=== PATIENT | female | born 1975 | race Caucasian/White ===

== ENCOUNTER 2023-11-23 09:06 | Outpatient (CLI) | payer OTHER, SELFPAY ==
[2023-11-23 11:18] LABS: Hemoglobin A1C 5.4 % (<5.7)
[2023-11-23 12:06] LABS: Free T4 Free Thyroxine 0.97 ng/mL (0.78-2.19); Vitamin D 25 Hydroxy 69.9 ng/mL
[2023-11-23 13:57] LABS: Alanine Aminotransferase 26 U/L (6-35); Albumin Level 4.5 g/dL (3.5-5.1); Alkaline Phosphatase 59 U/L (38-126); Amylase 112 U/L (30-110); Anion Gap 9 mmol/L (4-12); Aspartate Amino Transferase 33 U/L (14-36); Bilirubin,Total 0.4 mg/dL (0.2-1.3); Blood Urea Nitrogen 15 mg/dL (7-17); Calcium 9.1 mg/dL (8.4-10.2); Carbon Dioxide 25 mmol/L (22-30); Chloride 104 mmol/L (98-107); Cholesterol 210 mg/dL (0-200); Estimated Glomerular Filt Rate > 60; Glucose 93 mg/dL (65-110); HDL Direct 61 mg/dL; Lipase 203 U/L (23-300); Potassium 4.4 mmol/L (3.4-5.0); Sodium 138 mmol/L (137-145); Triglycerides 79 mg/dL (<150)
[2023-11-23 14:08] LABS: LDL Cholesterol Direct 124 mg/dL
[2023-11-23 15:06] LABS: Folic Acid > 20.0 ng/mL (2.76->20)
[2023-11-26 14:11] LABS: Insulin Level Total 6.2 uIU/mL (<=18.4)
[2023-11-29 08:17] LABS: T3 Free 3.3 pg/mL
== END 2023-11-23 09:07 | disposition home or self-care (01) ==
DX: R53.83 Other fatigue (principal); E66.9 Obesity, unspecified; R14.0 Abdominal distension (gaseous); E61.1 Iron deficiency; M25.9 Joint disorder, unspecified
CPT/HCPCS: 36415; 80053; 80061; 82150; 82306; 82607; 82746; 83036; 83525; 83690; 84439; 84443; 84480

== ENCOUNTER 2024-06-13 12:01 | Outpatient (CLI) | payer OTHER, SELFPAY ==
[2024-06-14 08:02] LABS: Sex Hormone Binding Globulin 47 nmol/L (17-124)
== END 2024-06-13 12:02 | disposition home or self-care (01) ==
DX: R68.82 Decreased libido (principal)
CPT/HCPCS: 36415; 84270; 84402; 84403

== ENCOUNTER 2024-10-06 09:51 | Outpatient (CLI) | payer OTHER, SELFPAY ==
--- OUTSIDE RECORDS SUMMARY | 2024-10-06 10:58 | XMS_ITS | Patient Health Summary ---
Author Organization [facility] Address [address] [place] [address] Care Team Providers Care Concrete Puddler Name Role Phone Janae Valentin MD Unavailable Arturo Arguello MD Unavailable [phone] Rossana Mcdonald MD Unavailable Unavailab Luiza Mehta DO Primary Care Provider [phone] Note from [facility],non-owned Affiliates and Associated Physician Practices is amultiple site organization consisting of ambulatory clinics and hospital sitesin [place], [place], [place] and [place]. This disclosure is being madepursuant to the Care Everywhere program and may not contain all information available regarding this patient. Last updated 18.[facility] Allergies * Topiramate(Other) -Medium Criticality Medications * Be aware that medications may not be up to date on this document. Alwaysverify current medications with the patient. * Multiple Vitamin (MULTIVITAMIN PO) Take 1 tablet by mouth once daily * Magnesium 400 MG Take by mouth 2 times daily as needed Reasons: Helps with constipation * tretinoin (RETIN-A) 0.025 % cream(Started 12/29/2021) Pea sized amount to entire face at night. 30 days supply. 11 refills by 12/29/2022 * esomeprazole (NEXIUM) 40 MG capsule(Started 01/30/2022) Take 1 (one) capsule by mouth 2 times daily, before breakfast and supper 3 refills by 01/30/2023 * omeprazole (PRILOSEC) 40 MG capsule(Started 03/05/2022) Take 1 (one) capsule by mouth 2 times daily, before breakfast and supper 3 refills by 03/05/2023 * Other(Started 10/10/2022) W-Biest 50/50 Crm 7.5 mg/mL, 2 pumps to skin once daily * DHEA 25 MG(Started 10/10/2022) Take 1 capsule by mouth once daily * Loteprednol Etabonate 0.25 % SUSP 1 drop by Ophthalmic route 4 times daily * SUMAtriptan (Imitrex) 100 MG tablet(Started 05/13/2023) Take medication at the onset of migraine, may repeat in 2 hours 3 refills by 05/12/2024 * escitalopram (Lexapro) 5 MG tablet(Started 05/13/2023) Take 1 (one) tablet by mouth at bedtime Reasons: Feeling Anxious 3 refills by 05/12/2024 * propranolol (Inderal) 10 MG tablet(Started 04/10/2024) TAKE 1 TABLET BY MOUTH EVERY 8 HOURS NEEDED FOR ANXIETY AND FOR INSOMNIA AND FOR PALPITATIONS * hydrOXYzine HCl (Atarax) 25 MG tablet(Started 04/10/2024) TAKE 1 TABLET BY MOUTH 4 TIMES DAILY NEEDED FOR ANXIETY Active Problems Problem Noted Date Diagnosed Date IC (interstitial cystitis) 05/18/2022 Irritable bowel syndrome with constipation 05/18 Other proteinuria 12/27/2021 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 12/27/2021 Blood coagulation disorder 11/28/2021 Migraine with aura 11/28/2021 Infectious colitis 11/03/2021 MTHFR mutation 09/05/2021 Palpitations 09/05/2021 Hot flashes 09/05/2021 Sigmoid ulcer 09/05/2021 Elevated liver enzymes 09/05/2021 Liver lesion 09/05/2021 Healthcare maintenance 09/05/2021 Insomnia 09/05/2021 Esophagitis 09/05/2021 Amenorrhea 09/05/2021 Anxiety 07/18/2021 Chronic migraine without aur a without status migrainosus, not intractable 05/26/2015 Chronic neck pain 05/26/2015 Resolved Problems Problem Noted Date Diagnosed Date Resolved Date Sepsis due to group B Streptococcus 12/13/2021 12/13/2021 Constipation 12/13/2021 01/10/2022 Irregular periods 11/28/2021 12/13/2021 Menometrorrhagia 11/28/2021 12/13/2021 Pain in pelvis 11/28/2021 12/12/2021 Thickened endometrium 11/28/20212021 Syncope and collapse 11/03/2021 022 Post-operative pain 11/03/2021 12/13/19 Pain of breast 03/19/2016 12/12/2021 Symptoms involving urinary system 03/19/2016 12/13/2021 YESENIA (stress urinary incontinence, female) 12/13/2021 POP-Q stage 2 cystocele 04/27 POP-Q stage 2 rectocele 04/27 Uterovaginal prolapse 2021 Immunizations * INFLUENZA VACCINE, TRIV. (AFLURIA, FLUZONE TRIVALENT; 6MO+) (IIV3)(Given 05/21/2013) * Covid Moderna primary monovalent 12+ yr 0.5mL(Given 05/04/2021, 10/12/2020, 09/13/2020) * INFLUENZA VACCINE, CELL CULTURE, QUADR. (FLUCELVAX QUADRIVALENT; 6MO+) (CCIIV4)(Given 07/18/2021) * INFLUENZA VACCINE, HIGH-DOSE, QUADR. (FLUZONE HIGH-DOSE QUADRIVALENT; 65Y+), 0.7 ML (HD-IIV4)(Given 08/26/2014) * INFLUENZA VACCINE, QUADR. (FLUZONE; FLULAVAL; FLUARIX; AFLURIA QUADRIVALENT; 6MO+), 0.5 ML (IIV4)(Given 05/13/2023, 07/23/2016) * TDAP (7yrs+)(Given 05/13/2023, 05/21/2013) Social History Tobacco Use Types Packs/Day Years Used Date Smoking Tobacco: Never Smokeless Tobacco: Never Tobacco Cessation:Counseling Given: Not Answered Alcohol Use Standard Drinks/Week Comments Yes 0 (1 standard drink = 0.6 oz pur e alcohol) occassional AUDIT-C Answer Date Recorded Q1: How often do you have a drink containing alc ohol? Monthly or less 11/03/2021 Q2: How many drinks containi ng alcohol do you have on a typical day when you are drinking? 1 or 2 11/03/2021 Q3: How often do you have si x or more drinks on one occasion? Monthly 11/03/2021 PHQ-2 Answer Date Recorded Patient Health Questionnaire-2 Score 1 05/13/2023 Hunger Vital Sign Answer Date Recorded Within the past 12 months, y ou worried that your food would run out before you got the money to buy more. Never true 11/02/19 22 Within the past 12 months, t he food you bought just didn't last and you didn't have money to get more. Never true 11/01/2021 Sex and Gender Information Value Date Recorded Sex Assigned at Female 07/17/2021 2:10 PM SUBSTITUTE NURSE Gender Identity Female 07/17/2021 2:10 PM SUBSTITUTE NURSE Sexual Orientation Straight 07/17/2021 2: 10 PM SUBSTITUTE NURSE Last Filed Vital Signs Vital Sign Reading Time Taken Comments Blood Pressure 110/68 05/13/2023 9:55 AM CDT Pulse 62 05/13/2023 9:55 AM CDT Temperature 37 C (98.6 F) 05/13/2023 9:55 AM CDT Respiratory Rate 16 01/30/2022 9:51 AM CDT Oxygen Saturation 98% 05/13/2023 9:55 AM CDT Inhaled Oxygen Concentration - - Weight 67.9 kg (149 lb 12.8 oz) 05/13/2023 9:55 AM CDT Height 172.7 cm (5' 8 ) 05/13/2023 9:55 AM CDT Body Mass Index 22.78 05/13/2023 9:55 AM CDT Medical Devices Implanted Type Area Driver Device Identifier Shelf Expiration Date Model / Serial / Lot Sys Ureth Supp Obtryx Midurethral Trnstr Implanted:Qty: 1 on 11/01/2021 by Arturo Arguello MD at [facility] 09/16/2024 [id number] / / [id number] Procedures * URINALYSIS MICROSCOPIC ONLY REFLEXED(Performed 05/13/2023) Performed for 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 * URINALYSIS REFLEX MICROSCOPIC REFLEX CULTURE(Performed 05/13/2023) Performed for 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 * LIPID PROFILE(Performed 05/13/2023) Performed for Screening, ischemic heart disease * CBC W AUTO DIFFERENTIAL(Performed 05/13/2023) Performed for Healthcare maintenance * TSH REFLEX FREE T4(Performed 05/13/2023) Performed for Anxiety * COMPREHENSIVE METABOLIC PANEL(Performed 05/13/2023) Performed for Diabetes mellitus screening * URINALYSIS AUTO - POINT OF CARE (AMB) STL(Performed 01/18/2022) Performed for YESENIA (stress urinary incontinence, female) * CT UROGRAM(Performed 01/11/2022) Performed for Left flank pain * UT ED EGD FLEX TRANSORAL DX(Performed 01/02/2022) Performed for Esophagitis * EGD(Performed 01/02/2022) * UT TANGNTL BX SKIN SINGLE LES(Performed 12/29/2021) Performed for Neoplasm of uncertain behavior of skin * UT TANGNTL BX SKIN EA SEP ADDL(Performed 12/29/2021) Performed for Neoplasm of uncertain behavior of skin * DERMATOPATHOLOGY(Performed 12/29/2021) Performed for Neoplasm of uncertain behavior of skin * URINALYSIS MICROSCOPIC ONLY REFLEXED(Performed 12/12/2021) Performed for Dysuria * COMPREHENSIVE METABOLIC PANEL(Performed 12/12/2021) Performed for Elevated liver enzymes, Liver lesion * URINALYSIS REFLEX MICROSCOPIC REFLEX CULTURE(Performed 12/12/2021) Performed for Dysuria * MITOCHONDRIAL ANTIBODY SCREEN(Performed 12/12/2021) Performed for Elevated liver enzymes * CERULOPLASMIN(Performed 12/12/2021) Performed for Elevated liver enzymes * FERRITIN(Performed 12/12/2021) Performed for Elevated liver enzymes * CENTROMERE B ANTIBODIES(Performed 12/12/2021) Performed for Elevated liver enzymes * SUMI+C3+C4+RA+DNA+SJ+ANTICHROMATIN(Performed 12/12/2021) Performed for Elevated liver enzymes * JENNIFER BLOOD SCREEN W/REFLEX TITER(Performed 12/12/2021) Performed for Elevated liver enzymes * CULTURE URINE(Performed 11/16/2021) Performed for Postop check * CARDIAC EKG ORDER(Performed 11/09/2021) * INFLAMMATORY BOWEL DISEASE PANEL(Performed 11/05/2021) Performed for Colitis * C DIFFICILE GDH AG + TOXIN A+B(Performed 11/04/2021) Performed for Abnormal bowel habits * CULTURE STOOL+ E COLI SHIGA-LIKE TOXIN(Performed 11/04/2021) Performed for Abnormal bowel habits * URINE MICROSCOPIC ONLY(Performed 11/03/2021) Performed for Syncope and collapse * URINALYSIS REFLEX TO MICROSCOPIC NO CULTURE(Performed 11/03/2021) Performed for Syncope and collapse * CT ABDOMEN PELVIS W CONTRAST(Performed 11/03/2021) Performed for Syncope and collapse, Post-operative pain * CREATININE - POCT INTERFACED(Performed 11/03/2021) * XR CHEST 1VW PORTABLE(Performed 11/03/2021) Performed for Syncope and collapse * TROPONIN I(Performed 11/03/2021) * COMPREHENSIVE METABOLIC PANEL(Performed 11/03/2021) * CBC W AUTO DIFFERENTIAL(Performed 11/03/2021) * EKG 12-LEAD(Performed 11/03/2021) Performed for Syncope and collapse * HGB HCT PANEL(Performed 11/02/2021) Performed for Uterovaginal prolapse * PATHOLOGY TISSUE EXAM (STL)(Performed 11/01/2021) Performed for Uterovaginal prolapse * UT SLING OPER STRES INCONTINENCE(Performed 11/01/2021) Performed for N39.3 * UT COMBINED ANT/POST COLPORRHAPHY(Performed 11/01/2021) Performed for N39.3 * HYSTERECTOMY VAGINAL SALPINGO/OOPHORECTOMY(Performed 11/01/2021) Performed for N39.3 * HCG URINE QUALITATIVE - POCT (IP) INTERFACED(Performed 11/01/2021) * HCG URINE QUAL POCT NOTIFICATION(Performed 11/01/2021) * MRI ENTEROGRAPHY(Performed 10/07/2021) Performed for Bloating, Colitis, Altered bowel habits, Blood in stool * CREATININE - POCT INTERFACED(Performed 10/07/2021) * MAMMO BILAT SCREENING W ADIEL(Performed 10/03/2021) Performed for Screening breast examination * CULTURE URINE(Performed 09/21/2021) Performed for YESENIA (stress urinary incontinence, female), POP-Q stage 2 cystocele, POP-Q stage 2 rectocele, Uterine prolapse, Uterovaginal prolapse * CALPROTECTIN FECAL(Performed 09/06/2021) Performed for Diarrhea, unspecified type * PROLACTIN(Performed 09/05/2021) Performed for Amenorrhea * FSH + LH PANEL(Performed 09/05/2021) Performed for Amenorrhea * VITAMIN D 25-HYDROXY(Performed 09/05/2021) Performed for Encounter for vitamin deficiency screening * TSH HI LOW REFLEX FREE T4(Performed 09/05/2021) Performed for Thyroid disorder screening * LIPID PROFILE REFLEX LDL DIRECT(Performed 09/05/2021) Performed for Lipid screening * HEMOGLOBIN A1C(Performed 09/05/2021) Performed for Diabetes mellitus screening * PATHOLOGY TISSUE(Performed 09/04/2021) Performed for Other constipation, Bloating, Epigastric pain * UT ED EGD FLEX TRANSORAL DX(Performed 09/04/2021) Performed for Other constipation, Bloating, Epigastric pain * EGD(Performed 09/04/2021) * HCG URINE QUALITATIVE - POCT (IP) INTERFACED(Performed 09/04/2021) * HCG URINE QUAL POCT NOTIFICATION(Performed 09/04/2021) Performed for Preop examination * URINALYSIS AUTO - POINT OF CARE(Performed 08/31/2021) Performed for YESENIA (stress urinary incontinence, female) * CULTURE URINE(Performed 08/31/2021) Performed for YESENIA (stress urinary incontinence, female) * T4 FREE(Performed 08/30/2021) Performed for Diarrhea, unspecified type * TSH(Performed 08/30/2021) Performed for Diarrhea, unspecified type * TISSUE TRANSGLUTAMINASE AB IGA(Performed 08/30/2021) Performed for Diarrhea, unspecified type * IGA BLOOD(Performed 08/30/2021) Performed for Diarrhea, unspecified type * ERYTHROCYTE SEDIMENTATION RATE(Performed 08/30/2021) Performed for Diarrhea, unspecified type * C-REACTIVE PROTEIN(Performed 08/30/2021) Performed for Diarrhea, unspecified type * COMPREHENSIVE METABOLIC PANEL(Performed 08/30/2021) Performed for Diarrhea, unspecified type * CBC W AUTO DIFFERENTIAL(Performed 08/30/2021) Performed for Diarrhea, unspecified type * PAP IG LB +HPV APTIMA REFLEX 16,18/45 FOR HR POS(Performed 08/15/2021) Performed for Well woman exam with routine gynecological exam * HOLTER MONITOR(Performed 08/01/2021) Performed for Palpitations, Anxiety * TSH+FREE T4+FREE T3(Performed 07/18/2021) Performed for Palpitations * HEMOGLOBIN A1C(Performed 07/18/2021) Performed for Screening for diabetes mellitus * LIPID PROFILE(Performed 07/18/2021) Performed for Screening for lipid disorders * CBC W AUTO DIFFERENTIAL(Performed 07/18/2021) Performed for Generalized abdominal discomfort, Dyspepsia, Palpitations * COMPREHENSIVE METABOLIC PANEL(Performed 07/18/2021) Performed for Generalized abdominal discomfort, Dyspepsia * LIPASE BLOOD(Performed 07/18/2021) Performed for Generalized abdominal discomfort, Dyspepsia * HELICOBACTER PYLORI UREA BREATH TEST(Performed 07/18/2021) Performed for Generalized abdominal discomfort, Dyspepsia * HIV-1 HIV-2 ANTIBODY + HIV P24 AG PANEL(Performed 07/18/2021) Performed for Screening for HIV without presence of risk factors * HEPATITIS C ANTIBODY(Performed 07/18/2021) Performed for Need for hepatitis C screening test * EKG 12-LEAD(Performed 07/18/2021) Performed for Palpitations Results * URINALYSIS MICROSCOPIC ONLY REFLEXED (05/13/2023 10:43 AM CDT) Only the most recent of2 resultswithin the time period is included. WBC UA None seen 0 - 5 /hpf [facility] INSURANCE BILL RBC UA None seen 0 - 2 /hpf [facility] INSURANCE BILL Epithelial Cells (non renal) 0-10 0 - 10 /hpf [facility] INSURANCE BILL Epithelial Cells (renal) NOT AVAILABLE [facility] INSURANCE BILL Comment:Result cannot be obt ained for this observation. Casts ua None seen None seen /lpf [facility] INSURANCE BILL Casts UA NOT AVAILABLE [facility] BILL Comment:Result cannot be obt ained for this observation. Crystals UA NOT AVAILABLE [facility] B[facility] Comment:Result cannot be obt ained for this observation. Crystals UA NOT AVAILABLE [facility] B[facility] Comment:Result cannot be obt ained for this observation. Mucus UA Present Not Estab. /LPF [facility] INSURANCE BILL Bacteria UA None seen None seen/Few [facility] INSURANCE BILL Yeast UA NOT AVAILABLE [facility] BILL Comment:Result cannot be obt ained for this observation. Trichomonas UA NOT AVAILABLE [facility] Comment:Result cannot be obt ained for this observation. Comment Urine NOT AVAILABLE [facility] B[facility] Comment:Result cannot be obt ained for this observation. 05/13/2023 10:4 3 AM CDT 05/13/2023 Narrative Resulting Agency Comment Lab Testing performed at: [facility] [place] [address] [facility] [phone] Luiza Mcgarry DO LAB - URINALYSIS O RDERABLES Performing Organization Address [facility]/ZIP Co de Phone Number [facility] INSURANCE BILL [address] [place] [address] * URINALYSIS REFLEX MICROSCOPIC REFLEX CULTURE (05/13/2023 10:43 AM CDT) Only the most recent of2 resultswithin the time period is included. Specific [place] UA 1.006 1.005 - 1.030 [facility] INSURANCE BILL pH UA 7.0 5.0 - 7.5 [facility] INSURANCE BILL Color UA Yellow Yellow [facility] INSURANCE BILL Appearance Clear Clear [facility] INSURANCE BILL Leukocyte UA Negative Negative [facility] INSURANCE BILL Protein UA Negative Negative/Tra ce [facility] INSURANCE BILL Glucose UA Negative Negative [facility] INSURANCE BILL Ketone UA Negative Negative [facility] INSURANCE BILL Occult Blood Urine Negative Negative [facility] INSURANCE BILL Bilirubin UA Negative Negative [facility] INSURANCE BILL Urobilinogen 0.2 0.2 - 1.0 mg/dL [facility] INSURANCE BILL Nitrite UA Negative Negative [facility] INSURANCE BILL Microscopic Examination Urine [facility] INSURANCE BILL Comment:Microscopic follows if indicated. Microscopic Examination Urine See below: [facility] INSURANCE BILL Comment:Microscopic was chio cated and was performed. Urinalysis Reflex [facility] INSURANCE BILL Comment:This specimen will n ot reflex to a Urine Culture. Urine URINE SPECIMEN OBTAINED BY CLEAN CATCH PROCEDURE / Unknown 05/13/2023 10:43 AM CDT 05/13/2023 Narrative Resulting Agency Comment Lab Testing performed at: [facility] [place] [address] [facility] [id number] Luiza Mcgarry DO LAB - URINALYSIS O RDRUDYBLES Performing Organization Address City/[facility]/ZIP Co de Phone Number [facility] INSURANCE BILL [address] [place] [address] * TSH REFLEX FREE T4 (05/13/2023 10:42 AM CDT) TSH 2.932 0.350 - 4.940 uIU/mL [facility] INSURANCE BILL Blood BLOOD SPECIMEN / Unknown 05/13/2023 10:42 AM CDT 05/13/2023 Narrative Resulting Agency Comment Lab Testing performed at: [facility] [address] [facility] [phone] Luiza Mcgarry DO LAB - CHEMISTRY OR DERABLES [facility] INSURANCE BILL [address] [place] [address] * (ABNORMAL) CBC WITH DIFFERENTIAL (05/13/2023 10:42 AM CDT) Only the most recent of4 resultswithin the time period is included. WBC 8.1 4.4 - 10.7 x10E9/L [facility] INSURANCE BILL RBC 4.56 3.80 - 5.20 x10E12/L [facility] INSURANCE BILL Hemoglobin 14.2 12.0 - 15.6 gm/dL [facility] INSURANCE BILL Hematocrit 45.4 35.9 - 45.5 % [facility] INSURANCE BILL MCV 99.6(H) 80.7 - 98.3 fl [facility] INSURANCE BILL MCH 31.1 26.7 - 34.0 pg [facility] INSURANCE BILL MCHC 31.3 30.8 - 35.9 gm/dL [facility] INSURANCE BILL RDW 13.2 12.1 - 14.9 % [facility] INSURANCE BILL Platelet Count 281 153 - 416 x10E9/L [facility] INSURANCE BILL Comment:MPV FL BLOOD ([facility]) 1 1.1 fl 9.4-12.9 Granulocytes % 57.6 44.0 - 73.0 % [facility] INSURANCE BILL Lymphocytes % 29.8 20.0 - 43.0 % [facility] INSURANCE BILL Monocytes % 9.9 5.0 - 13.0 % [facility] INSURANCE BILL Eosinophils % 2.0 0.0 - 6.0 % [facility] INSURANCE BILL Basophils % 0.5 0.0 - 2.0 % [facility] INSURANCE BILL Granulocytes Absolute 4.67 2.01 - 7.14 x10E9/L [facility] INSURANCE BILL Lymphocytes Absolute 2.42 1.07 - 3.94 x10E9/L [facility] INSURANCE BILL Monocytes Absolute 0.80 0.26 - 1.07 x10E9/L [facility] INSURANCE BILL Eosinophils Absolute 0.16 0 - 0.47 x10E9/L [facility] INSURANCE BILL Basophils Absolute 0.04 0 - 0.08 x10E9/L [facility] INSURANCE BILL Immature Granulocytes 0.2 0 - 1 % [facility] INSURANCE BILL Immature Granulocytes Absolute 0.02 0.00 - 0.06 x10E9/L [facility] INSURANCE BILL nRBC 0 /100 WBC [facility] INSURANCE BILL Blood BLOOD SPECIMEN / Unknown 05/13/2023 10:42 AM CDT 05/13/2023 Narrative Resulting Agency Comment Lab Testing performed at: [address] [phone] Luiza Mcgarry DO LAB - HEMATOLOGY O RDERABLES [facility] INSURANCE BILL [address] [place] [address] * (ABNORMAL) COMPREHENSIVE METABOLIC PANEL (05/13/2023 10:42 AM CDT) Only the most recent of5 resultswithin the time period is included. Glucose 85 70 - 105 mg/dL [facility] INSURANCE BILL BUN 10 5.3 - 18.7 mg/dL [facility] INSURANCE BILL Creatinine 0.82 0.57 - 1.11 mg/dL [facility] INSURANCE BILL eGFR by CKD-EPI 88(L) >=90 mL/min/1.7 3 m2 [facility] INSURANCE BILL Sodium 139 136 - 145 mmol/L [facility] INSURANCE BILL Potassium 4.7 3.5 - 5.1 mmol/L [facility] INSURANCE BILL Chloride 103 98 - 107 mmol/L [facility] INSURANCE BILL CO2 28 22 - 29 mmol/L [facility] INSURANCE BILL Calcium 9.7 8.4 - 10.4 mg/dL [facility] INSURANCE BILL Protein Total 6.9 6.4 - 8.3 gm/dL [facility] INSURANCE BILL Albumin 3.9 3.4 - 5.0 gm/dL [facility] INSURANCE BILL Bilirubin Total 0.5 0.2 - 1.2 mg/dL [facility] INSURANCE BILL Alkaline Phosphatase 51 40 - 150 U/L [facility] INSURANCE BILL AST 16 5 - 34 U/L [facility] INSURANCE BILL ALT 15 0 - 55 U/L [facility] INSURANCE BILL Blood BLOOD SPECIMEN / Unknown 05/13/2023 10:42 AM CDT 05/13/2023 Narrative Resulting Agency Comment Lab Testing performed at: [address] [phone] Luiza E Bensinger DO LAB - CHEMISTRY OR DERABLES Performing Organization Address City/[facility] Co de Phone Number [facility] INSURANCE BILL [address] [place] [address] * (ABNORMAL) LIPID PROFILE (LIPID PANEL) (05/13/2023 10:42 AM CDT) Only the most recent of2 resultswithin the time period is included. Cholesterol 209(H) <200 mg/dL [facility] INSURANCE BILL Triglycerides 139 <150 mg/dL [facility] INSURANCE BILL HDL Cholesterol 71 >40 mg/dL [facility] INSURANCE BILL VLDL Calculated 28 <=30 mg/dL [facility] INSURANCE BILL LDL Calculated 110 <130 mg/dL [facility] INSURANCE BILL Blood BLOOD SPECIMEN / Unknown 05/13/2023 10:42 AM CDT 05/13/2023 Narrative Resulting Agency Comment Lab Testing performed at: [address] [phone] Luiza Mcgarry DO LAB - CHEMISTRY OR DERABLES Performing Organization Address City/[facility] Co de Phone Number [facility] INSURANCE BILL [address] [place] [address] * URINALYSIS AUTO - POINT OF CARE (AMB) STL (01/18/2022 9:20 AM CDT) Clarity UA POCT na [facility] Color UA POCT na [facility] Leukocyte UA neg Negative [facility] Nitrite UA POCT neg Negative [facility] Urobilinogen UA 0.2 0.1 - 1.[address] [facility] Protein UA POCT neg Negative [facility] pH UA 8.0 5.0 - 8.[address] [facility] Blood UA neg Negative [facility] Specific [place] UA POCT 1.015 1.002 - 1.[address] [facility] Ketone UA neg Negative [facility] Bilirubin UA POCT neg Negative [facility] Glucose UA neg Negative [facility] Expiration Date 05/04/[address] [facility] Lot # [id number] [facility] QC Verified Yes Yes [facility] Urine URINE / Unknown 01/18/2022 9 :20 AM CDT Viri Leiva MD LAB - POINT OF CAR E ORDERABLES Performing Organization Address City/State/[facility] Co de Phone Number [facility] [address], [address] [phone] * CT UROGRAM (01/11/2022 9:20 AM CDT) Anatomical Region Laterality Modality Abdomen, Pelvis Computed Tomogra phy 01/11/2022 10:4 2 AM CDT Impressions 01/11/2022 10:47 AM CDT No renal calculi. No renal mass. No hydronephrosis. The bladder is unremarkable. Constipation. *Reading Radiologist: Joepsh Kapadia on 01/11/2022 at 10:47 AM Narrative 01/11/2022 10:[address] urogram INDICATION: Left flank pain. Acute cystitis. TECHNIQUE: Helical images were obtained through the abdomen and pelvis without contrast, during venous phase imaging and during 8 minute delay. Sagittal and coronal reconstructions were performed. Contrast: 100 cc of Isovue-370 was utilized. FINDINGS: The study is compared to the exam from 11/03/2021. The lung bases are clear of infiltrate. There are mild degenerative changes of the spine. There is no liver mass. There is no intrahepatic biliary dilatation. No gallstones are seen within the gallbladder. The pancreas is unremarkable. The spleen is unremarkable. There is no adrenal mass. Noncontrast images show no renal calculi. The kidneys enhance homogeneously. There is no mass. The kidneys excrete contrast bilaterally. The ureters are normal in caliber. No calculi are seen along the course of the ureters. The bladder fills with contrast and is unremarkable. The aorta is normal in caliber. The IVC is normal in caliber. There is no retroperitoneal adenopathy. There is no mesenteric adenopathy. The stomach is unremarkable. The small bowel loops in the upper abdomen are nondistended with no bowel wall thickening. Feces is seen throughout the colon. There is no thickening of the wall of the ascending, transverse or descending colons. Within the pelvis: The appendix is not visualized to advantage. However there is no CT evidence for acute appendicitis. The patient is status post hysterectomy. There are no adnexal masses. There is no free fluid within the pelvis. There is no inguinal adenopathy. There is no pelvic adenopathy. Feces is seen within the rectosigmoid colon. Procedure Note Joesph Kapadia MD - 01/11/2022 CT urogram INDICATION: Left flank pain. Acute cystitis. TECHNIQUE: Helical images were obtained through the abdomen and pelvis without contrast, during venous phase imaging and during 8 minute delay. Sagittal and coronal reconstructions were performed. Contrast: 100 cc of Isovue-370 was utilized. FINDINGS: The study is compared to the exam from 11/03/2021. The lung bases are clear of infiltrate. There are mild degenerative changes of the spine. There is no liver mass. There is no intrahepatic biliary dilatation. No gallstones are seen within the gallbladder. The pancreas is unremarkable. The spleen is unremarkable. There is no adrenal mass. Noncontrast images show no renal calculi. The kidneys enhance homogeneously. There is no mass. The kidneys excrete contrast bilaterally. The ureters are normal in caliber. No calculi are seen along the course of the ureters. The bladder fills with contrast and is unremarkable. The aorta is normal in caliber. The IVC is normal in caliber. There is no retroperitoneal adenopathy. There is no mesenteric adenopathy. The stomach is unremarkable. The small bowel loops in the upper abdomen are nondistended with no bowel wall thickening. Feces is seen throughout the colon. There is no thickening of the wall of the ascending, transverse or descending colons. Within the pelvis: The appendix is not visualized to advantage. However there is no CT evidence for acute appendicitis. The patient is status post hysterectomy. There are no adnexal masses. There is no free fluid within the pelvis. There is no inguinal adenopathy. There is no pelvic adenopathy. Feces is seen within the rectosigmoid colon. IMPRESSION No renal calculi. No renal mass. No hydronephrosis. The bladder is unremarkable. Constipation. *Reading Radiologist: Joesph Kapadia on 01/11/2022 at 10:47 AM Arturo Arguello MD CT ORDERABLES * EGD (01/02/2022 8:40 AM CDT) Report Endoscopy POC Endoscopy Department Report __ _ Patient Name: Anabell Louie Procedure Date: 01/02/2022 8:40 AM Date of : 1975 Classification: Outpatient Gender: Female Ethnicity: Not or Race: White __ _ Providers: Mag Chang MD, Delon Chang (Fellow) Referring MD: Luiza Ansari (Referring ), Sarita Mckeon (Referring ) Procedure: Upper GI endoscopy Indications: Esophageal reflux symptoms that persist despite appropriate therapy Medications: Monitored Anesthesia Care Patient Profile: This is a 46 year old female with history of esophagitis presenting to endoscopy to check for mucosal healing. Currently on pantoprazole 40mg QD. Description of Procedure: Pre-Anesthesia Assessment: - Prior to the procedure, a History and Physical was performed, and patient medications and allergies were reviewed. The patient's tolerance of previous anesthesia was also reviewed. The risks and benefits of the procedure and the sedation options and risks were discussed with the patient. All questions were answered, and informed consent was obtained. Prior Anticoagulants: The patient has taken no previous anticoagulant or antiplatelet agents. ASA Grade Assessment: II - A patient with mild systemic disease. After reviewing the risks and benefits, the patient was deemed in satisfactory condition to undergo the procedure. After obtaining informed consent, the endoscope was passed under direct vision. Throughout the procedure, the patient's blood pressure, pulse, and oxygen saturations were monitored continuously. The GIF-HQ190 was introduced through the mouth, and advanced to the second part of duodenum. The upper GI endoscopy was accomplished without difficulty. The patient tolerated the procedure well. Findings: Esophagogastric landmarks were identified: the Z-line was found at 35 cm, the gastroesophageal junction was found at 35 cm and the site of hiatal narrowing was found at 38 cm from the incisors. LA Grade B (one or more mucosal breaks greater than 5 mm, not extending between the tops of two mucosal folds) esophagitis was found at the gastroesophageal junction. Improved from prior EGD, but still present. No biopsies obtained A non-obstructing partial Schatzki ring was found at the gastroesophageal junction. A 3 cm hiatal hernia was seen on both forward view and retroflexion in stomach. The exam of the stomach was otherwise normal. The examined duodenum was normal. Estimated Blood Loss: Estimated blood loss was minimal. Complications: No immediate complications. Impression: 1) LA Grade B reflux esophagitis. Slightly improved from last EGD 2) 3 cm hiatal hernia. 3) Partial Schatzki ring in distal esophagus 4) Normal examined duodenum and stomach. 5) No specimens collected. Recommendation: - Patient has a contact number available for emergencies. The signs and symptoms of potential delayed complications were discussed with the patient. Return to normal activities tomorrow. Written discharge instructions were provided to the patient. - Resume previous diet. - Change pantoprazole to Prilosec (omeprazole) 40 mg PO BID. - Avoid aspirin, ibuprofen, naproxen, or other non-steroidal anti-inflammatory drugs as much as possible - Repeat upper endoscopy in 3-6 months to check healing. - Return to GI office as previously scheduled. Attending Participation: I was present and participated during the entire procedure, including non-leija portions. Procedure Code(s): --- Professional --- 86730, Esophagogastroduode noscopy, flexible, transoral; diagnostic, including collection of specimen(s) by brushing or washing, when performed (separate procedure) Diagnosis Code(s): --- Professional --- K21.0, Gastro-esophageal reflux disease with esophagitis K44.9, Diaphragmatic hernia without obstruction or gangrene CPT copyright 2019 [employer]. All rights reserved. The codes documented in this report are preliminary and upon industrial diamond polisher review may be revised to meet current compliance requirements. Mag Chang MD 01/02/2022 9:36:43 AM This report has been signed electronically. Note Initiated On: 01/02/2022 8:40 AM Number of Addenda: [address] PROVATION 01/02/2022 8:40 AM CDT Mag Chang MD GI PROCEDURE ORDERAB LES [facility] PROVATION * UT TANGNTL BX SKIN EA SEP ADDL, UT TANGNTL BX SKIN SINGLE LES (12/29/2021 12:46 PM CDT) Narrative Martha Salter MD - 12/29/2021 12:46 PM CDT Conor Acuña MD 12/29/2021 12:47 PM Risks, benefits and alternatives to shave biopsy were discussed with the patient. Verbal consent was obtained. Encounter Diagnoses Name Primary? Acne vulgaris Yes Neoplasm of uncertain behavior of skin Actinic skin damage Lentigines Multiple benign melanocytic nevi of upper and lower extremities and trunk Location: L waistline, L mid-back, R upper abdomen, R lower leg Skin prep: Alcohol Anesthesia: 1% lidocaine with epinephrine Hemostasis: Aluminum chloride Dressing and wound care discussed. Specimen(s) placed in a patient labeled container and sent to [facility] Dermatopathology. Patient agrees to phone call for results and message if not available. Conor Acuña MD Martha Salter MD PROCEDURE/ROCHELLE R SURGICAL ORDERABLES * Dermatopathology (Specimen Count = 3) (12/29/2021 12:00 AM CDT) Case Report Dermatopathology Report Case: [id number] Authorizing Provider: Martha Salter, Collected: 12/29/2021 12:00 AM Ordering Location: [facility] Received: 12/29/2021 02:26 PM Dermatology Pathologist: Martha Salter MD Specimens: A) - Skin, left waistline B) - Skin, left mid back C) - Skin, right upper abdomen D) - Skin, right lower leg 2 1:34 PM CDT DERMATOPATHOLOGY LABORATORY Final Diagnosis Specimen A. SKIN, left waistline: INTRADERMAL MELANOCYTIC NEVUS (D22.5) Specimen B. SKIN, left mid back: INTRADERMAL MELANOCYTIC NEVUS (D22.5) Specimen C. SKIN, right upper abdomen: INTRADERMAL MELANOCYTIC NEVUS (D22.5) (see microscopic description) Specimen D. SKIN, right lower leg: JUNCTIONAL MELANOCYTIC NEVUS, IRRITATED (D22.71) POST-INFLAMMATORY PIGMENT ALTERATION (L81.9) 2 1:34 PM CDT DERMATOPATHOLOGY LABORATORY Clinical History A-C: IDN vs. Acrochordon D: Nevus, R/O Atypia 2 1:34 PM CDT DERMATOPATHOLOGY LABORATORY Gross Description Specimen A: Received is one formalin filled container labeled with the patient's name and designated left waistline. The specimen consists of a shave biopsy measuring 3c3q3oj. Jar 0. Specimen B: Received is one formalin filled container labeled with the patient's name and designated left mid back. The specimen consists of a shave biopsy measuring 5k2b7qs. Jar 0. Specimen C: Received is one formalin filled container labeled with the patient's name and designated right upper abdomen. The specimen consists of a shave biopsy measuring 1p2k6ab. Jar 0. Specimen D: Received is one formalin filled container labeled with the patient's name and designated right lower leg. The specimen consists of a shave biopsy with two pieces measuring 9d6c6pq and 9r4f4by. Jar 0. 2 1:34 PM CDT DERMATOPATHOLOGY LABORATORY Microscopic Description Specimen A. SKIN, left waistline: There are nests of cytologically bland melanocytes within the dermis that mature with depth. Specimen B. SKIN, left mid back: There are nests of cytologically bland melanocytes within the dermis that mature with depth. Specimen C. SKIN, right upper abdomen: There are nests of cytologically bland melanocytes within the dermis that mature with depth. Additional deeper sections were obtained and reviewed. Specimen D. SKIN, right lower leg: There are nests of melanocytes at the dermal-epidermal junction. There is melanin pigment in the stratum corneum. There is abundant melanin within melanophages around the superficial vascular plexus. MART-1/Melan-A immunohistochemical stain highlights the melanocytes as above. 2 1:34 PM T DERMATOPATHOLOGY LABORATORY Disclaimer An external and internal positive and negative controls are appropriate for the histochemical, immunohistochemical and immunofluorescence stain(s) in this case (if any), except where stated explicitly. The performance characteristics of the stain(s) cited in this report were developed and its performance characteristic determined by the Dermatopathology Laboratory at [facility], directed by Dr. Alvaro Xiong. These tests need not be, and therefore are not, approved by the [place] Food and Drug Administration. The tests are used for clinical purposes. Billing Codes Specimen Charges Stain Charges 10153 [id number] [id number] 1 1 1 1 25115 1 2 1:34 PM CDT DERMATOPATHOLOGY LABORATORY Embedded Images 2 1:34 PM CDT DERMATOPATHOLOGY LABORATORY Pathology/Cytology TISSUE SPECIMEN FROM SKIN / Unknown 12/29/2021 12/29/2021 2:26 PM CDT Miscellaneous samples (specimen) TISSUE SPECIMEN FROM SKIN / Unknown 12/29/2021 12/29/2021 2:26 PM CDT Miscellaneous samples (specimen) TISSUE SPECIMEN FROM SKIN / Unknown 12/29/2021 12/29/2021 2:26 PM CDT Miscellaneous samples (specimen) TISSUE SPECIMEN FROM SKIN / Unknown 12/29/2021 12/29/2021 2:35 PM CDT Martha Salter MD LAB - PATHOLOG Y/CYTOLOGY ORDERABLES DERMATOPATHOLOGY LABORATORY [facility] - Department of Dermatology [address], [address] [phone] * SUMI+C3+C4+RA+DNA+SJ+ANTICHROMATIN (12/12/2021 2:18 PM CDT) Complement C3 120 82 - 167 mg/dL [facility] INSURANCE BILL Complement C4 28 12 - 38 mg/dL [facility] INSURANCE BILL [employer] Antibody 0.5 0.0 - 0.9 AI [facility] INSURANCE BILL Lazar (SUMI) Antibody <0.2 0.0 - 0.9 AI [facility] INSURANCE BILL Rheumatoid Factor <10.0 <14.0 IU/mL [facility] INSURANCE BILL Antichromatin Antibodies <0.2 0.0 - 0.9 AI [facility] INSURANCE BILL Sjogren's Antibodies (SSA) <0.2 0.0 - 0.9 AI [facility] INSURANCE BILL Sjogren's Antibodies (SSB) <0.2 0.0 - 0.9 AI [facility] INSURANCE BILL Anti-dsDNA Quantitative <1 0 - 9 IU/mL [facility] INSURANCE BILL Comment: Negative <5 Equivocal 5 - 9 Positive >9 FASTING Blood BLOOD SPECIMEN / Unknown 12/12/2021 2:18 PM CDT 12/12/2021 Narrative Resulting Agency Comment Lab Testing performed at: [facility] [address] [facility] [phone] Luiza Mcgarry DO LAB - SEROLOGY ORD ERABLES [facility] INSURANCE BILL [address] [place] [address] * CENTROMERE B ANTIBODIES (12/12/2021 2:18 PM CDT) Centromere B Antibody <0.2 0.0 - 0.9 AI [facility] INSURANCE BILL Comment:FASTING Blood BLOOD SPECIMEN / Unknown 12/12/2021 2:18 PM CDT 12/12/2021 Narrative Resulting Agency Comment [facility]: [facility] [address] [facility] [phone] Luiza Mcgarry DO LAB - SEROLOGY ORD ERABLES Performing Organization Address [facility] Co de Phone Number [facility] [address] [place] [address] * MITOCHONDRIAL ANTIBODY SCREEN (12/12/2021 2:18 PM CDT) Mitochondrial M2 Antibody <20.0 0.0 - 20.0 Units [facility] INSURANCE BILL Comment: Negative 0.0 - 20.0 Equivocal 20.1 - 24.9 Positive >24.9 . Mitochondrial (M2) Antibodies are found in 90-96% of patients with primary biliary cirrhosis. FASTING Blood BLOOD SPECIMEN / Unknown 12/12/2021 2:18 PM CDT 12/12/2021 Narrative Resulting Agency Comment Lab Testing performed at: [facility] [address] [place] [phone] Luiza Mcgarry DO LAB - CHEMISTRY OR DERABLES Performing Organization Address [facility] de Phone Number [facility] [address] [place] [address] * JENNIFER BLOOD SCREEN W/REFLEX TITER (12/12/2021 2:18 PM CDT) JENNIFER Negative [facility] INSURANCE BILL Comment: Negative <1:80 Borderline 1:80 Positive >1:80 ICAP nomenclature: AC-0 For more information about Hep-2 cell patterns use ANApatterns.org, the official website for the International Consensus on Antinuclear Antibody (JENNIFER) Patterns (ICAP). FASTING Blood BLOOD SPECIMEN / Unknown 12/12/2021 2:18 PM CDT 12/12/2021 Narrative Resulting Agency Comment Lab Testing performed at: [facility] [address] [facility] [phone] Luiza Mcgarry DO LAB - CHEMISTRY OR DERABLES Performing Organization Address [facility] Co de Phone Number [facility] INSURANCE BILL [address] [place] [address] * CERULOPLASMIN (12/12/2021 2:18 PM CDT) Ceruloplasmin 24.2 19.0 - 39.0 mg/dL [facility] INSURANCE BILL Comment:FASTING Blood BLOOD SPECIMEN / Unknown 12/12/2021 2:18 PM CDT 12/12/2021 Narrative Resulting Agency Comment Lab Testing performed at: [facility] [address] [facility] [phone] Luiza Mcgarry DO LAB - CHEMISTRY OR DERABLES Performing Organization Address [facility] de Phone Number [facility] INSURANCE BILL [address] [place] [address] * FERRITIN (12/12/2021 2:18 PM CDT) Pathologist [facility] Ferritin 37 15 - 150 ng/mL [facility] INSURANCE BILL Comment:FASTING Blood BLOOD SPECIMEN / Unknown 12/12/2021 2:18 PM CDT 12/12/2021 Narrative Resulting Agency Comment Lab Testing performed at: [employer] [facility] [address] [facility] [phone] Luiza Mcgarry DO LAB - CHEMISTRY OR DERABLES Performing Organization Address [facility] Co de Phone Number [facility] INSURANCE BILL [address] [place] [address] * (ABNORMAL) CULTURE URINE (11/16/2021 2:00 PM CDT) Only the most recent of3 resultswithin the time period is included. Pathologist [facility] Urine Culture Routine Final report(A) [facility] INSURANCE BILL Result 1 (A) [facility] INSURANCE BILL Comment: Beta hemolytic Streptococcus, group B 50,000-100,000 colony forming units per mL Penicillin and ampicillin are drugs of choice for treatment of beta-hemolytic streptococcal infections. Susceptibility testing of penicillins and other beta-lactam agents approved by the FDA for treatment of beta-hemolytic streptococcal infections need not be performed routinely because nonsusceptible isolates are extremely rare in any beta-hemolytic streptococcus and have not been reported for Streptococcus pyogenes (group A). (CLSI) Urine URINE SPECIMEN OBTAINED BY CLEAN CATCH PROCEDURE / Unknown 11/16/2021 2:00 PM CDT 11/16/2021 Narrative Resulting Agency Comment [facility] performed [facility]: [facility] [address] [facility] [phone] Arturo Arguello MD LAB - MICROBIOLOGY O RDERABLES [facility] INSURANCE BILL [address] [place] [address] * CARDIAC EKG ORDER (11/09/2021 12:40 AM CDT) Narrative 11/09/2021 12:40 AM CDT Ordered by an unspecified provider. Scanned Document CARDIAC SERVICES ORD ERABLES * INFLAMMATORY BOWEL DISEASE PANEL (11/05/2021 6:57 AM CDT) Saccharomyces cerevisiae Antibody IgG <20.0 0.0 - 24.9 Units 11/08/2021 12:10 PM CDT [facility] Comment: Negative <20.0 Equivocal 20.1 - 24.9 Positive >or= 25.0 Saccharomyces cerevisiae Antibody IgA <20.0 0.0 - 24.9 Units 11/08/2021 12:10 PM CDT [facility] ([facility]) Comment: Negative <20.0 Equivocal 20.1 - 24.9 Positive >or= 25.0 IgA and IgG antibody testing for S. cerevisiae is useful adjunct testing for differentiating Crohn's disease and ulcerative colitis. Close to 80% of Crohn's disease patients are positive for either IgA or IgG. In ulcerative colitis, less than 15% are positive for IgG and less than 2% are positive for IgA. Fewer than 5% are positive for either IgG or IgA antibody, and no healthy controls had antibody for both. Atypical p-ANCA Titer <1:20 Neg:<1:20 titer 11/08/2021 12:10 PM CDT [facility] ([facility]) Comment: The atypical pANCA pattern has been observed in a significant percentage of patients with ulcerative colitis, primary sclerosing cholangitis and autoimmune hepatitis. ASCA+/PANCA- Suggestive of Crohn's disease ASCA-/PANCA+ Suggestive of Ulcerative colitis Blood BLOOD SPECIMEN / Unknown Lab Venipuncture / Unknown 11/05/2021 6:57 AM CDT 11/05/2021 7:00 AM CDT Narrative [facility] ([facility]) - 11/08/2021 12:10 PM CDT Performed at: 01 - [address] [id number] Director Of Engineering: Gilberto Becker MD, Phone: [phone] Performed at: 02 - [address] [id number] Director Of Engineering: Arnold Ziegler PhD, Phone: [phone] Ozzie Morin MD LAB - CHEMISTRY IVONE ROGERS Performing Organization Address City/[facility] Co de Phone Number [facility] ([facility]) [address] [place] [address] * CULTURE STOOL+ E COLI SHIGA-LIKE TOXIN (11/04/2021 3:48 PM SUBSTITUTE NURSE) Pathologist [facility] Culture No growth Salmonella, Shigella, Campylobacter, Escherichia coli O157:h7 or Yersinia ABDIFATAH 11/08/2021 6:09 AM CDT [facility] Culture Negative Escherichia coli Shiga-like toxin (NM) ABDIFATAH 11/08/2021 6:09 AM CDT [facility] Stool STOOL SPECIMEN / Unknown Collection / Unknown 11/04/2021 3:48 PM SUBSTITUTE NURSE 11/04/2021 4:16 PM SUBSTITUTE NURSE Ozzie Morin MD LAB - MICROBIOLOGY O [place] [facility] [address] [place], [place] [address], [facility] [phone] * C DIFFICILE GDH AG + TOXIN A+B (11/04/2021 3:48 PM SUBSTITUTE NURSE) GDH Antigen Negative Negative, Invalid 11/05/2021 12:05 AM [facility] C difficile Toxin A + B Negative Negative, Invalid 11/05/2021 12:05 AM [facility] Interpretation C difficile Negative for toxigenic C. difficile Negative for toxigenic C. difficile 11/05/2021 12:05 AM [facility] Stool STOOL SPECIMEN / Unknown Collection / Unknown 11/04/2021 3:48 PM SUBSTITUTE NURSE 11/04/2021 4:16 PM [facility] Ozzie Morin MD LAB - MICROBIOLOGY O RDERABLES [facility] [address] [place], [place] [address], [facility] [phone] * (ABNORMAL) URINALYSIS REFLEX TO MICROSCOPIC NO CULTURE (11/03/2021 9:09 AM [facility]) Color UA Mary(A) Straw, Yellow 11/03/2021 9:27 AM [facility] Clarity UA Clear Clear 11/03/2021 9:27 AM [facility] Glucose UA Negative Negative 11/03/2021 9:27 AM [facility] Bilirubin UA Negative Negative 11/03/2021 9:27 AM [facility] Ketone UA Negative Negative 11/03/2021 9:27 AM [facility] Specific [place] UA 1.014 1.005 - 1.030 11/03/2021 9:27 AM [facility] Blood UA 3+(A) Negative 11/03/2021 9:27 AM [facility] pH UA 9.0(H) 5.0 - 8.0 pH 11/03/2021 9:27 AM [facility] Protein UA Negative Negative 11/03/2021 9:27 AM [facility] Urobilinogen UA Negative Negative mg/dL 11/03/2021 9:27 AM [facility] Nitrite UA Positive(A) Negative 11/03/2021 9:27 AM [facility] Leukocyte UA Trace(A) Negative 11/03/2021 9:27 AM [facility] Urine Microscopy Urine microscopy to follow 11/03/2021 9:27 AM [facility] Urine URINE SPECIMEN OBTAINED BY CLEAN CATCH PROCEDURE / Unknown Collection / Unknown 11/03/2021 9:09 AM SUBSTITUTE NURSE 11/03/2021 9:17 AM SUBSTITUTE NURSE Narrative [facility] - 11/03/2021 9:27 AM SUBSTITUTE NURSE Tristan Urias MD LAB - URINALYSIS ORD ERABLES [facility] [address] [address] * (ABNORMAL) URINE MICROSCOPIC ONLY (11/03/2021 9:09 AM SUBSTITUTE NURSE) RBC UA 21-50(A) None Seen, 0-2, 3-5 # /hpf 11/03/2021 9:28 AM SUBSTITUTE NURSE [facility] WBC UA 6-10(A) None Seen, 0-5 # /hpf 11/03/2021 9:28 AM SUBSTITUTE NURSE [facility] Bacteria UA Trace(A) None Seen 11/03/2021 9:28 AM SUBSTITUTE NURSE [facility] Squamous Epithelial Cells 0-2 None Seen, 0-2, 3-5 /hpf 11/03/2021 9:28 AM SUBSTITUTE NURSE [facility] Urine URINE SPECIMEN OBTAINED BY CLEAN CATCH PROCEDURE / Unknown Collection / Unknown 11/03/2021 9:09 AM SUBSTITUTE NURSE 11/03/2021 9:17 AM SUBSTITUTE NURSE Narrative [facility] - 11/03/2021 9:28 AM SUBSTITUTE NURSE Tristan Urias MD LAB - URINALYSIS ORD ERABLES Performing Organization Address City/[facility]/ZIP Co de Phone Number [facility] [address] [place] [address] * CT ABDOMEN AND PELVIS WITH IV CONTRAST - Acute Abdomen (11/03/2021 7:19 AM SUBSTITUTE NURSE) Anatomical Region Laterality Modality Abdomen, Pelvis Computed Tomogra phy 11/03/2021 7:33 AM SUBSTITUTE NURSE Impressions 11/03/2021 7:37 AM SUBSTITUTE NURSE Mild hepatic steatosis Segment of transverse colon which demonstrates wall thickening and inflammation concerning for regional colitis Significant amount retained stool present throughout the colon Postoperative changes consistent with the given history of recent hysterectomy with 2.3 cm right ovarian cyst *Reading Radiologist: Marcel Diaz on 11/03/2021 at 7:37 AM Narrative 11/03/2021 7:37 AM SUBSTITUTE NURSE EXAM: CT ABDOMEN AND PELVIS WITH IV CONTRAST INDICATION: Syncope and collapse abdominal pain, recent hysterectomy COMPARISON: none available TECHNIQUE: Helically acquired contiguous axial sections through the abdomen and pelvis performed after intravenous administration of approximately 80 mL of Isoview-370 contrast. FINDINGS: Lung bases are clear. There is mild hepatic steatosis. There is no intrahepatic mass or biliary dilation. The gallbladder, pancreas, spleen, kidneys and adrenals are unremarkable. There is no bowel obstruction, free air or free fluid. There is a large amount retained stool present throughout the colon. In addition, there is a segment of transverse colon which demonstrates wall thickening/inflammation in a pattern concerning for focal colitis. There is no focal fluid collection to indicate abscess or hematoma. The uterus is surgically absent. There are a few tiny gas bubbles at the junction of the cervix and vagina, likely relating to the acute nature of the surgery. Significant free fluid is not identified in the pelvis. There is a 2.3 cm right ovarian cyst. Procedure Note Marcel Diaz MD - 11/03/2021 EXAM: CT ABDOMEN AND PELVIS WITH IV CONTRAST INDICATION: Syncope and collapse abdominal pain, recent hysterectomy COMPARISON: none available TECHNIQUE: Helically acquired contiguous axial sections through the abdomen and pelvis performed after intravenous administration of approximately 80 mL of Isoview-370 contrast. FINDINGS: Lung bases are clear. There is mild hepatic steatosis. There is no intrahepatic mass or biliary dilation. The gallbladder, pancreas, spleen, kidneys and adrenals are unremarkable. There is no bowel obstruction, free air or free fluid. There is a large amount retained stool present throughout the colon. In addition, there is a segment of transverse colon which demonstrates wall thickening/inflammation in a pattern concerning for focal colitis. There is no focal fluid collection to indicate abscess or hematoma. The uterus is surgically absent. There are a few tiny gas bubbles at the junction of the cervix and vagina, likely relating to the acute nature of the surgery. Significant free fluid is not identified in the pelvis. There is a 2.3 cm right ovarian cyst. IMPRESSION Mild hepatic steatosis Segment of transverse colon which demonstrates wall thickening and inflammation concerning for regional colitis Significant amount retained stool present throughout the colon Postoperative changes consistent with the given history of recent hysterectomy with 2.3 cm right ovarian cyst *Reading Radiologist: Marcel Diaz on 11/03/2021 at 7:37 AM Tristan Urias MD CT ORDERABLES * (ABNORMAL) CREATININE - POCT INTERFACED (11/03/2021 7:17 AM SUBSTITUTE NURSE) Only the most recent of2 resultswithin the time period is included. Creatinine POCT 0.55(L) 0.70 - 1.20 mg/dL 11/03/2021 7:22 AM SUBSTITUTE NURSE [facility] Blood BLOOD SPECIMEN / Unknown 11/03/2021 7:17 AM SUBSTITUTE NURSE 11/03/2021 7:22 AM SUBSTITUTE NURSE Tristan Urias MD LAB - POINT OF CARE ORDERABLES [facility] [address] [address] * XR CHEST 1VW PORTABLE (11/03/2021 7:04 AM SUBSTITUTE NURSE) Anatomical Region Laterality Modality Chest Radiographic Giovana ging 11/03/2021 8:08 AM SUBSTITUTE NURSE Narrative 11/03/2021 8:08 AM SUBSTITUTE NURSE Portable AP Chest x-ray INDICATION: Syncope and collapse, shortness of breath COMPARISON: None FINDINGS: There is no focal infiltrate or consolidation. Heart size is normal. No evidence of pneumothorax or pleural effusion. A mass is not detected. *Reading Radiologist: Marcel Diaz on 11/03/2021 at 8:08 AM Procedure Note Marcel Diaz MD - 11/03/2021 Portable AP Chest x-ray INDICATION: Syncope and collapse, shortness of breath COMPARISON: None FINDINGS: There is no focal infiltrate or consolidation. Heart size is normal. No evidence of pneumothorax or pleural effusion. A mass is not detected. *Reading Radiologist: Marcel Diaz on 11/03/2021 at 8:08 AM Tristan Urias MD DIAGNOSTIC IMAGING O RDERABLES * TROPONIN I (11/03/2021 6:49 AM SUBSTITUTE NURSE) Pathologist [facility] Troponin I <0.010 <0.038 ng/mL 11/03/2021 7:17 AM SUBSTITUTE NURSE [facility] Blood BLOOD SPECIMEN / Unknown Venipuncture / Unknown 11/03/2021 6:49 AM SUBSTITUTE NURSE 11/03/2021 6:56 AM SUBSTITUTE NURSE Tristan Urias MD LAB - CHEMISTRY IVONE ROGERS [facility] [address] [address] * EKG 12-LEAD (11/03/2021 6:27 AM SUBSTITUTE NURSE) Only the most recent of2 resultswithin the time period is included. Ventricular Rate 79 BPM [facility] Atrial Rate 79 BPM [facility] P-R Interval 122 ms [facility] QRS Duration ms 78 ms [facility] Q-T Interval ms 398 ms [facility] QTC Calculation (Bezet) 456 ms [facility] Calculated P [place] 69 degrees [facility] MUSE Calculated R [place] 76 degrees [facility] MUSE Calculated T [place] 89 degrees [facility] Interpretation EKG Sinus rhythm with Premature ventricular complexes Otherwise normal ECG No previous ECGs available Confirmed by Chalo Dalal ([id number]) on 11/03/2021 8:06:05 AM [facility] 11/03/2021 6:27 AM SUBSTITUTE NURSE 11/03/2021 8:06 AM SUBSTITUTE NURSE Tristan Urias MD ECG ORDERABLES Performing Organization Address City/[facility]/ZIP Co de Phone Number [facility] * (ABNORMAL) HGB HCT PANEL (11/02/2021 5:40 AM SUBSTITUTE NURSE) Hemoglobin 11.7(L) 12.0 - 15.6 gm/dL 11/02/2021 5:46 AM SUBSTITUTE NURSE [facility] Hematocrit 37.0 35.9 - 45.5 % 11/02/2021 5:46 AM SUBSTITUTE NURSE [facility] Blood BLOOD SPECIMEN / Unknown Lab Venipuncture / Unknown 11/02/2021 5:40 AM SUBSTITUTE NURSE 11/02/2021 5:40 AM SUBSTITUTE NURSE Arturo Arguello MD LAB - HEMATOLOGY ORD ERABLES [facility] [address] [address] * PATHOLOGY TISSUE EXAM (STL) (11/01/2021 8:18 AM SUBSTITUTE NURSE) Case Report Surgical Pathology Report Case: [id number] Authorizing Provider: Arturo Arguello MD Collected: 11/01/2021 08:18 AM Ordering Location: [facility] Received: 11/01/2021 01:15 PM Pathologist: Giuliano Scott MD Specimen: Uterus w Cervix, UTERUS, CERVIX AND BILATERAL SALPINGECTOMY 11/02/2021 3:53 PM SUBSTITUTE NURSE [facility] Final Diagnosis A. Uterus with cervix and bilateral fallopian tubes, total hysterectomy with salpingectomy: -- Cervix with squamous metaplasia, and chronic and acute cervicitis. -- Weakly proliferative endometrium. -- Myometrium with prominent adenomyosis. -- Uterine serosa with focal adhesions and otherwise unremarkable histopathology. -- Fallopian tubes with paratubal cysts and vascular congestion. SD/scs 11/02/2021 3:53 PM SUBSTITUTE NURSE [facility] Clinical History Vaginal prolapse. 11/02/2021 3:53 PM SUBSTITUTE NURSE [facility] Gross Description Specimen labeled with patient's name Anabell Louie and labeled uterus with cervix and bilateral fallopian tubes. The uterus with cervix weighs 132 gm and measures 10.5 x 5 x 4 cm. The cervix measures 4 cm in diameter and the lumen is gapping. The ectocervix is pelletier-white, shiny without any focal lesions or masses. The serosal surface is pink, shiny and unremarkable. The endocervical canal is pink-pelletier glistening with no focal lesions or masses noted. The endometrial cavity is triangular in configuration and measures 2 x 3 cm in greatest dimension. The surface is pink, shiny and the mucosa measures 1 mm or less. The myometrium is pelletier-pink, measures 1.5 cm in thickness and has multiple somewhat bumpy lesions suggestive of adenomyosis. Mural nodules such as leiomyomata are not identified. In addition, there are two loose unattached fallopian tubes, both of which are approximately the same size and have the same unremarkable appearance. They each measure approximately 4.5 cm in length with a mid diameter of 5 mm, both have bushy ends and shiny serosal surfaces free of papillary excrescences. On cut-section they have a stellate lumen. Sections are taken as follows: A1 - anterior endomyometrium A2-A3 - anterior cervix A4 - posterior endomyometrium A5 - posterior cervix A6-A7 - fimbria and cross-sections of fallopian tubes GM/lk 11/02/2021 3:53 PM [facility] Microscopic Description There is no evidence of atypia/dysplasia, or malignancy. SD/scs 11/02/2021 3:53 PM [facility] Disclaimer All histochemical and/or immunohistochemical results are interpreted with controls that demonstrate appropriate staining reactions before reporting results. Note on use of immunocytochemistry reagents: This test was developed and its performance characteristic determined by [facility], Department of Laboratory Medicine. It has not been cleared or approved by the U.S. Food and Drug Administration (FDA). The FDA has determined that such clearance or approval is not necessary. The test is used for clinical purpose. It should not be regarded as investigational or for research. This laboratory is certified to perform high complexity testing. The performance characteristics of the IHC/MYRA assays have been validated on formalin-fixed paraffin embedded tissues only. The assays have not been validated on decalcified tissues. Results should be interpreted with caution. 11/02/2021 3:53 PM [facility] Embedded Images 11/02/2021 3:53 PM [facility] Pathology/Cytolo gy SPECIMEN FROM UTERINE CERVIX OBTAINED BY HYSTERECTOMY / Unknown 11/01/2021 8:18 AM SUBSTITUTE NURSE 11/01/2021 1:15 PM SUBSTITUTE NURSE Comment:Pre-op diagnosis: N39.3 Arturo Arguello MD LAB - PATHOLOGY/CYTO LOGY ORDERABLES [facility] [address] [place] [address] * HCG URINE QUALITATIVE - POCT (IP) INTERFACED (11/01/2021 6:07 AM SUBSTITUTE NURSE) Only the most recent of2 resultswithin the time period is included. HCG Qual Urine Negative Negative 11/01/2021 6:13 AM SUBSTITUTE NURSE [facility] Urine URINE / Unknown 11/01/2021 6 :07 AM SUBSTITUTE NURSE 11/01/2021 6:13 AM SUBSTITUTE NURSE Arturo Arguello MD LAB - POINT OF CARE ORDERABLES Performing Organization Address [facility] de Phone Number [facility] [address] [place] [address] * HCG URINE QUAL POCT NOTIFICATION (11/01/2021 5:52 AM SUBSTITUTE NURSE) Only the most recent of2 resultswithin the time period is included. Comment Notification Label Only - See Separate Report 11/01/2021 7:00 AM SUBSTITUTE NURSE [facility] Urine URINE / Unknown 11/01/2021 5 :52 AM SUBSTITUTE NURSE 11/01/2021 5:53 AM SUBSTITUTE NURSE Arturo Arguello MD LAB - URINALYSIS ORD ERABLES Performing Organization Address [facility] de Phone Number [facility] [address] [place] [address] * MRI ENTEROGRAPHY (10/07/2021 4:32 PM SUBSTITUTE NURSE) Anatomical Region Laterality Modality Abdomen Magnetic Resonan ce, Magnetic Resonance 10/09/2021 8:20 AM SUBSTITUTE NURSE Impressions 10/09/2021 8:37 AM SUBSTITUTE NURSE IMPRESSION: 1.No small or large bowel pathology. 2.Fibrocystic breasts. This report was electronically signed by GRETCHEN NORMAN M.D. on 10/09/2021 8:37 AM . Narrative 10/09/2021 8:37 AM SUBSTITUTE NURSE EXAMINATION: Magnetic resonance imaging (MRI) abdomen and pelvis without and with contrast HISTORY: R14.0: Bloating K52.9: Colitis R19.4: Altered bowel habits K92.1: Blood in stool TECHNIQUE: MRI of the abdomen and pelvis was performed prior to and following the uneventful administration of 14 mL Multihance intravenous gadolinium contrast according to an enterography protocol. The patient drank 1350 mL of oral contrast prior to the study. COMPARISON: None FINDINGS: The visible lung bases are clear. Multiple cysts are noted in both breasts. Distension of the small bowel is satisfactory with intraluminal fluid to the level of the distal bowel. The colon is full of stool. The small and large bowel are normal in caliber without evidence of obstruction. No enhancing lesion of the bowel is identified. There is no bowel wall thickening or abnormal enhancement. The terminal ileum appears normal. No bowel fistula, stricture, or abscess is seen. There is no evidence of hepatic steatosis. Two tiny cysts are noted in the hepatic dome (IR: series 9, image 2). No enhancing hepatic lesions are seen. The intrahepatic and extrahepatic bile ducts are not dilated. The gallbladder is normal without evidence of wall thickening, pericholecystic fluid, or gallstones. The pancreas has normal signal intensity without evidence of peripancreatic fluid. The spleen, adrenal glands, and kidneys are normal. No free intraperitoneal fluid is identified. The bladder is distended with fluid and appears normal. No free pelvic fluid is identified. Procedure Note Gretchen Norman MD - 10/09/2021 EXAMINATION: Magnetic resonance imaging (MRI) abdomen and pelvis without and with contrast HISTORY: R14.0: Bloating K52.9: Colitis R19.4: Altered bowel habits K92.1: Blood in stool TECHNIQUE: MRI of the abdomen and pelvis was performed prior to and following the uneventful administration of 14 mL Multihance intravenous gadolinium contrast according to an enterography protocol. The patient drank 1350 mL of oral contrast prior to the study. COMPARISON: None FINDINGS: The visible lung bases are clear. Multiple cysts are noted in both breasts. Distension of the small bowel is satisfactory with intraluminal fluid to the level of the distal bowel. The colon is full of stool. The small and large bowel are normal in caliber without evidence of obstruction. No enhancing lesion of the bowel is identified. There is no bowel wall thickening or abnormal enhancement. The terminal ileum appears normal.No bowel fistula, stricture, or abscess is seen. There is no evidence of hepatic steatosis. Two tiny cysts are noted inthe hepatic dome (IR: series 9, image 2). No enhancing hepatic lesions are seen. The intrahepatic and extrahepatic bile ducts are not dilated. The gallbladder is normal without evidence of wall thickening,pericholecystic fluid, or gallstones. The pancreas has normal signal intensity without evidence of peripancreatic fluid. The spleen, adrenal glands, andkidneys are normal. No free intraperitoneal fluid is identified. The bladder is distended with fluid and appears normal. No free pelvic fluid is identified. IMPRESSION: 1.No small or large bowel pathology. 2.Fibrocystic breasts. This report was electronically signed by GRETCHEN NORMAN M.D. on10/09/2021 8:37 AM . Sarita Mckeon PA-C MR ORDERABLES * MAMMO BILAT SCREENING W ADIEL (10/03/2021 11:57 AM SUBSTITUTE NURSE) Anatomical Region Laterality Modality Breast Bilateral Mammography 10/04/2021 12:4 9 PM SUBSTITUTE NURSE Impressions 10/04/2021 12:51 PM SUBSTITUTE NURSE No mammographic evidence of malignancy. Recommendation: Resume routine yearly mammography schedule for women over age 40 or return sooner if clinically indicated. BI-RADS CATEGORY 1: NEGATIVE. *Reading Radiologist: Stephie Carranza on 10/04/2021 at 12:51 PM Narrative 10/04/2021 12:51 PM SUBSTITUTE NURSE Bilateral mammography. Most recent comparison: There are no prior studies for comparison. History: Screening mammogram. Technique: Bilateral Breasts. Mammography views included: CC and MLO. Images interpreted with CAD. Following current [facility] protocol, 3D mammographic tomosynthesis images were obtained and reviewed on a dedicated viewing station. FINDINGS: Breast composition: Heterogeneously dense which may obscure small masses. No suspicious calcifications, masses or areas of architectural distortion. Luiza Mcgarry DO MAMMO ORDERABLES * CALPROTECTIN FECAL (09/06/2021 2:35 PM SUBSTITUTE NURSE) Calprotectin Fecal 10 mcg/g [facility] Comment: Reference Range: <50 Normal 50-120 Borderline >120 Elevated Calprotectin in Crohn's disease and ulcerative colitis can be five to several thousand times above the reference population (50 mcg/g or less). Levels are usually 50 mcg/g or less in healthy patients and with irritable bowel syndrome. Repeat testing in 4-6 weeks is suggested for borderline values. REPORT COMMENT: SPLIT 08/30/2021 FROM [id number]/HAD INS CARD ON PHONE FASTING:NO Test Performed at: [facility] [place] [address] [place] [address] MAGUI VILLANUEVA MD,PHD,ALEXX Stool STOOL SPECIMEN / Unknown 09/06/2021 2:35 PM SUBSTITUTE NURSE 09/07/2021 4:36 AM SUBSTITUTE NURSE Sarita Mckeon PA-C LAB - BODY FLUID ORDERABLES [employer] [address] [place] [address] * (ABNORMAL) LIPID PROFILE REFLEX LDL DIRECT (09/05/2021 3:21 PM SUBSTITUTE NURSE) Cholesterol 271(H) <200 mg/dL [facility] INSURANCE BILL Triglycerides 109 <150 mg/dL [facility] INSURANCE BILL HDL Cholesterol 80 >40 mg/dL [facility] INSURANCE BILL VLDL Calculated 22 <=30 mg/dL [facility] INSURANCE BILL LDL Calculated 169(H) <130 mg/dL [facility] INSURANCE BILL Cholesterol/HDL Ratio 3.4 <4.5 [facility] INSURANCE BILL LDL/HDL Ratio 2.1 <5.0 [facility] INSURANCE BILL Blood BLOOD SPECIMEN / Unknown 09/05/2021 3:21 PM SUBSTITUTE NURSE 09/05/2021 Narrative Resulting Agency Comment Lab Testing performed at: [facility] [address] [facility] [id number] Luiza Mcgarry DO LAB - CHEMISTRY OR DERABLES [facility] INSURANCE BILL [address] [place] [address] * TSH HI LOW REFLEX FREE T4 (09/05/2021 3:21 PM SUBSTITUTE NURSE) TSH 3.060 0.350 - 4.940 uIU/mL [facility] INSURANCE BILL Blood BLOOD SPECIMEN / Unknown 09/05/2021 3:21 PM SUBSTITUTE NURSE 09/05/2021 Narrative Resulting Agency Comment Lab Testing performed at: [address] [id number] Luiza Mcgarry DO LAB - CHEMISTRY OR DERABLES [facility] INSURANCE BILL [address] [place] [address] * PROLACTIN (09/05/2021 3:21 PM SUBSTITUTE NURSE) Prolactin 25.97 5.18 - 26.53 ng/mL [facility] INSURANCE BILL Blood BLOOD SPECIMEN / Unknown 09/05/2021 3:21 PM SUBSTITUTE NURSE 09/05/2021 Narrative Resulting Agency Comment Lab Testing performed at: [address] [id number] Luiza Mcgarry DO LAB - CHEMISTRY OR DERABLES Performing Organization Address City/[facility]/ZIP Co de Phone Number [facility] INSURANCE BILL [address] [place] [address] * HEMOGLOBIN A1C (09/05/2021 3:21 PM SUBSTITUTE NURSE) Only the most recent of2 resultswithin the time period is included. Pathologist [facility] Hemoglobin A1c 5.0 4.2 - 5.6 % [facility] INSURANCE BILL Comment: AVERAGE GLUCOSE MG/DL BLOOD 97 mg/dL The following cutoff levels are recommended by [place]. A1c > 6.5% : considered as diabetes if two separate tests > 6.5% or in an appropriate clinical setting. A1c 5.7% - 6.4% : considered as prediabetes (suggest increa sed risk for diabetes and cardiovascular disease) Control target level: Should be individualized. < 7 for g eneral (non-) , < 8% less stringent goal, < 6.5 more stringent g Hemoglobin A1c measurements are used as an aid in the diagno sis of diabetic mellitus, as an aid to identify patients who may be at the disease. This method may yield falsely low results when fe romaine hemoglobin (HbF) exceeds 5% in the specimen. Blood BLOOD SPECIMEN / Unknown 09/05/2021 3:21 PM SUBSTITUTE NURSE 09/05/2021 Narrative Resulting Agency Comment Lab Testing performed at: [address] [id number] Luiza Mcgarry DO LAB - CHEMISTRY OR DERABLES [facility] INSURANCE BILL [address] [place] [address] * VITAMIN D 25-HYDROXY (09/05/2021 3:21 PM SUBSTITUTE NURSE) Vitamin D, 25 Hydroxy 36.0 30 - 100 ng/mL [facility] INSURANCE BILL Comment: Vitamin D Status: Deficiency <20 ng/mL Insufficiency 20-30 ng/mL Sufficiency 30-100 ng/mL Toxicity >100 ng/mL Blood BLOOD SPECIMEN / Unknown 09/05/2021 3:21 PM SUBSTITUTE NURSE 09/05/2021 Narrative Resulting Agency Comment Lab Testing performed at: [address] [id number] Luiza Mcgarry DO LAB - CHEMISTRY OR DERABLES [facility] INSURANCE BILL [address] [place] [address] * FSH + LH PANEL (09/05/2021 3:21 PM SUBSTITUTE NURSE) LH 40.6 mIU/mL [facility] INSURANCE BILL Comment: LH Reference Range Normal Menstruating Females Follicular Phase 1.80 - 11.78 mIU /mL Mid-Cycle Phase 7.59 - 89.08 mIU /mL Luteal Phase 0.56 - 14.00 mIU /mL Postmenopausal Females without HRT 5.16-61.99 mIU/m L Males 0.57 - 12.07 mIU /mL FSH Reference Range Normal Menstruating Females Follicular Phase 3.03 - 8.08 mIU /mL Mid-Cycles Phase 2.55 - 16.69 mIU /mL Luteal Phase 1.38 - 5.47 mIU /mL Post Menopausal Females 26.72 - 133.41 mIU /mL Males 0.95 - 11.95 mIU/ mL FSH 51.88 mIU/mL [facility] INSURANCE BILL Blood BLOOD SPECIMEN / Unknown 09/05/2021 3:21 PM SUBSTITUTE NURSE 09/05/2021 Narrative Resulting Agency Comment Lab Testing performed at: [facility] [address] [facility] [phone] Luizabjorn Mcgarry DO LAB - CHEMISTRY OR DERABLES [facility] INSURANCE BILL [address] [place] [address] * PATHOLOGY TISSUE (09/04/2021 12:52 PM SUBSTITUTE NURSE) Case Report Surgical Pathology Report Case: [id number] Authorizing Provider: Rossana Mcdonald MD Collected: 09/04/2021 12:52 PM Ordering Location: [facility] Received: 09/04/2021 01:53 PM Pathologist: Michelle Corona MD Specimens: A) - Duodenum, random duodenal bx- R/O celiac B) - Gastric, random gastric bx- R/O H pylori C) - Esophagus, distal esophageal bx- R/O barretts D) - Esophagus, proximal esophageal bx- R/O H pylori 09/05/2021 1:53 PM SUBSTITUTE NURSE [facility] Final Diagnosis Small intestine, random duodenal, biopsy (A): - Incidental focal heterotopic gastric mucosa - Intact villous and crypt architecture without increased intraepithelial lymphocytes Stomach, random, biopsy (B): - No histopathologic abnormality - No active inflammation or H. pylori organisms (H&E examination) Esophagus, distal, biopsy (C): - Squamocolumnar mucosa with mild acute and chronic inflammation - No intestinal metaplasia - No increase in intraepithelial eosinophils Esophagus, proximal, biopsy (D): - No histopathologic abnormality - No increase in intraepithelial eosinophils 09/05/2021 1:53 PM SUBSTITUTE NURSE [facility] Microscopic Description and Comment Sections of the random duodenal biopsy show several fragments of tissue, most of which are consistent with random duodenal biopsies with no histopathologic abnormality. One fragment has oxyntic type glands and foveolar epithelium present, consistent with incidental heterotopic gastric mucosa. 09/05/2021 1:53 PM SUBSTITUTE NURSE [facility] Clinical History The patient is a 45-year-old woman with heartburn, dyspepsia. Operative procedure/findings: EGD - normal duodenum, biopsied; patchy mildly erythematous mucosa in fundus/body/antrum, biopsied; two tongues of salmon-colored mucosa from 37 to 40 cm, biopsied; mucosal changes including ringed esophagus in lower third of esophagus, biopsies were obtained from the proximal and distal esophagus for histology of suspected eosinophilic esophagitis. 09/05/2021 1:[address] [facility] Gross Description The requisition and specimen(s) are identified with the patient's name Anabell Louie. Received in formalin, specimen A , are 5 pink-kim tissues, 0.1-0.3 cm in greatest dimension and 0.8 x 0.3 x 0.2 cm in aggregate, submitted in toto in cassette A1. Received in formalin, specimen B , are 3 pink-kim tissues, 0.2-0.5 cm in greatest dimension and 0.9 x 0.3 x 0.2 cm in aggregate, submitted in toto in cassette B1. Received in formalin, specimen C , are 3 pink-kim tissues, 0.1-0.3 cm in greatest dimension and 0.8 x 0.2 x 0.2 cm in aggregate, submitted in toto in cassette C1. Received in formalin, specimen D ,. Are 5 bright white tissues, 0.1-0.3 cm in greatest dimension and 1.3 x 0.2 x 0.2 cm in aggregate, submitted in toto in cassette D1. DF 09/05/2021 1:[address] [facility] Disclaimer The performance characteristics of all immunohistochemical and indirect immunofluorescence stains (if any) cited in this report were determined by the Histopathology Laboratory of [facility]. Some of these tests were developed by our own laboratory and have not been cleared or approved by the US Food and Drug Administration. The FDA does not require this test to go through premarket FDA review. These tests are used for clinical purposes. They should not be regarded as investigational or for research. This laboratory is certified under the Clinical Laboratory Improvement Amendments (CLIA) as qualified to perform high complexity clinical laboratory testing. This case has been personally reviewed and interpreted by the attending (teaching) pathologist. 09/05/2021 1:[address] [facility] Embedded Images 09/05/2021 1:53 PM SUBSTITUTE NURSE [place] [facility] Biopsy, NOS PART OF DUODENUM / Unknown 09/04/2021 12:52 PM SUBSTITUTE NURSE 09/04/2021 1:53 PM SUBSTITUTE NURSE Comment:Pre-op diagnosis: K59.09 Other constipation R14.0 Bloating R10.13 Epigastric pain Biopsy, NOS GASTRIC CONTENTS SPECIMEN / Unknown 09/04/2021 12:52 PM SUBSTITUTE NURSE 09/04/2021 1:53 PM SUBSTITUTE NURSE Comment:Pre-op diagnosis: K59.09 Other constipation R14.0 Bloating R10.13 Epigastric pain Biopsy, NOS REGION OF ESOPHAGUS / Unknown 09/04/2021 12:59 PM SUBSTITUTE NURSE 09/04/2021 1:53 PM SUBSTITUTE NURSE Comment:Pre-op diagnosis: K59.09 Other constipation R14.0 Bloating R10.13 Epigastric pain Biopsy, NOS REGION OF ESOPHAGUS / Unknown 09/04/2021 1:02 PM SUBSTITUTE NURSE 09/04/2021 1:53 PM SUBSTITUTE NURSE Comment:Pre-op diagnosis: K59.09 Other constipation R14.0 Bloating R10.13 Epigastric pain Rossana Mcdonald MD LAB - PATHOLOGY/CY HAM ORDERABLES Performing Organization Address City/State/[facility] Co de Phone Number [facility] [address] [phone] * EGD (09/04/2021 12:25 PM SUBSTITUTE NURSE) Report Endoscopy POC Endoscopy Department Report __ _ Patient Name: Anabell Louie Procedure Date: 09/04/2021 12:25 PM Date of : 1975 Classification: Outpatient Gender: Female Ethnicity: Not or Race: White __ _ Providers: Rossana Mcdonald MD Referring MD: Adrianna Farrell (Referring MD) Procedure: Upper GI endoscopy Indications: Heartburn, Dyspepsia Medications: Monitored Anesthesia Care Description of Procedure: Pre-Anesthesia Assessment: - Prior to the procedure, a History and Physical was performed, and patient medications and allergies were reviewed. The patient's tolerance of previous anesthesia was also reviewed. The risks and benefits of the procedure and the sedation options and risks were discussed with the patient. All questions were answered, and informed consent was obtained. Prior Anticoagulants: The patient has taken no previous anticoagulant or antiplatelet agents. ASA Grade Assessment: II - A patient with mild systemic disease. After reviewing the risks and benefits, the patient was deemed in satisfactory condition to undergo the procedure. After obtaining informed consent, the endoscope was passed under direct vision. Throughout the procedure, the patient's blood pressure, pulse, and oxygen saturations were monitored continuously. The GIF-H190 was introduced through the mouth, and advanced to the third part of duodenum. The upper GI endoscopy was accomplished without difficulty. The patient tolerated the procedure well. Findings: Esophagogastric landmarks were identified: the Z-line was found at 37 cm, the gastroesophageal junction was found at 37 cm and the site of hiatal narrowing was found at 40 cm from the incisors. LA Grade B (one or more mucosal breaks greater than 5 mm, not extending between the tops of two mucosal folds) esophagitis with no bleeding was found 37 cm from the incisors. Two tongues of salmon-colored mucosa were present from 37 to 40 cm. No other visible abnormalities were present. The maximum longitudinal extent of these esophageal mucosal changes was 3 cm in length. Biopsies were taken with a cold forceps for histology. Estimated blood loss was minimal. Sliding hiatal hernia noted with retching Mucosal changes including ringed esophagus were found in the lower third of the esophagus. Biopsies were obtained from the proximal and distal esophagus with cold forceps for histology of suspected eosinophilic esophagitis. Estimated blood loss was minimal. Patchy mildly erythematous mucosa without bleeding was found in the gastric fundus, in the gastric body and in the gastric antrum. Biopsies were taken with a cold forceps for histology. Estimated blood loss was minimal. Extrinsic compression noted in the antrun The cardia and gastric fundus were normal on retroflexion. The first portion of the duodenum and second portion of the duodenum were normal. Biopsies were taken with a cold forceps for histology. No fluids for aspirate. Estimated Blood Loss: Estimated blood loss was minimal. Complications: No immediate complications. Impression: - Esophagogastric landmarks identified. - LA Grade B esophagitis. - Blanchard-colored mucosa suspicious for Quezada's esophagus. Biopsied. - Esophageal mucosal changes. Biopsied. - Erythematous mucosa in the gastric fundus, gastric body and antrum. Biopsied. - Extrinsic compression in the antrum - Normal first portion of the duodenum and second portion of the duodenum. Biopsied. Recommendation: - Patient has a contact number available for emergencies. The signs and symptoms of potential delayed complications were discussed with the patient. Return to normal activities tomorrow. Written discharge instructions were provided to the patient. - Discharge patient to home (with escort). - Resume previous diet. - Continue pantoprazole 40 mg oral daily 3 minutes before meals - [facility] Attending Participation: I personally performed the entire procedure. Procedure Code(s): --- Professional --- 85375, Esophagogastroduode noscopy, flexible, transoral; with biopsy, single or multiple Diagnosis Code(s): --- Professional --- K22.8, Other specified diseases of esophagus K20.9, Esophagitis, unspecified K31.89, Other diseases of stomach and duodenum R12, Heartburn R10.13, Epigastric pain CPT copyright 2019 [employer]. All rights reserved. The codes documented in this report are preliminary and upon industrial diamond polisher review may be revised to meet current compliance requirements. ___ Rossana Mcdonald MD 09/04/2021 2:03:53 PM Note Initiated On: 09/04/2021 12:25 PM Number of Addenda: [id number] [place] [address] PROVATION 09/04/2021 12:2 5 PM SUBSTITUTE NURSE Rossana Mcdonald MD GI PROCEDURE ORDER JULISSA [facility] A[facility]IDA[facility] * URINALYSIS AUTO - POINT OF CARE (08/31/2021 11:44 AM SUBSTITUTE NURSE) Clarity UA POCT CLEAR [facility] Color UA POCT STRAW [facility] Leukocyte UA NEG Negative [facility] Nitrite UA POCT NEG Negative [facility] Urobilinogen UA 0.1 0.1 - 1.0 [facility] Protein UA POCT NEG Negative [facility] pH UA 8.0 5.0 - 8.0 pH units [facility] Blood UA NEG Negative [facility] Specific [place] UA POCT 1.010 1.002 - 1.030 [facility] Ketone UA NEG Negative [facility] Bilirubin UA POCT NEG Negative [facility] Glucose UA NEG Negative [facility] Urine URINE / Unknown 08/31/2021 1 1:44 AM SUBSTITUTE NURSE Arturo Arguello MD LAB - POINT OF CARE ORDERABLES Performing Organization Address [facility] Co de Phone Number [facility] [address], [place] [address] [phone] * TSH (08/30/2021 1:32 PM SUBSTITUTE NURSE) TSH 2.69 mIU/L [facility] Comment: Reference Range > or = 20 Years 0.40-4.50 Ranges First trimester 0.26-2.66 Second trimester 0.55-2.73 Third trimester 0.43-2.91 REPORT COMMENT: NO DRAW FEE 2ND ORDER FASTING:NO Test Performed at: [facility] [address] [place] [address] CASEY LUNDBERG DO,MPH Blood BLOOD SPECIMEN / Unknown 08/30/2021 1:32 PM SUBSTITUTE NURSE 08/30/2021 1:32 PM SUBSTITUTE NURSE Sarita Mckeon PA-C LAB - CHEMISTRY O RDERABLES Performing Organization Address [facility] de Phone Number [facility] [address] [place] [address] * T4 FREE (08/30/2021 1:32 PM SUBSTITUTE NURSE) Pathologist [facility] T4 Free 1.0 0.8 - 1.8 ng/dL [facility] Comment: Test Performed at: [facility] [place] [address] [place] [address] CASEY LUNDBERG DO,MPH Blood BLOOD SPECIMEN / Unknown 08/30/2021 1:32 PM SUBSTITUTE NURSE 08/30/2021 1:32 PM SUBSTITUTE NURSE Sarita Mckeon PA-C LAB - CHEMISTRY O RDERABLES Performing Organization Address [facility] [address] * TISSUE TRANSGLUTAMINASE AB IGA (08/30/2021 1:29 PM SUBSTITUTE NURSE) [facility] TTG Antibody IgA <1.0 U/mL [facility] Comment: Value Interpretation ----- <15.0 Antibody not detected > or = 15.0 Antibody detected Test Performed at: [facility] [address] [address] LEANNA HURLEY MD Blood BLOOD SPECIMEN / Unknown 08/30/2021 1:29 PM SUBSTITUTE NURSE 08/30/2021 1:29 PM SUBSTITUTE NURSE Sarita Mckeon PA-C LAB - SEROLOGY OR DERABLES Performing Organization Address [facility] [place] [address] * C-REACTIVE PROTEIN (08/30/2021 1:29 PM SUBSTITUTE NURSE) [facility] C-Reactive Protein 1.8 <8.0 mg/L [facility] Comment: REPORT COMMENT: VARIFIED ALL INFO FASTING:NO COLLECTION KIT GIVEN TO PATIENT. PATIENT ADVISED Test Performed at: [employer] [place] [address] CASEY LUNDBERG DO,MPH Blood BLOOD SPECIMEN / Unknown 08/30/2021 1:29 PM SUBSTITUTE NURSE 08/30/2021 1:29 PM SUBSTITUTE NURSE Sarita Mckeon PA-C LAB - CHEMISTRY O RDERABLES Performing Organization Address [facility] Co de Phone Number [facility] [id number] [place] [address] * ERYTHROCYTE SEDIMENTATION RATE (08/30/2021 1:29 PM SUBSTITUTE NURSE) Erythrocyte Sedimentation Rate Westergren 9 < OR = 20 mm/h [facility] Comment: Test Performed at: [employer] [place] [address] CASEY LUNDBERG DO,MPH Blood BLOOD SPECIMEN / Unknown 08/30/2021 1:29 PM SUBSTITUTE NURSE 08/30/2021 1:29 PM SUBSTITUTE NURSE Narrative Authorizing Provider Result Brian Mckeon PA-C LAB - HEMATOLOGY ORDERABLES Performing Organization Address [facility] de Phone Number [facility] [address] [place] [address] * IGA BLOOD (08/30/2021 1:29 PM SUBSTITUTE NURSE) IgA 250 47 - 310 mg/dL [facility] Comment: Test Performed at: [employer] [place] [address] CASEY LUNDBERG DO,MPH Blood BLOOD SPECIMEN / Unknown 08/30/2021 1:29 PM SUBSTITUTE NURSE 08/30/2021 1:29 PM SUBSTITUTE NURSE Narrative Authorizing Provider Result Brian Mckeon PA-C LAB - CHEMISTRY O RDERABLES Performing Organization Address [facility] Co de Phone Number [facility] [address] [place] [address] * PAP IG LB +HPV APTIMA REFLEX 16,18/45 FOR HR POS (08/15/2021 10:47 AM SUBSTITUTE NURSE) Diagnosis [facility] INSURANCE BILL Comment: NEGATIVE FOR INTRAEPITHELIAL LESION OR MALIGNANCY. THIS SPECIMEN WAS RESCREENED PART OF OUR WATER MAINTENANCE SUPERVISOR PROGRAM. Specimen Adequacy [facility] INSURANCE BILL Comment: Satisfactory for evaluation. Endocervical and/or squamous metaplastic cells (endocervical component) are present. Clinician Provided ICD10 [facility] INSURANCE BILL Comment:Z01.419 Performed by [facility] INSURANCE BILL Comment:Raymond Orr , Hat Cone Inspector (ASCP) QC Reviewed by [facility] INSURANCE BILL Comment:Lolis Matias Hat Cone Inspector (ASCP) Comment . [facility] INSURANCE BILL Note [facility] INSURANCE BILL Comment: The Pap smear is a screening test designed to aid in the detection of premalignant and malignant conditions of the uterine cervix. It is not a diagnostic procedure and should not be used as the sole means of detecting cervical cancer. Both false-positive and false-negative reports do occur. . IGLBP CPT Code Automation [facility] INSURANCE BILL Comment: This liquid based ThinPrep(R) pap test was screened with the use of an image guided system. Human papillomavirus Aptima Negative Negative [facility] INSURANCE BILL Comment: This nucleic acid amplification test detects fourteen high-risk HPV types (16,18,31,33,35,39,45,51,52,56,58,59,66,68) without differentiation. ENTIRE ENDOCERVIX / Unknown 08/15/2021 10:47 AM SUBSTITUTE NURSE 08/16/2021 Narrative [facility] INSURANCE BILL - 08/22/2021 9:09 AM SUBSTITUTE NURSE No. of containers..01 ThinPrep Vial Resulting Agency Comment Lab Testing performed at: [address] [phone] Janae Valentin MD LAB - PATHOLOGY/CYTO LOGY ORDERABLES [facility] INSURANCE BILL [address] [place] [address] * MONITOR - HOLTER (08/01/2021 11:56 AM SUBSTITUTE NURSE) Narrative Sarah Caavnaugh MA [facility] - 08/01/2021 11:56 AM SUBSTITUTE NURSE Krissy Robertson MD 08/01/2021 11:57 AM 1. The patient monitor rhythm using a Holter monitor for 3 days. 2. Predominant rhythm is sinus 3. Episodic sinus tachycardia noted 4. Rare premature atrial complexes noted 5. Rare premature ventricular complexes noted 6. One five beat run of proximal atrial tachycardia noted. 7. No nonsustained sustained arrhythmia noted 8. No advanced conduction noted. Procedure Note Krissy Robertson MD - 08/01/2021 11:56 AM CST 1. The patient monitor rhythm using a Holter monitor for 3 days. 2. Predominant rhythm is sinus 3. Episodic sinus tachycardia noted 4. Rare premature atrial complexes noted 5. Rare premature ventricular complexes noted 6. One five beat run of proximal atrial tachycardia noted. 7. No nonsustained sustained arrhythmia noted 8. No advanced conduction noted. Leisa Lemons [facility] OR DERABLES * TSH+FREE T4+FREE T3 (07/18/2021 12:11 PM SUBSTITUTE NURSE) Pathologist [facility] TSH 2.610 0.450 - 4.500 uIU/mL [facility] INSURANCE BILL T3 Free 2.9 2.0 - 4.4 pg/mL [facility] INSURANCE BILL T4 Free 1.21 0.82 - 1.77 ng/dL [facility] INSURANCE BILL Comment:FASTING Blood BLOOD SPECIMEN / Unknown 07/18/2021 12:11 PM SUBSTITUTE NURSE 07/18/2021 Narrative Resulting Agency Comment Lab Testing performed at: [facility] [address] [facility] [phone] Leisa Lemons [facility] LAB - CHEMISTRY ORD ERABLES [facility] INSURANCE BILL [address] [place] [address] * LIPASE BLOOD (07/18/2021 12:10 PM SUBSTITUTE NURSE) Pathologist [facility] Lipase 55 14 - 72 U/L [facility] INSURANCE BILL Comment:FASTING Blood BLOOD SPECIMEN / Unknown 07/18/2021 12:10 PM SUBSTITUTE NURSE 07/18/2021 Narrative Resulting Agency Comment Lab Testing performed at: [facility] [address] [facility] [phone] Leisa Lemons [facility] LAB - CHEMISTRY ORD ERABLES Performing Organization Address City/[facility]/ZIP Co de Phone Number [facility] INSURANCE BILL [address] [place] [address] * HELICOBACTER PYLORI UREA BREATH TEST (07/18/2021 12:09 PM SUBSTITUTE NURSE) Helicobacter pylori Breath Negative Negative [facility] INSURANCE BILL Comment:FASTING Microbiology BREATH / Unknown 07/18/2021 12:09 PM SUBSTITUTE NURSE 07/18/2021 Narrative Resulting Agency Comment Lab Testing performed at: [facility] [address] [facility] [phone] Leisa Lemons [facility] LAB - MICROBIOLOGY ORDERABLES Performing Organization Address [facility] de Phone Number [facility] [address] [place] [address] * HIV-1 HIV-2 ANTIBODY + HIV P24 AG PANEL (07/18/2021 12:08 PM SUBSTITUTE NURSE) HIV Screen 4th Generation w Reflex Non Reactive Non Reactive [facility] INSURANCE BILL Comment:FASTING Blood BLOOD SPECIMEN / Unknown 07/18/2021 12:08 PM SUBSTITUTE NURSE 07/18/2021 Narrative Resulting Agency Comment Lab Testing performed at: [facility] [address] [facility] [phone] Leisa Lemons [facility] LAB - CHEMISTRY ORD ERABLES Performing Organization Address City/[facility]/ZIP Co de Phone Number [facility] INSURANCE BILL [address] [place] [address] * HEPATITIS C ANTIBODY (07/18/2021 12:08 PM SUBSTITUTE NURSE) Hepatitis C Antibody 0.1 0.0 - 0.9 s/co ratio [facility] INSURANCE BILL Comment: Negative: < 0.8 Indeterminate: 0.8 - 0.9 Positive: > 0.9 . The CDC recommends that a positive HCV antibody result be followed up with a HCV Nucleic Acid Amplification test (630310). FASTING Blood BLOOD SPECIMEN / Unknown 07/18/2021 12:08 PM SUBSTITUTE NURSE 07/18/2021 Narrative Resulting Agency Comment Lab Testing performed at: [facility] [address] [facility] [phone] Leisa Lemons MANAGEMENT NURSE RN-CARTON MAKING MACHINE OPERATOR LAB - CHEMISTRY ORD ERABLES [facility] INSURANCE BILL [address] [place] [address] Care Teams Concrete Puddler Relationship Specialty Start Date End Date Luiza Mcgarry DO [address] [facility] [place] [phone] PCP - General Internal Medicine 09/05/21 Janae Valentin MD [address] [place] [phone] Electromedical Equipment Technician Obstetrics and Gynecology 08/31/21 Arturo Arguello MD [address] [place] [address] Consulting Physician Obstetrics and Gynecology 08/31/21 Rossana Mcdonald MD [address] [place] [address] Global Creative Chairman Gastroenterology 08/31/21
--- OUTSIDE RECORDS SUMMARY | 2024-10-06 10:58 | XMS_ITS | Clinical Summary ---
Author Organization [facility] Address [address] [place] [address] Care Team Providers Care Milling Operator Name Role Phone Janae Valentin MD Unavailable Arturo Arguello MD Unavailable [phone] Rossana Mcdonald MD Unavailable Unavailab Luiza Mehta DO Primary Care Provider [phone] Source Comments [facility],non-owned Affiliates and Associated Physician Practices is amultiple site organization consisting of ambulatory clinics and hospital sitesin [place], [place], [place] and [place]. This disclosure is being madepursuant to the Care Everywhere program and may not contain all information available regarding this patient. Last updated 18.[facility] Allergies Active Allergy Reactions Criticality Noted Date Comments Topiramate Other Medium 09/05/2021 Tingling Medications * Be aware that medications may not be up to date on this document. Alwaysverify current medications with the patient. Medication Sig Dispensed Refills Start Date End Date Status Multiple Vitamin (MULTIVITAMIN PO) Take 1 tablet by mouth once daily Active Magnesium 400 MGIndications:Help s with constipation Take by mouth 2 times daily as needed Reasons: Helps with constipation Active tretinoin (RETIN-A) 0.025 % creamIndications:A cne vulgaris Pea sized amount to entire face at night. 30 days supply. 20 g 11 12/29/2021 Active Additional Information Patient taking differently: Topical PRN, Pea sized amount to entire face at night. 30 days supply., Reported on 05/13/2023 esomeprazole (NEXIUM) 40 MG capsule Take 1 (one) capsule by mouth 2 times daily, before breakfast and supper 180 capsule 3 01/30/2022 Active Additional Information Patient not taking.Reported on 05/13/2023 omeprazole (PRILOSEC) 40 MG capsule Take 1 (one) capsule by mouth 2 times daily, before breakfast and supper 180 capsule 3 03/05/2022 Active Additional Information Patient taking differently:40 mg Oral2 TIMES DAILY PRN, Heartburn, Reported on 05/13/2023 Other W-Biest 50/50 Crm 7.5 mg/mL, 2 pumps to skin once daily 10/10/2022 Active DHEA 25 MG Take 1 capsule by mouth once daily 10/10/2022 Active Loteprednol Etabonate 0.25 % SUSP 1 drop by Ophthalmic route 4 times daily Active SUMAtriptan (Imitrex) 100 MG tablet Take medication at the onset of migraine, may repeat in 2 hours 9 tablet 3 05/13/2023 Active escitalopram (Lexapro) 5 MG tabletIndications: Anxiety Take 1 (one) tablet by mouth at bedtime Reasons: Feeling Anxious 90 tablet 3 05/13/2023 Active propranolol (Inderal) 10 MG tablet TAKE 1 TABLET BY MOUTH EVERY 8 HOURS NEEDED FOR ANXIETY AND FOR INSOMNIA AND FOR PALPITATIONS 90 tablet 04/10/2024 Active hydrOXYzine HCl (Atarax) 25 MG tablet TAKE 1 TABLET BY MOUTH 4 TIMES DAILY NEEDED FOR ANXIETY 30 tablet 04/10/2024 Active Active Problems Problem Noted Date Diagnosed Date IC (interstitial cystitis) 05/18/2022 Irritable bowel syndrome with constipation 05/18 Other proteinuria 12/27/2021 Overview (12/27/2021): Could be related to recent uti. Drink more water. Recheck 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 12/27/2021 Overview (12/27/2021): Follow low oxylate diet. Recheck urine in 3 months. Drink more water. 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 Colonoscopy in 2019 showing sigmoid ulcer, but workup was not diagnostic of IBD. -neg celiac antibodies -continue following with GI -not repeating colonoscopy at this time. GI ordered MRI. -fecal calprotectin ordered Elevated liver enzymes 09/05/2021 Liver lesion 09/05/2021 Overview (12/13/2021): Two hepatic cysts liver lesion -seen on abdominal CT in 2019 and MRI 09/2021 Healthcare maintenance 09/05/2021 Overview (09/05/2021): -annual preventative visit done: 09/05/21 -colonoscopy 2019: no polyps. Repeat every 5 years for family hx. Insomnia 09/05/2021 Esophagitis 09/05/2021 Overview (12/13/2021): -EGD 09/04/21: path showing inflammation. Neg barettes. Neg h. Pylori. -pantoprazole Amenorrhea 09/05/2021 Anxiety 07/18/2021 Chronic migraine without [...] female) 12/13/2021 POP-Q stage 2 cystocele 04/27 Overview (12/13/2021): S/p surgery 10/2021 POP-Q stage 2 rectocele 04/27 Uterovaginal prolapse 2021 Overview (12/13/2021): S/p surgery 10/2021 Immunizations Name Administration Dates Next Due INFLUENZA VACCINE, TRIV. (AF LURIA, FLUZONE TRIVALENT; 6MO+) (IIV3) 05/21/2013 Covid Moderna primary monova lent 12+ yr 0.5mL 05/04/2021,10/12/2020,09/13/2020 INFLUENZA VACCINE, CELL CULT URE, QUADR. (FLUCELVAX QUADRIVALENT; 6MO+) (CCIIV4) 07/18/2021 INFLUENZA VACCINE, HIGH-DOSE , QUADR. (FLUZONE HIGH-DOSE QUADRIVALENT; 65Y+), 0.7 ML (HD-IIV4) 08/26/2014 INFLUENZA VACCINE, QUADR. (F LUZONE; FLULAVAL; FLUARIX; AFLURIA QUADRIVALENT; 6MO+), 0.5 ML (IIV4) 05/13/2023,07/23/2016 TDAP (7yrs+) 05/13/2023,05/21/2013 Family History Medical History Relation Name Comments Anxiety Disorder Brother Colitis Brother Depression Brother Migraine Brother None Known Father None Known Maternal Aunt CVA Maternal Grandfather Cancer - Colon Maternal Grandmother Cancer - Other Maternal Grandmother Colon polyps Maternal Grandmother None Known Maternal Uncle COPD - Chronic Obstructive Pulmonary Disease Mother Depression Mother High Blood Pressure Mother Other - Cardiac Mother Cancer - Bladder Paternal Aunt Cancer - Breast Paternal Aunt Cancer - Prostate Paternal Grandfather Cancer - Breast Paternal Grandmother Cancer - Skin, Melanoma Paternal Grandmother Renal Disease Paternal Uncle Migraine Sister Asthma Neg Hx Cancer - Ovarian Neg Hx Cancer - Skin, Non Melanoma Neg Hx Eczema Neg Hx Hemophilia Neg Hx Psoriasis Neg Hx Relation Name Status Comments Brother Alive Father Alive GERD, high PSA numbers Maternal Aunt Maternal Grandfather Maternal Grandmother colon c ancer Maternal Uncle Mother Alive Paternal Aunt Alive bladder cancer Paternal Grandfather Paternal Grandmother Paternal Uncle kidney cancer Sister Alive Social History Tobacco Use Types Packs/Day Years [...] money to buy more. Never true 11/02/19 Within the past 12 months, t he food you bought just didn't last and you didn't have money to get more. Never true 11/01/2021 Sex and Gender Information Value Date Recorded Sex Assigned at Female 07/17/2021 2:10 PM MBA INTERN Gender Identity Female 07/17/2021 2:10 PM MBA INTERN Sexual Orientation Straight 07/17/2021 2: 10 PM MBA INTERN Last Filed Vital Signs Vital Sign Reading [...] Mass Index 22.78 05/13/2023 9:55 AM CDT Plan of Treatment Health Maintenance Due Date Last Done Comments COLOGUARD (AGES 45-75) - COLON CA SCREENING [address] COLON[address]GRAPHY - COLON CA SCREENING 1974 FIT - COLON CA SCREENING 1974 FLEX SIG - COLON CA SCREENING 1974 MAMMOGRAM 10/03/2022 10/03/2021 COVID-19 VACCINE ( season) 2024 05/04/2021, 10/12/2020, 09/13/2020 INFLUENZA VACCINE (#1) 2024 , 07/18/2021, 07/23/2016, Additional history exists DEPRESSION SCREENING 08/26/2024 05/13/2023, 12/27/19 PNEUMOCOCCAL VACCINE 50+ (1 of 1 - PCV) 2024 ZOSTER VACCINE (1 of 2) 2024 LIPID TESTING 05/13/2028 05/13/2023, 08/26, 07/18/2021 COLONOSCOPY - COLON CA SCREENING 05/19/2029 05/19/2019, 05/19/2019 (Done Outside Per Report) Colorectal Cancer Screening 05/19/2029 DTAP/TDAP/TD VACCINES (3 - Td or Tdap) 05/13/2033 05/13/2023, 05/21/2013 HEPATITIS C SCREENING Completed 07/18/2021 HIV SCREENING Completed 07/18/2021 HEPATITIS B VACCINE Discontinued HIB VACCINE Aged Out No longer eligi ble based on patient's age to complete this topic HPV VACCINE Aged Out No longer eligi ble based on patient's age to complete this topic MENINGOCOCCAL (Group B) VACCINE Aged Out No longer eligible based on patient's age to complete this topic MENINGOCOCCAL VACCINE Aged Out No zamzam sinan eligible based on patient's age to complete this topic PNEUMOCOCCAL VACCINE Aged Out No long er eligible based on patient's age to complete this topic Medical Devices Implanted Type Area [employer]uts [employer] Bolts Assembler Device Identifier Shelf Expiration Date Model / Serial / Lot Sys Ureth Supp Obtryx Midurethral Trnstr Implanted:Qty: 1 on 11/01/2021 by Arturo Arguello MD at [facility] Bladder [employer] [facility] 09/16/2024 [id number] / / [id number] Procedures Procedure Name Priority Date/Time Associated Diagnosis Comments LIPID PROFILE Routine 05/13/2023 10:42 AM CDT Screening, ischemic heart disease MAMMO BILAT SCREENING W ADIEL Routine 10/03/2021 11:57 AM MBA INTERN Screening breast examination HEPATITIS C ANTIBODY Routine 07/18/2021 12:08 PM MBA INTERN Need for hepatitis C screening test HIV-1 HIV-2 ANTIBODY + HIV P24 AG PANEL Routine 07/18/2021 12:08 PM MBA INTERN Screening for HIV without presence of risk factors from Last 3 Months or Most Recently Relevant to Health Maintenance Results * (ABNORMAL) LIPID PROFILE (LIPID PANEL) (05/13/2023 10:42 AM CDT) Cholesterol 209(H) <200 mg/dL [facility] INSURANCE BILL Triglycerides 139 <150 mg/dL [facility] INSURANCE BILL HDL Cholesterol 71 >40 mg/dL [facility] INSURANCE BILL VLDL Calculated 28 <=30 mg/dL [facility] INSURANCE BILL LDL Calculated 110 <130 mg/dL [facility] INSURANCE BILL Blood BLOOD SPECIMEN / Unknown 05/13/2023 10:42 AM CDT 05/13/2023 Narrative Resulting Agency Comment Lab Testing performed at: [facility] [address] [place] [address] [id number] Luiza Mcgarry DO LAB - CHEMISTRY OR DERABLES [facility] INSURANCE BILL [address] [place] [address] * MAMMO BILAT SCREENING W ADIEL (10/03/2021 11:57 AM MBA INTERN) Anatomical Region Laterality Modality Breast Bilateral Mammography 10/04/2021 12:4 9 PM MBA INTERN Impressions 10/04/2021 12:51 PM MBA INTERN No mammographic evidence of malignancy. Recommendation: Resume routine yearly mammography schedule for women over age 40 or return sooner if clinically indicated. BI-RADS CATEGORY 1: NEGATIVE. *Reading Radiologist: Stephie Carranza on 10/04/2021 at 12:51 PM Narrative 10/04/2021 12:51 PM MBA INTERN Bilateral mammography. Most recent comparison: There are no prior studies for comparison. History: Screening mammogram. Technique: Bilateral Breasts. Mammography views included: CC and MLO. Images interpreted with CAD. Following current [facility] protocol, 3D mammographic tomosynthesis images were obtained and reviewed on a dedicated viewing station. FINDINGS: Breast composition: Heterogeneously dense which may obscure small masses. No suspicious calcifications, masses or areas of architectural distortion. Luiza Mcgarry DO MAMMO ORDERABLES * HIV-1 HIV-2 ANTIBODY + HIV P24 AG PANEL (07/18/2021 12:08 PM MBA INTERN) HIV Screen 4th Generation w Reflex Non Reactive Non Reactive [facility] INSURANCE BILL Comment:FASTING Blood BLOOD SPECIMEN / Unknown 07/18/2021 12:08 PM MBA INTERN 07/18/2021 Narrative Resulting Agency Comment Lab Testing performed at: [facility] [id number] Leisa Lemons [employer] LAB - CHEMISTRY ORD ERABLES Performing Organization Address City/[facility] Co de Phone Number [facility] INSURANCE BILL [address] [place] [address] * HEPATITIS C ANTIBODY (07/18/2021 12:08 PM MBA INTERN) [facility] Hepatitis C Antibody 0.1 0.0 - 0.9 s/co ratio [facility] INSURANCE BILL Comment: Negative: < 0.8 Indeterminate: 0.8 - 0.9 Positive: > 0.9 . The CDC recommends that a positive HCV antibody result be followed up with a HCV Nucleic Acid Amplification test (630666). FASTING Blood BLOOD SPECIMEN / Unknown 07/18/2021 12:08 PM MBA INTERN 07/18/2021 Narrative Resulting Agency Comment Lab Testing performed at: [facility] [address] [facility] [id number] [facility] - CHEMISTRY ORD ERABLES Performing Organization Address City/[facility]/ZIP Co de Phone Number [facility] INSURANCE BILL [address] [place] [address] from Last 3 Months or Most Recently Relevant to Health Maintenance Care Teams Milling Operator Relationship Specialty Start Date End Date Luiza Mcgarry DO [address] [place] [address] PCP - General Internal Medicine 09/05/21 Janae Valentin MD [address] [place] [phone] Clinical Scientist Obstetrics and Gynecology 08/31/21 Arturo Arguello MD [address] [place] [address] Consulting Physician Obstetrics and Gynecology 08/31/21 Rossana Mcdonald MD [address] [place] [address] Local Government Legislator Gastroenterology 08/31/21
--- OUTSIDE RECORDS SUMMARY | 2024-10-06 10:58 | XMS_ITS | Data Portability ---
Author Organization [facility] Address [address] [place] [address] Assessment Encounter Date Assessment Date Assessment LastModified by Organization Details LastModified Time 11/21/2023 11/21/2023 I spent 60 minutes of ygux-es-lgel counselling and care coordination time with the patient. This includes reviewing medical records (medical, surgical, family and social history); updating medication and allergy information in the electronic health record; and ordering labs, medications, and education materials to continue patient care. lvanschoyck Not available 11/21/2023 09:50:05 12/23/2023 12/23/2023 I spent 35 minutes of hdso-bm-nnef counselling and care coordination time with the patient. This includes reviewing medical records (medical, surgical, family and social history); updating medication and allergy information in the electronic health record; and ordering labs, medications, and education materials to continue patient care. lvanschoyck Not available 12/23/2023 16:26:56 01/27/2024 01/27/2024 I spent 35 minutes of qmod-gf-dewo counselling and care coordination time with the patient. This includes reviewing medical records (medical, surgical, family and social history); updating medication and allergy information in the electronic health record; and ordering labs, medications, and education materials to continue patient care. lvanschoyck Not available 01/26/2024 07:07:28 05/26/2024 05/26/2024 I spent 15 minutes of zquf-ng-mpjk counselling and care coordination time with the patient. This includes reviewing medical records (medical, surgical, family and social history); updating medication and allergy information in the electronic health record; and ordering labs, medications, and education materials to continue patient care. lvanschoyck Not available 05/26/2024 08:05:10 07/27/2024 07/27/2024 I spent 43 minutes of igew-nh-gtqk counselling and care coordination time with the patient. This includes reviewing medical records (medical, surgical, family and social history); updating medication and allergy information in the electronic health record; and ordering labs, medications, and education materials to continue patient care. [email or web address] Not available 07/27/2024 11:54:05 Plan of Treatment Reminders Order Date Submit Date Provider Last Modified By Organization Details Last Modified Time Details Appointments [id number] _DEA 2024 02:00P M TIFFANY KEEN NP Not available Not available Not available Lab CMP, serum or plasma 2023 024 [facility] (Lab), [address] [place] [address], [id number], 12/23/2023 13:56:17 insulin, fasting, serum 2023 024 [facility] (Lab), [address] [place] [address], [id number], 12/23/2023 15:42:09 lipid panel, serum 2023 024 [facility] (Lab), [address] [place] [address], [id number], 12/23/2023 13:56:17 HbA1c (hemoglob in A1c), blood 2023 024 [facility] (Lab), [address] [place] [address], [id number], 12/23/2023 13:56:17 TSH + free T4, serum 2023 024 [facility] (Lab), [address] [place] [address], [id number], 12/23/2023 15:42:09 T3, free, serum or plasma 2023 024 [facility] (Lab), [address] [place] [address], [id number], 04/30/2024 14:54:23 amylase + lipase, serum 2023 024 [facility] (Lab), [address] [place] [address], [address], 12/23/2023 13:56:17 vitamin D, 25-hydrox y, total, serum 2023 024 [facility] (Lab), [address] [place] [address], [id number], 12/23/2023 15:42:09 vitamin B12 + folate, serum or blood 2023 024 [facility] (Lab), [address] [place] [address], [address], 12/23/2023 15:42:09 amylase + lipase, serum [address] (Lab), [address] [place] [address], [id number], 05/07/2024 14:22:41 insulin, serum [address] (Lab), [address] [place] [address], [id number], 05/07/2024 14:22:49 vitamin B12 + folate, serum or blood [address] (Lab), [address] [place] [address], [id number], 05/07/2024 14:22:29 CMP, serum or plasma [address] (Lab), [address] [place] [address], [address], 05/07/2024 14:21:23 lipid panel, serum [address] (Lab), [address] [place] [address], [id number], 05/07/2024 14:21:31 HbA1c (hemoglob in A1c), blood [address] [place] [address] (Lab), [address] [place] [address], [id number], 05/07/2024 14:21:45 T3, free, serum or plasma [address] [place] [address] (Lab), [address] [place] [address], [address], 05/07/2024 14:22:02 vitamin D, 25-hydrox y, total, serum [address] [place] [address] (Lab), [address] [place] [address], [address], 05/07/2024 14:22:10 TSH + free T4, serum [address] [place] [address] (Lab), [address] [place] [address], [address], 05/07/2024 14:22:20 shbg (sex hormone-b inding globulin) , serum [address] [place] [address] (Lab), [address] [place] [address], [id number], 08/10/2024 12:11:41 testoster one, free, serum [address] [place] [address] (Lab), [address] [place] [address], [address], 08/10/2024 12:11:41 testoster one, total, serum [address] [place] [address] (Lab), [address] [place] [address], [address], 08/10/2024 12:11:41 testoster one, free + total, serum [address] [place] [address] (Lab), [address] [place] [address], [place], [address], 08/21/2024 00:03:12 Referral None recorded. Procedures None recorded. Surgeries None recorded. Imaging None recorded. Medication Orders Estrace 0.01% (0.1 mg/gram) vaginal cream 2023 024 [facility] [place], [address], 11/21/2023 09:53:25 Vivelle-D ot 0.05 mg/24 hr transderm al patch 2023 024 [facility] [address] [place], [address], 05/26/2024 10:30:47 Prometriu m 100 mg capsule 2023 024 [facility] [address] [place], [address], 05/26/2024 10:30:43 Semagluti de MIDI 2023 024 [facility], [address] [facility], [place], [address], 12/23/2023 16:20:03 Vivelle-D ot 0.075 mg/24 hr transderm al patch 2023 024 [facility] [address] [place], [address], 12/23/2023 16:03:43 Prometriu m 200 mg capsule 2023 024 [facility] [address] [place], [address], 12/23/2023 16:03:42 Estriol+ Face Cream ([facility]) 2023 024 [facility]icine * [facility]acy [place], [facility] [address], [place], [address], 12/23/2023 16:24:04 Semagluti de MIDI 2023 [facility], [address] [facility], [place], [address], 01/27/2024 16:53:44 Bundle B: 0.5 mL/week - [facility] [address] [facility] (Clinic Pay Unmonitored Fax), [address] [place] [address], [address], 07/27/2024 11:47:43 Estrace 0.01% (0.1 mg/gram) vaginal cream 2023 [facility] [id number], [address], 07/27/2024 12:20:39 estradiol 0.075 mg/24 hr semiweekl y transderm al patch 2023 [facility] [address], [address], 07/27/2024 12:20:38 Prometriu m 200 mg capsule [address], [address], 07/27/2024 12:20:45 Testoster one Compound Pump (4mg/gm) [facility] 2023 [facility] [place], [address] [place] [address], [address], 07/27/2024 12:20:53 nitrofura ntoin macrocrys romaine 50 mg capsule 2023 [facility] [id number] [place], [address], 07/27/2024 12:20:38 Patient TargetsNo targets recorded. Patient Instructions Encounter Date Encounter Id Patient Instructions Last Modified By Organization Details Last Modified Time 11/21/2023 [id number] Brain Fog & Cognition [facility] lvanschoyck Not available 11/21/2023 09:53:16 Vaginal Dryness [facility] lvanschoyck Not codie ilable 11/21/2023 09:53:17 Any requested follow-up visits are listed below in the Plan of Care section. Go directly to the [facility] planner scheduler at [email or web address] to book a time. lvanschoyck Not available 11/21/2023 07:43:29 It was a pleasur e to meet with you today! We discussed your health concerns related to weight gain, sleep issues, anxiety, and menopausal symptoms. -------- Your Care Plan -------- Together, we decided that you would: - Switch from your current hormone cream to an estrogen patch and oral progesterone. The estrogen patch will be a 0.5 dosage, which you will change twice a week. The progesterone will be 100 milligrams. These changes aim to provide a more consistent hormone dosage and help alleviate your symptoms. If you experience any side effects or if your symptoms do not improve, please contact us immediately. - Start using vaginal estrogen twice a week on the same days you change your estrogen patch. This should help with vaginal dryness and improve your sexual health. If you notice any irritation or other side effects, please let us know. - Undergo lab tests including a CMP (Comprehensive Metabolic Panel), insulin level, lipid level, hemoglobin A1C, TSH (Thyroid Stimulating Hormone), free T3, and vitamin D level. These tests will help us understand your overall health and guide your treatment plan. Please ensure these tests are done before our next appointment. - Continue taking your current medications: Imitrex for migraines, propranolol (10mg) and hydroxyzine (25mg) for anxiety as needed. Remember to take these medications only as directed and reach out if you have any concerns or side effects. - Schedule a follow-up appointment for December 18. During this appointment, we will review your lab results, discuss your response to the new hormone therapy, and adjust your treatment plan as necessary. In addition to these steps, I will be sending you some educational materials via email. These will include information on supplements that can help with sleep, as well as nutrition and exercise recommendations that can be beneficial during menopause. Please remember that if your symptoms worsen or if you experience any severe side effects from your new medications, seek immediate medical attention. For any questions or concerns related to your care plan, please don't hesitate to reach out to us via the [facility]ores patient portal. Please carefully review the care plan we have decided upon, specific information regarding your medication, and important details about your treatment detailed above. Thank you for trusting us with your care! Lavender: - Helpful for anxiety relief. This formulation of lavender had been studied and found to be comparably effective to common conventional anti-anxiety medications. - 80 mg Silexan per cap. Take 1-2 caps by mouth daily, as directed by your clinician. - Get it through [facility], our partner pharmacy. Look out for an email to buy your expert recommended product in a few clicks. Magnesium: - Supplementation with magnesium may help with sleep, muscle tension, constipation, and blood pressure. - Start with 1-2 capsules, as directed by clinician, 30-60 min prior to bedtime. - Get it through [facility], our partner pharmacy. Look out for an email to buy your expert recommended product in a few clicks. Melatonin: - Helpful for sleep. - Take 1-3 mg by mouth nightly 60 minutes prior to sleep. - Some people experience very vivid dreams when taking melatonin. If this is bothersome, discontinue and message us for alternative options. - Get it through [facility], our partner pharmacy. Look out for an email to buy your expert recommended product in a few clicks. Sleep Hygiene: -Create an ideal sleep environment by keeping your sleep space cool, dark, and quiet. Consider a white noise machine and/or cooling mattress pad (Chilipad, for example). -Avoid watching TV, using your phone or tablet for 30-60 minutes prior to bedtime. Research has shown that the blue light from screens can reduce melatonin (a primary sleep hormone) levels by 50%%. -Avoid caffeine 4-6 hour prior to bedtime. Try to finish dinner 3-4 hours before sleep. -Make time for exercise, but not within 3 hours of bedtime. -Keep your bed for sleep (and sex) only. Develop a pre-sleep ritual to follow nightly about 15 minutes prior to bedtime. Some people find it helpful to do some gentle stretching, take a warm bath, or meditate as part of their routine. Avoid daytime napping, and try to keep your daytime routine consistent. (Avoiding activities because you feel tired can reinforce insomnia.) -Stick to a routine, going to sleep and waking up at the same time each day. -Get more sunlight during the day: Try to go outside for at least 10 minutes within 30-60 minutes of waking, and again before sunset. Use artificial light for the same purpose in darker months. Sunglasses dim the effect, so avoid them if possible. Diet: Timing: Try intermittent fasting, eating during daylight hours over an 8 hour window. For example, eat between 10 a.m and 6 p.m. Try to finish your last meal at least 3-4 hours before bedtime to fully digest. Avoid alcohol and sugary sweets close to bedtime as it can lead to sleep disruption. Helpful food choices: - Choose complex carbohydrates over simple carbs to help avoid rapid spikes in blood sugar that may contribute to feelings of anxiety, as well as weight gain and metabolic disease. - A plant-based diet high in vegetables and fruits can help maintain healthy weight and assist in management of menopausal symptoms. - Aim to eat 20-25 grams of protein with each meal. - Twice weekly consume fatty fish like salmon or sardines. These types of fish contain healthy omega-3 fatty acids, which can provide benefits to mood, reduce inflammation, and improve brain and cardiovascular health. - Try to avoid refined sugars and high-glycemic foods to help balance mood and improve sleep. - Avoid caffeine, spicy foods, hot drinks, alcohol and sugar, which are known triggers for hot flashes and night sweats. Exercise: - Aim for regular exercise with 30 minutes of moderate intensity activity on at least 5 days of the week. - Incorporate weight training into your exercise routine to increase strength, improve metabolism, and maintain bone health. - Avoid exercise close to bedtime so it does not interfere with sleep. Lubricants are used only at the time of sexual activity and provide short term relief to help with pain associated with friction during sex. Lubricants may be water-based, silicone-based, or oil-based. Note that oil-based lubricants cause breakdown of latex condoms. Below are recommended options to try: - Good Clean Love Almost Naked Personal Lubricant - Sustain Unscented Personal Lubricant - UberLube - Coconut oil - Oneida oil ABOUT MENOPAUSAL HORMONE THERAPY Menopause symptoms vary from woman to woman. Some women get no symptoms, but others have many. Intensity and duration also vary and can last on average 5-10 years. HRT can help with many menopausal symptoms though it is FDA approved for hot flashes, vaginal symptoms, osteoporosis, and for those in early or premature menopause. Here are the latest recommendations from the [place] [employer] (NAMS): https://www.menopau se.org/docs/default- source/professional/ bwnefcbu-vjchwchb-kq out-ht-2021.pdf Hormone therapy most often involves the combination of estrogen and progesterone. We discussed the risks, health benefits, and potential side effects of short-term and longer-term use, including changes to bleeding patterns. Systemic estrogen, such as with the patch, may not provide total improvement in vaginal symptoms or libido. We can add topical estrogen therapy, as needed, and discuss other therapies to improve libido if needed, including testosterone. You can also use vaginal lubricants, as needed, for intercourse. There are also self-help strategies (dietary changes/exercise/acu puncture/etc.), herbal and other OTC therapies, as well as non-hormonal medications used to treat common menopausal symptoms. We will meet in 4 weeks to check in about your new regimen. Do reach out if you need to meet sooner. Brain fog: Symptoms and Recommendations It is very common for women to experience brain fog and memory lapses during perimenopause and menopause, often caused by the changing levels of hormones at midlife and sleep disturbances resulting from other menopausal symptoms. Estrogen is neuroprotective, meaning it has an important role in the healthy regulation of brain processes such as cognition, body temperature, sexual behavior, and anxiety and depression. Accordingly, studies have shown that lower levels of estradiol (a form of estrogen) is associated with diminished cognitive performance. In addition, the night sweats and hot flashes (vasomotor symptoms) many women experience lead to poorer sleep quality and less sleep, which naturally makes it more difficult to focus during the day. Exhaustion can also increase stress, which also interferes with concentration and memory. Hormone replacement therapy (HRT) helps to mitigate these symptoms and, in turn, combat brain fog and slower cognition. And there are many other ways to keep your mind and memory sharp during this transitional period. Research supports these relatively simple lifestyle shifts: - Practice mindfulness techniques to reduce stress. Activities such as meditation, slow breathing, and yoga can help you remain present and focus on your daily tasks. - Regular exercise can reduce stress, and is also thought to increase the size of the hippocampus, the part of your brain responsible for memory and learning. - Focus on sleep hygiene, so you get more and better rest and feel less brain fog. Some basics: avoid caffeine late in the day, put down screens an hour before bed, establish a consistent bedtime routine (wake up and go to sleep at the same time every day, set up some calming wind-down rituals), and maintain a cool, calm, and quiet environment for sleep. We have recommended the use of hormone therapy to treat your symptoms. Hormone therapy (HT) can help with many menopausal symptoms, though it is FDA approved for hot flashes, night sweats, vaginal symptoms, osteopenia, and for those in early or premature menopause. HT may have additional health benefits for bone, cardiac, and metabolic health depending on the age of initiation and years since menopause. Based on your personal medical and family history, you are a good candidate to try HT as you are close to the beginning of your menopause and have no history of stroke, blood clot, heart disease, breast or uterine cancer. Please know that fine-tuning and customization of your hormone therapy regimen are expected, and at follow-up visits, we will work with you to optimize your therapy. Keep in mind Hormone Therapy is not contraception, if you are under age 52 and still having periods be sure to discuss any need for control with your clinician. Please carefully review the care plan we decided upon, specific information regarding your medication, and important information about menopausal hormone therapy detailed below. Thank you for trusting us with your care! -------- Your Medication -------- Estradiol transdermal patch (Vivelle Dot): - Available at your pharmacy - Purpose: Helps relieve hot flashes, night sweats, and symptoms of perimenopause/menopa use - Dosage instructions: Use transdermal patch twice weekly (change on Saturday and Saturday) - Usage instructions: Apply the patch to a clean, dry area of your lower abdomen (avoid your waistline, where clothing friction can rub it off). Press the patch firmly in place for 10 seconds. Replace your patch twice a week (every 3 to 4 days). If the patch is not sticking or it causes irritation, try dusting your skin with a small amount of cornstarch before applying. - Mild Side Effects: Skin irritation, breast tenderness, moodiness, mild headache, and mild nausea. These mild symptoms usually will resolve. Some patients experience vaginal bleeding or spotting after starting hormone therapy - Severe Side Effects: Seek immediate medical attention if you experience chest pain, vision changes, or signs of a blood clot. - Contraindications: Those with a history of stroke, blood clot (DVT), breast or uterine cancer. Oral Micronized Progesterone (Prometrium) Continuous: - Available at your pharmacy - Purpose: Protects your uterus while you are taking estrogen and helps improve sleep quality - Dosage instructions: Take 100 mg orally at bedtime every night - Usage instructions: Take this medication before bed, as it may make you drowsy - Mild Side Effects: Cramping, bloating, and mild moodiness. It does cause some drowsiness, so be sure to take it at bedtime. Most patients enjoy improvement in restful sleep, but occasionally a person may feel groggy or tired the next day. - Severe Side Effects: Seek immediate medical attention if you experience severe mood changes - Contraindications: Those with peanut allergies due to peanut oil content lvanschoyck Not available 11/21/2023 09:58:34 12/23/2023 [id number] Any requested follow-up visits are listed below in the Plan of Care section. Go directly to the [facility] planner scheduler at [email or web address] to book a time. [email or web address] Not available 12/22/2023 10:56:34 It was a pleasur e to meet with you today! We discussed your health concerns related to menopause symptoms, weight gain, and skin changes. -------- Your Care Plan -------- Together, we decided that you would: - Increase the dosage of your estrogen patch to 0.75 and progesterone to 200 to help manage your menopausal symptoms. - Start taking a tano supplement to help with libido. - Consider starting a low dose thyroid medication to help with potential subclinical hypothyroidism. - Start a weight loss medication called semaglutide, which will be compounded by [facility]. This medication is an injection that you will take once a week. If you miss a dose, you can take it the next day, but do not delay it by more than 48 hours. If you feel pain in your abdomen, stop using it right away and contact your healthcare provider. - Consider using a cream called extra dial to help with skin firmness. - Continue to aim for at least 100 grams of protein, 25 grams of fiber, and less than 100 grams of carbs in your diet daily. - Continue your exercise routine, including walking a few miles a couple of times a week and doing weights a few times a week. - Schedule a follow-up appointment in 4 weeks on the 3rd at 4 o'clock. Please carefully review the care plan we have decided upon, specific information regarding your medication, and important details about your treatment detailed above. Thank you for trusting us with your care! INFO FOR WEIGHT MANAGEMENT/MEDICATIO NS: - Protein: Eat 100 grams daily (aim for at least 20g with every meal) - Fiber: Eat 25 grams daily (may include 10-12 grams of supplemental fiber) - Carbs: Aim for less than 100 grams daily - Hydration: Drink 100 oz water daily Exercise: -Aim for 150-200 minutes of vigorous exercise/week (at least 30 mins x 5 days a week) -Include strength training to maintain and build muscle Nutritional Consult: Let me know if you would like a referral to a marine photographer to help you with more detailed diet instruction and education. There are two virtual options for marine photographer/dietici an services that take insurance: Nourish: https://www.[employer]enouri [employer].com HealthLoft: https://healthloftco .com Gulshanmonya (probiotic): Studies: https://www.ncbi.nlm .nih.gov/pmc/article s/SYQ63310537 and https://www.ncbi.nlm .nih.gov/pmc/article s/XJC4953672 Where to buy (this is just one option, does not have to be this brand): https://Nubity/products/juanita ally-simonaananyajimbo FIBER: Increased fiber intake can be a successful strategy for weight management and modest weight loss. In addition, fiber has other helpful benefits to digestion, as a prebiotic for overall gut and immune health, moderating blood sugars and improving blood cholesterol levels. Please review the attached resource sheet The [facility] FAQs that provides more details on the daily recommended intake of fiber to achieve health goals. This includes strategies for incorporating fiber as a weight management strategy. Supplementing your diet with fiber through supplements and/or through dietary intake, or incorporating high fiber foods such as consuelo seeds into your daily regiment has been shown in some studies to lead to modest (5-6 lb) weight loss in just a few weeks. Fiber supplements like Konsyl fiber or Yerba Prima could be good options as they have been demonstrated to have the least contamination from lead (https://www.consume rlab.com/reviews/psy llium-supplements/ps yllium/). BERBERINE: Berberine is a supplement made from plant extracts that seems to have multiple health benefits, especially on metabolism and cardiovascular risks. Small scale studies support its use in controlling an appetite and specifically inhibiting an enzyme leading to central fat storage. These studies have shown modest weight loss (5 + lbs in 12 weeks) and reduction in waist circumference with daily use of berberine supplements. Berberine has been shown to reduce average blood sugar levels and HgA1C (the lab value that measures average blood sugar), lower triglycerides and lipid levels and positively affect metabolic syndrome. How to take berberine: The best evidence suggests that you take a berberine 500 mg tablet/ three times per day (total 1.5 gm/day). Take it 30 minutes before each meal. It has been used safely up to 6 months. Chronic use is not usually recommended as it is a potent antimicrobial and affects the gut microbiome. (It can cause digestive issues as a side effect.) The [facility] take: Early studies show amazing effects on cardiovascular risk factors overall but the studies are very small and more information is needed. It does appear to be safe, however: Cautions: - Berberine can interact with blood thinning medications and increase your risk of bruising or bleeding. If you are taking blood thinners such as coumadin, plavix. Eliquis, Pradaxa or Xeralto you may wish to consider alternatives to berberine in your metabolic care plan. - Berberine can interact with many drugs: Cozaar, metformin, tacrolimus, pentobarbital, Versed, Robitussin DM, sedatives, and other medications. These interactions may require more clinical monitoring or dose adjustments and should be discussed with your pharmacist and clinician. - If you have diabetes, berberine can lower your blood sugars and decrease your insulin needs, so monitoring your blood sugar closely is advised, and adjustments made under the advice of your diabetes physician. - Berberine can lower blood pressure, so taking it with medications that lower blood pressure might cause your blood pressure to go too low. Your blood pressure should be monitored closely. METFORMIN: Metformin is an oral prescription medication that can be used successfully for modest weight loss. Metformin has an excellent safety profile and is well-tolerated by most people. - It is also used by people with pre-diabetes, diabetes, PCOS and hormonal irregularities. The dosage of Metformin is titrated up slowly every 4-8 weeks to ensure you are able to tolerate the medication. Increasing the dosage too rapidly can lead to worsening side effects. Modest weight loss of approx 5-10lbs is usually seen when the dosage of Metformin is titated up to about 1000mg or 1500mg and that you are able to tolerate it at that dosage. Please be patient as this process can take several months to achieve the optimal dosage for you and your body. Ideally, taking Metformin before meals can help reduce carbohydrate absorption but that can often lead to nausea so it is best to take it with a meal or after a meal. If your prescription calls for taking more than 1 tablet per day: you can take all the pills with your largest meal; or take one with every meal. Efficacy is the same with either method. Common side effects include: nausea/vomiting, diarrhea, gas/bloating, stomach pain, headache and fatigue. Bothersome side-effects typically improve over the course of the first few weeks of taking Metformin. It is recommended to supplement daily with Vitamin B12 while on Metformin, as this medication can deplete your B12 stores. Please monitor your Vitamin B12 levels every 3-6 months to ensure that you are absorbing the supplementation. It is recommended to avoid excessive alcohol use while taking Metformin. Important Note: Lactic acidosis: Metformin associated lactic acidosis (IRENE) is rare but potentially life threatening. The symptoms of lactic acidosis include abdominal or stomach discomfort, decreased appetite, diarrhea, fast, shallow breathing, a general feeling of discomfort, muscle pain or cramping, and unusual sleepiness, tiredness, or weakness. Dehydration can be a cause of lactic acidosis. Remember to stay well-hydrated, and discontinue metformin therapy if you are experiencing vomiting, diarrhea or dehydration. Bariatric surgery increases risk for lactic acidosis. If you experience any concerning side effects, stop taking Metformin and contact your [facility] provider as soon as possible. However, if you suspect you are experiencing lactic acidosis, or other unusual and very concerning symptoms please go to urgent care or ER for immediate evaluation. HOW METFORMIN WORKS: Metformin's major effect is to decrease liver glucose output and increases glucose utilization in peripheral tissues (such as muscle and liver) and decreases the glucose absorbed by the intestines, particularly after meals. By decreasing the amount of glucose produced by the liver, it increases the body's sensitivity to insulin. Metformin has also been shown to decrease food intake, with some appetite suppression as it prompts the release of appetite suppressing hormones and affects the appetite-regulating parts of the brain. Metformin can lead to modest weight loss. Metformin can help reverse the metabolic changes that often happen with age: Lowering glucose levels keeps weight in a healthy range, helps maintain a healthy blood pressure and lowers the risk of cardiovascular disease. It can also lower inflammation, which is involved in the aging process. METFORMIN STUDIES: Multiple studies are underway at this time to evaluate the effect of Metformin for anti-aging. It has been featured in the news recently as a having potential to expand the lifespan - NOTE: there are no quality trials validating its use for anti-aging specifically. Some studies show it helps prevent cancer, slows down the aging process, protects the heart, and protects cognitive decline in the brain but it is not yet a confirmed clinical recommendation at this time. Metformin leads to decreased insulin levels, decreased IGF-1 signaling, inhibition of mTOR, inhibition of mitochondrial complex 1 in the electron transport chain and reduction of endogenous production of reactive oxygen species (ROS). In studies with rats at an early age, Metformin increases healthy lifespan by 14% but it is important to note, the later that Metformin was started, the less it increased healthy lifespan. It is hypothesized that if Metformin can target and delay aging, the use of it can be associated with fewer age related diseases. Clinical trials: The Diabetes Prevention Trial (DPP) The [place] Prospective Diabetes Study HOME TAME Metformin as Anti-Aging Therapy: Is It for Everyone? Link: https://www.liveMag.ro.Perceivant/science/gil lea/pii/A072178216 137744U Main Points (a review): Prolongs lifespan and healthspan in the invertebrate Caenorhabditis elegans and Mice as well as potentially human longevity Metformin regulates metabolic and non metabolic pathways in skeletal muscle and subcutaneous adipose tissues of older adults Link: https://onlinelibrar y.roca.com/doi/epdf /10.1111/acel.85280? src=getftr Main Points: Studied~70-year-old participants (n=14) in a randomized, double-blind, placebo-controlled,[facility] trial in which they were treated with 6 weeks each of metformin and placebo. Provides the first evidence that, in older adults, metformin has metabolic and non metabolic effects linked to aging (metformin therapy lowered 2-hour glucose, insulin AUC, and insulin secretion; 647 genes were differentially expressed in muscle and 146 genes were differentially expressed in adipose tissue; pyruvate metabolism and DNA repair in muscle and PPAR and SREBP signaling were significantly influenced) Benefits of Metformin in Attenuating the Hallmarks of Aging Link: https://www.ncbi.nlm .nih.gov/pmc/article s/GPO4792121/ Metformin mechanism: improving nutrient-sensing, enhancing autophagy and intercellular communication, protecting against macromolecular damage, delaying stem-cell aging, modulating mitochondrial function, regulating assistant golf course superintendent, and lowering telomere attrition and senescence. GLP-1 AGONISTS: How Do GLP-1 Agonists Work to help with weight loss? These medications decrease hunger cues, turns off food chatter , increases early satiety, & slows gastric emptying so patients stay rausch longer. Videos about the mechanism of action of GLP-1 agonists: https://www.youtube. com/watch?v=KsfDQQSZ UsA https://www.youtube. com/watch?v=P6gt4A_3 Whs Tips for Taking GLP-1s: Note: MOUNJARO/ZEPBOUND are brand names for TIRZEPATIDE and OZEMPIC/WEGOVY are brand names for SEMAGLUTIDE. -You can take with or without food -If you need to change the day of the week, you may do so as long as your last dose was given 2 or more days before -If you take too much you may have severe nausea, severe vomiting, and severe low blood sugar. This is why it is critical to follow the dosing regimen prescribed by your [facility] Weight Loss Expert. What to Do if You Miss a Dose -If you miss a dose, and the next scheduled dose is MORE than 2 days away (48 hours), take the missed dose as soon as possible -If you miss a dose, and the next scheduled dose is LESS than 2 days away (48 hours), do not administer the dose. Take your next dose on the regularly scheduled day -If you miss your dose for more than 2 weeks, take the next dose on the regularly scheduled day or message your [facility] Weight Loss Expert to talk about how to restart your treatment The most common side effects may include: nausea, diarrhea, constipation, headache, abdominal pain, tiredness, upset stomach, dizziness, feeling bloated, belching, gas, stomach flu, heartburn. The most common side effect is nausea. It tends to go away on its own, but here are some tips to help you manage nausea associated with this medication: -Eat bland, low-fat foods, like crackers, toast, and rice -Eat foods that contain water, like soups and gelatin -Avoid lying down after you eat -Go outdoors for fresh air -Eat more slowly Important Safety Information Tirzepatide/Mounjaro /Zepbound/Semaglutid e/Ozempic/Wegovy may cause serious side effects, including: -Inflammation of your pancreas (pancreatitis). Stop using this medication and call your [facility] healthcare provider right away if you have severe pain in your stomach area (abdomen) that will not go away, with or without vomiting. You may feel the pain from your abdomen to your back. -Gallbladder problems. May cause gallbladder problems, including gallstones. Some gallstones may need surgery. Call your [facility] healthcare provider if you have symptoms, such as pain in your upper stomach (abdomen), fever, yellowing of the skin or eyes (jaundice), or isabelle-colored stools. -Increased risk of low blood sugar (hypoglycemia) in patients with type 2 diabetes, especially those who also take medicines for type 2 diabetes such as sulfonylureas or insulin. This can be both a serious and common side effect. Talk to your [facility] healthcare provider about how to recognize and treat low blood sugar and check your blood sugar before you start and while you take this medication. Signs and symptoms of low blood sugar may include dizziness or light-headedness, blurred vision, anxiety, irritability or mood changes, sweating, slurred speech, hunger, confusion or drowsiness, shakiness, weakness, headache, fast heartbeat, or feeling jittery. -Kidney problems (kidney failure). In people who have kidney problems, diarrhea, nausea, and vomiting may cause a loss of fluids (dehydration) which may cause kidney problems to get worse. It is important for you to drink fluids to help reduce your chance of dehydration. -Serious allergic reactions. Stop using this medication and get medical help right away, if you have any symptoms of a serious allergic reaction, including swelling of your face, lips, tongue, or throat; problems breathing or swallowing; severe rash or itching; fainting or feeling dizzy; or very rapid heartbeat. -Change in vision in patients with type 2 diabetes. Tell your [facility] healthcare provider if you have changes in vision during treatment while on this medication. -Increased heart rate. This medication can increase your heart rate while you are at rest. Tell your [facility] healthcare provider if you feel your heart racing or pounding in your chest and it lasts for several minutes. -Depression or thoughts of suicide. You should pay attention to any mental changes, especially sudden changes in your mood, behaviors, thoughts, or feelings. Call your [facility] healthcare provider right away if you have any mental changes that are new, worse or worry you. If you EVER have any thoughts of self harm or thoughts of harming someone else, please go to the closest emergency department or call 911. You can also call / text [phone] https://[email or web address] org/?utm_source=soy enriquez&utm_medium=web&ut m_campaign=onebox COMPOUNDED MEDICATIONS FOR WEIGHT: Available for patients who's insurance will not cover the cost of medications or who are not able to access these medications due to supply chain issues. Compounded Semaglutide or Tirzepatide can be prescribed to: [facility] Located in [address], [place], [place] Phone number is: Approximate Cost: Semaglutide/Cyanocob alamin 1mg/1mg/ml 1ml vial -$80 5ml vial -$200 Supplies $5 Shipping $35 *They only do 1ml and 5ml vials. The dosing is as follows: 1st month: 1ml needed for the whole month 2nd month: 2ml needed for the whole month 3rd month: 5ml needed for the whole month 4th month: 6ml needed for the whole month 5th month and on, (max dosage): 8ml needed for the whole month Tirzepatide 10mg/ml (At this time this is NOT available for patients in the state [facility]) 1ml vial -$400 4ml vial -$1000 Supplies $5 Shipping $35 *They only do 1ml and 4ml vials. The dosing is as follows: 1st month: 1ml needed for the whole month 2nd month: 2ml needed for the whole month 3rd month: 3ml needed for the whole month 4th month: 4ml needed for the whole month 5th month: 5ml needed for the whole month 6th month and on, (max dosage): 6ml needed for the whole month Note: Please remember that it is a minimum of 4 weeks at any dose but you can always stay at a dose for longer than that. The goals are for patients to lose 1-2 pounds per week and have minimal or no side effects. The dosing should be titrated with these goals in mind. More info: -once [facility] receives the prescription they will be reaching out to you via email within the week. Please ensure that a correct email is on file in your patient portal. If they can't reach you via email they will be calling you. -you will be receiving instructions regarding how to draw up the medications and do the injections from the pharmacy along with the necessary supplies. Estriol Face Cream Studies show that a women s skin loses about 30% of its collagen during the first five years of menopause. When collagen diminishes, skin loses its firmness. We have recommended the use of the Estriol Facial Cream to treat your concerns of fine lines, wrinkles, uneven skin tone and dryness. Purpose: The active ingredients in this product work together to increase collagen and skin elasticity while brightening complexion, smoothing fine lines and wrinkles, reducing pore size and hydrating the skin. Estriol increases collagen production and skin firmness/elasticity, while decreasing pore size and smoothing fine lines and wrinkles. DMAE is a compound found naturally in the body with properties that brighten dull skin, smoothes fine lines and wrinkles, evens skin tone, and firms the skin. Hyaluronic Acid is an active ingredient known to help the skin retain moisture while plumping the skin. This helps to create a more hydrated complexion Usage instructions: Clean your skin with your preferred cleanser and/or toner, and allow the skin to dry completely. Apply 1 gram directly to the face and neck once daily. You may apply the cream under additional products, sunscreen or makeup. Allow the cream to absorb fully into the skin first. Possible side effects: Skin irritation, itching, redness of the skin may occur. These symptoms are likely to taper off when the skin acclimates to the product. There is a risk of worsening hyperpigmentation with topical estriol use, however, the hyaluronic acid and DMAE may actually mitigate this risk as they provide a brightening effect to the skin. You may also choose to skip skin surface areas where you are experiencing hyperpigmentation. Contraindications: Any patient with an allergy to the active or inactive ingredients should not use this product. This is available through the [facility] with a prescription from your provider. [email or web address] Not available 12/23/2023 16:25:58 01/27/2024 [id number] Any requested follow-up visits are listed below in the Plan of Care section. Go directly to the [employer] planner scheduler at [email or web address] to book a time. [email or web address] Not available 01/26/2024 07:06:40 It was a pleasur e to meet with you today! We discussed your health concerns related to your hormone therapy and weight loss. -------- Your Care Plan -------- Together, we decided that you would: - Continue your current hormone therapy with estrogen at 0.75. This seems to be helping with your hot flashes. We will reassess in four weeks to see if any adjustments are needed, particularly in relation to your libido. - Continue with the weight loss injections (semaglutide) at a dose of 0.25. You've reported a weight loss of about five to six pounds, which is a positive outcome. The medication also seems to be helping curb your appetite and cravings, particularly at night. If you miss a week, such as during a vacation, there's no need to worry. You might feel hungrier that week, but there are no adverse effects from missing a dose. - Follow up in four weeks to assess the effectiveness of the semaglutide and your hormone therapy. We've scheduled this appointment for March 02 at 9 a.m. Central Time. - Contact the lab's billing department regarding the denial of your lab work by your insurance. If the lab agrees, I can resend the orders with different codes to see if they will be covered by your insurance. You can then message me in the [facility]stores portal and I can resend everything. - Contact [facility] to ensure they have your correct address for the refill of your semaglutide. They should call you to confirm before shipping the medication. Please remember that if you have any questions or concerns, or if your symptoms worsen, you can reach out to me via the patient portal. Please carefully review the care plan we have decided upon, specific information regarding your medication, and important details about your treatment detailed above. Thank you for trusting us with your care! [email or web address] Not available 01/27/2024 17:07:09 05/26/2024 [id number] Any requested follow-up visits are listed below in the Plan of Care section. Go directly to the [facility] planner scheduler at [email or web address] to book a time. [email or web address] Not available 05/26/2024 08:04:37 It was a pleasur e to meet with you today! We discussed your health concerns related to weight management, anxiety, and sexual dysfunction. -------- Your Care Plan -------- Together, we decided that you would: - Continue using your current medications including the vaginal cream, Estriol face cream, fiber, Hydroxazine, Imitrex, Magnesium glycinate, and progesterone. Please remember to take these as prescribed and reach out if you have any questions or concerns. - Increase the dose of semaglutide from 0.25 to 0.5. This medication is used to help manage your weight. If you experience any significant side effects, you can reduce the volume of the injection. Please note that the cost may increase due to the higher dosage. - Get your testosterone levels checked. This is to help us understand more about your sexual dysfunction concerns. We will discuss the results at your next visit. - Schedule a follow-up appointment in 4 weeks. You will receive a reminder to schedule this when the time comes. - If you need refills for any of your medications, you can send a message through the portal. You can also update your preferred pharmacy through the portal. Please carefully review the care plan we have decided upon, specific information regarding your medication, and important details about your treatment detailed above. Thank you for trusting us with your care! [email or web address] Not available 05/26/2024 10:44:15 07/27/2024 [id number] Any requested follow-up visits are listed below in the Plan of Care section. Go directly to the [facility] planner scheduler at [email or web address] to book a time. [email or web address] Not available 07/27/2024 11:06:18 It was a pleasur e to meet with you today! We discussed your health concerns related to low libido, fatigue, and recurring urinary tract infections (UTIs). -------- Your Care Plan -------- Together, we decided that you would: - Start using topical testosterone, which is applied to the inner thigh or inner arm every day. Please avoid small pets or children for about 40 to 45 minutes after application until it dries. Start with 1 click (the lowest dose) and you can increase to 2 clicks after a couple of weeks if needed. This medication is prescribed to help with low libido and fatigue. Please note that side effects can include deepening of the voice, excessive facial hair growth, and in rare cases, enlargement of the clitoris. This medication will be sent to a compounding pharmacy, which will reach out to you to confirm shipping and payment details. - Continue using the vaginal estrogen cream twice a week. This is to help with symptoms related to hormonal shifts in the vaginal area, which may be contributing to your recurring UTIs. - Start taking Macrobid (an antibiotic) within 2 hours of intercourse as a prophylactic measure to prevent UTIs. This is because you've noticed that your UTIs often occur after intercourse. - Get lab tests done in about 6 weeks after starting the testosterone treatment. This is to monitor your testosterone levels and see if the treatment is effective. Please ensure there's at least a 4-hour gap between when you've used the testosterone cream and when you get the blood drawn. - Continue with your current hormone replacement therapy (HRT) regimen, which includes estradiol patch 0.075 and progesterone 200 milligrams at night. - Follow up with me on October 19 at 4:00 PM to discuss your progress and any changes in your symptoms. Please remember to contact me if you have any questions, concerns, or if your symptoms worsen. Please carefully review the care plan we have decided upon, specific information regarding your medication, and important details about your treatment detailed above. Thank you for trusting us with your care! -Testosterone is not FDA approved for use in women, but is commonly used to treat low libido in women. Treatment with testosterone in women has been associated with a modest improvement in sexual desire and satisfaction. - There is little shelter data on the safety of testosterone in women. Testosterone is not FDA approved for use in women. - You will be started on a low dose and we will increase your dose in order to give you the best overall benefit, without increasing your overall risk of side effects. -Common side effects that have been reported include, but are not limited to acne, mood changes, excessive hair growth, and weight gain. The doses that are prescribed for women typically will not cause male hormone side effects. Rarely high doses could lead to hair loss, deepening of the voice or enlargement of the clitoris and these changes may not be reversible. -In order to monitor your response to the use of testosterone, we will check your level before starting therapy and we will also monitor your testosterone blood levels frequently. - Please contact your [facility] clinician with any concerns. If you start to experience any alarming symptoms like chest pain or trouble breathing please go to the nearest emergency room for care. Recommendations for Recurrent UTIs: Midlife brings changes to our genital and urinary tracts that can cause a variety of symptoms called the genitourinary syndrome of menopause. There are a variety of effective treatments that we can discuss. Recurrent urinary tract infections may occur and can be a consequence of the following: -Constipation -Altered vaginal juarez due to menopause -Wet pads To prevent recurrent urinary tract infections: -Avoid and treat constipation -Urinate every 2-3 hours during the day whether or not you have sensation to void -Drink an adequate amount of fluids to stay well hydrated -Avoid caffeine (coffee, tea, soda) -Avoid frequent douching and bubble baths -We can also consider a prescription for vaginal estrogen cream, too Consider these supplements (available over the counter): -Cranberry extract, specifically 36mg daily proanthocyanidin -Probiotics (lactobacillus) tablets -D-mannose 2 grams daily (can take individually or in a product like [employer]) Not available 07/27/2024 12:18:07 Reason for Referral None Reported. Results Created Date Observation Date Name Description Value Unit Range Abnormal Flag Note LastModifiedBy Organization Detail LastModifiedTime Result Notes None recorded. Problems Name Problem SNOMED Code Status Onset Date Resolution Date Notes Provider Name and Address Organization Details Recorded Time Menopausal symptom 59168754 Active 2023 [place] [address] [place], [address], [facility] 4 07:43:29 Insomnia 958285486 Active 2023 [place] [address] [place], [address], [facility] 4 09:29:20 Obesity 280153819 Active 2023 [place] [address] [place], [address] [place] [address] 2, [facility] 4 09:29:36 Anxiety 22617597 Active 2023 [place] [address] [place], [address], [facility] 4 09:33:28 Migraine 08196660 Active 2023 [place] [address] [place], [address], [facility] 4 09:34:03 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 115215407 Active 2023 [place] [address] [place], [address], [facility] 4 09:45:32 Genitourina ry syndrome of menopause 6386637689202 9104 Active 2023 [place] [address] [place] [address], [facility] 4 09:45:32 Cognitive function finding 324983334 Active 2023 [place] [address] [address] 2, [facility] 4 09:46:08 Reduced libido 4065176 Active 2023 ISMAEL [place] [address] [place] [address], [facility] 4 09:51:19 Weight gain 7403509 Active 2023 [place] [address] [address] [place] [address], [facility] 4 16:13:48 Changes in skin texture 033881257 Active 2023 [place] [address] [address] [place] [address], [facility] 4 16:19:17 Fatigue 46189660 Active 2023 [place] [address] [place], [address], [facility] 4 16:58:18 Adult health examination Active 2023 [place] [address] [place], [address], [facility] 4 16:59:10 Abdominal bloating 517232663 Active 2023 [place] [address] [place], [address], [facility] 4 16:59:30 Abnormal weight gain 692793425 Active 2023 [place] [address] [place], [address], [facility] 4 10:34:19 Recurrent urinary tract infection 651915406 Active 2023 [place] [address] [place], [address], [facility] 4 11:42:02 Problem Notes None recorded. Procedures Surgical History Date Name Laterality Status Provider Name and Address Organization Details Recorded Time 2 Date of Last [place]ogram [place] [address] [place], , [facility] 11/21/2023 09:35:46 2 Date of Last Pap Smear completed [place]EU[place] [address], , [facility] 11/21/2023 09:35:29 Hysterectomy/b ladder repair completed IS[place]UE[place] [address], , [facility] 11/21/2023 09:36:29 Imaging Results None recorded. Procedure Notes None recorded. Medical Equipment None Reported. Allergies Allergen ID Allergen Name Allergen Category Reaction Reaction Severity Criticality Documentation Date Start Date Code Code System Note Provider Name and Address Organization Details Recorded Time 672989 topiramat e medicatio n Not available Not available high 07/27/20242021 50832 RxNorm Tingl ing unrec ogniz ed react ion (text : Other , code: 43302 07) (from [facility]) Not Available Not Available Not Available Medications Name Sig Start Date Stop Date Status Note LastModified by Organization Details LastModified Time Semaglutide MIDI Inject 0.25mg SQ weekly 2023 active Not Available Not Available Not Avai lable Semaglutide MIDI Inject 0.25mg SQ weekly 2023 active Not Available Not Available Not Avai lable Bundle B: 0.5 mL/week - Midi Rx Inject 50 units (0.5mg) SQ once weekly. 07/27 completed Not Available Not Available Not Available Testosteron e Compound Pump (4mg/gm) MIDI Apply 0.25gm (1 click) per day to inner thigh. Can increase to 2 clicks if needed. Wash hands after use. 2023 active Not Available Not Available Not Avai lable Estriol+ Face Cream (Midi Custom Rx) use as directed 2023 active Not Available Not Available Not Avai lable Prometrium 200 mg capsule Take 1 capsule every day by oral route at bedtime for 30 days. 2023 active Not Available Not Available Not Avai lable nitrofurant oin macrocrysta l 50 mg capsule Take 1 capsule by oral route as needed, for post coital prophylax is. 2023 active Not Available Not Available Not Avai lable estradiol 0.075 mg/24 hr semiweekly transdermal patch Apply 1 patch twice a week by transderm al route. 2023 active Not Available Not Available Not Avai lable sumatriptan 100 mg tablet TAKE ONE TABLET BY MOUTH AT ONSET OF MIGRAINE. IF SYMPTOMS PERSIST, A SECOND DOSE MAY BE TAKEN IN 2 HOURS. DO NOT EXCEED 2 DOSES IN A 24 HOUR PERIOD, UNLESS OTHERWISE INSTRUCTE D BY YOUR PHYSICIAN active Not Available Not Available No t Available Prometrium 100 mg capsule Take 1 capsule every day by oral route at bedtime for 30 days. 05/26 completed Not Available Not Available Not Available hydralazine 25 mg tablet Take 1 tablet twice a day by oral route. 05/26 completed Not Available Not Available Not Available sulfamethox azole 800 mg-trimetho prim 160 mg tablet TAKE 1 TABLET BY MOUTH TWICE A DAY FOR 3 DAYS 07/27 completed Not Available Not Available Not Available propranolol 10 mg tablet TAKE 1 TABLET BY MOUTH EVERY 8 HOURS NEEDED FOR ANXIETY AND FOR INSOMNIA AND PALPITATI ONS active Not Available Not Available No t Available cephalexin 500 mg capsule TAKE 1 CAPSULE BY MOUTH TWICE A DAY FOR 7 DAYS 07/27 completed Not Available Not Available Not Available Vivelle-Dot 0.05 mg/24 hr transdermal patch Apply 1 patch twice a week by transderm al route. 05/26 completed Not Available Not Available Not Available hydroxyzine HCl 25 mg tablet TAKE 1 TABLET BY MOUTH 4 TIMES DAILY NEEDED FOR ANXIETY active Not Available Not Available No t Available Estrace 0.01% (0.1 mg/gram) vaginal cream Apply to vulva and vagina 1 gm three times per week 2023 active Not Available Not Available Not Avai lable nitrofurant oin monohydrate /macrocryst als 100 mg capsule TAKE 1 CAPSULE BY MOUTH TWICE DAILY FOR 5 DAYS active Not Available Not Available No t Available fiber active Not Available Not Availa ble Not Available magnesium glycinate active Not Available Not Available No t Available Vitals Date Recorded Body height Body mass index (BMI) Body weight Provider Name and Address Organization Details Last Updated DateTime 11/21/2023 172.72 cm 24.9 kg/m2 17401.15 [place] [address] [place], [address], [facility] 11/21/2023 09:35:02 Date Recorded Body height Body mass index (BMI) Body weight Provider Name and Address Organization Details Last Updated DateTime 12/23/2023 172.72 cm 25.1 kg/m2 57409.[place] [address] [place], [address], [facility] 12/23/2023 16:12:09 Date Recorded Body height Body mass index (BMI) Body weight Provider Name and Address Organization Details Last Updated DateTime 01/27/2024 172.72 cm 24.3 kg/m2 09560.78 [place] [address] [place], [address], [facility] 01/27/2024 16:52:53 Date Recorded Body height Body mass index (BMI) Body weight Provider Name and Address Organization Details Last Updated DateTime 05/26/2024 162.56 cm 27.1 kg/m2 74276.59 [place] [address] [place], [place], , [facility] 05/26/2024 10:31:14 Social History Question Answer Notes LastModified by Organizat ion Details LastModified Time Tobacco Smoking Status [place] [address] [place], [place], , [facility] 11/21/2023 09:38:12 What Is Your Level Of Alcohol Consumption? Occasional Information not available 11/21/2023 How Many Times Per Week Do You Consume Alcohol? Less Than 1 Time Per Week Information not available 11/21/2023 Do You Use Any Illicit Or Recreational Drugs? No Information not available 11/21/2023 Sex: Female Functional Status None recorded. Mental Status None recorded. Family History Relationship Description Onset Age of this Age Resolved Age Notes LastModified by Organization Details LastModified Time Maternal Grandmother Malignant tumor of colon [email or web address] Not available 10/25 09:37:16 Paternal Grandmother Malignant tumor of breast lvanschoyck Not available 10/25 09:37:25 Father Heart disease lvanschoyck Not available 10/25 09:37:34 Mother Hypertensive disorder lvanschoyck Not available 10/25 09:37:49 Medical History Condition Response Anxiety Disorder Y Migraines Y Gynecological History Statement/Question Response Date of Last Mammogram 10/22/2021 Date of LMP 2021 Menses Monthly N Date of Last Pap Smear 2021 Current Control Method Hysterectom y Approximate Hormone Replacement Therapy Y Obstetrics History GPAL:G 7 P 0 0 0 4 Type Value Living 4 Total 7 Past Encounters Encounter ID Performer Location Encounter Start Date Encounter Closed Date Diagnosis/Indication Diagnosis SNOMED-CT Code Diagnosis ICD10 Code Diagnosis Note [id number] Alisia Jacob MD Main Office [address] [place] [address] 11/21/2023 08:32:40 11/22/2023 07:23:55 Menopausal symptom 92011478 N95.1 - Patient has been using estrogen cream from [facility] with some improvemen t in hot flashes and night sweats, but still experienci ng symptoms.- Plan to switch patient to an estrogen patch (0.5) and add oral progestero ne (100 mg) to address menopausal symptoms more effectivel y.- Follow up in four weeks to assess the effectiven ess of the new hormone therapy regimen. Insomnia 569437454 G47.0 0 - Patient struggling with sleep, possibly related to menopausal symptoms and anxiety.- Adding progestero ne to hormone therapy may help improve sleep.- Will monitor sleep improvemen t with new hormone therapy regimen and follow up in four weeks. Obesity 415077672 E66.9 - Patient has gained significan t weight over the past few years.- Ordered comprehens estevan lab tests, including CMP, insulin level, lipid level, hemoglobin A1C, TSH, free T3, and vitamin D to assess any underlying metabolic issues.- Provided education on nutrition and exercise recommenda tions for weight management .- Follow up in four weeks to discuss lab results and weight management progress. Genitourin bjorn syndrome of menopause [id number] 4147682 N95.8 N39.8 N94.10 - Patient experienci ng vaginal dryness and discomfort during intercours e.- Plan to prescribe vaginal estrogen to address dryness and improve tissue health.- Patient will use vaginal estrogen twice a week on the days she changes her estrogen patch.- Follow up in four weeks to assess the effectiven ess of the treatment. Health edu cation given 485792186 Z71.9 - Emailed patient education materials on supplement s for sleep, nutrition, and exercise recommenda tions.- Encouraged patient to follow up in four weeks to discuss progress and any concerns. Cognitive function finding 265647355 R41.9 - Patient reports brain fog, disorganiz ed thoughts, and difficulty focusing.- Will monitor cognitive function improvemen t with new hormone therapy regimen and follow up in four weeks. Reduced libido 5088112 R 68.82 - Patient experienci ng reduced libido and difficulty with arousal.- Plan to address libido issues by balancing hormones with the new therapy regimen.- Will reevaluate the need for additional treatments , such as arousal cream, after assessing the effectiven ess of the new hormone therapy.- Follow up in four weeks to discuss progress and any concerns. [id number] Alisia Jacob MD Main Office [address] [place] [address] 12/23/2023 15:03:37 12/24/2023 04:32:07 Menopausal symptom 65719668 N95.1 - Patient experienci ng some symptoms returning, such as hot flashes- Increased estrogen patch to 0.75 and progestero ne to 200 mg to address symptoms- Will monitor symptoms and follow up in four weeks Obesity 896251524 E66.9 - Discussed various weight loss options, including Berberine, Metformin, and compounded GLP-1 (Semagluti de)- Patient opted to try compounded Semaglutid e for one month to see if it helps with weight loss- Advised to maintain a high protein diet, aim for less than 100 grams of carbs, and continue exercise- Will re-evaluat e weight loss progress in four weeks Insomnia 496660022 G47.0 0 - Increased progestero ne to 200 mg to potentiall y improve sleep quality- Will monitor sleep and follow up in four weeks Reduced libido 4651499 R 68.82 - Suspect that low estrogen may be contributi ng to reduced libido- Increased estrogen patch to 0.75 to see if it improves libido- Will monitor and follow up in four weeks. Weight gain 0501059 R63. 5 - Addressed through obesity treatment plan (see diagnosis 2) Changes in skin texture 197947694 R23.4 - Discussed trying extra dial cream for skin firmness- Patient agreed to try the cream and will monitor results- Follow up in four weeks to assess effectiven ess [id number] Alisia Jaocb MD Main Office [address] [place] [address] 01/27/2024 16:04:15 01/28/2024 02:13:46 Menopausal symptom 78368518 N95.1 - Patient experienci ng some symptoms returning, such as hot flashes- Increased estrogen patch to 0.75 and progestero ne to 200 mg to address symptoms- Will monitor symptoms and follow up in four weeks Changes in skin texture 117644479 R23.4 - Discussed trying extra dial cream for skin firmness- Patient agreed to try the cream and will monitor results- Follow up in four weeks to assess effectiven ess Genitourin bjorn syndrome of menopause 7344392467 6823894 N95.8 N39.8 N94.10 - Patient experienci ng vaginal dryness and discomfort during intercours e.- Plan to prescribe vaginal estrogen to address dryness and improve tissue health.- Patient will use vaginal estrogen twice a week on the days she changes her estrogen patch.- Follow up in four weeks to assess the effectiven ess of the treatment. Insomnia 308622652 G47.0 0 - Increased progestero ne to 200 mg to potentiall y improve sleep quality- Will monitor sleep and follow up in four weeks Obesity 163900299 E66.9 - Discussed various weight loss options, including Berberine, Metformin, and compounded GLP-1 (Semagluti de)- Patient opted to try compounded Semaglutid e for one month to see if it helps with weight loss- Advised to maintain a high protein diet, aim for less than 100 grams of carbs, and continue exercise- Will re-evaluat e weight loss progress in four weeks Reduced libido 3635037 R 68.82 - Suspect that low estrogen may be contributi ng to reduced libido- Increased estrogen patch to 0.75 to see if it improves libido- Will monitor and follow up in four weeks. Weight gain 2738533 R63. 5 - Addressed through obesity treatment plan (see diagnosis 2) Fatigue 33392486 R53.83 Adult heal th examination 747718529 E61.1 M25.9 Abdominal bloating 98018 9008 R14.0 [id number] Alisia Jacob MD Main Office [address] [place] [address] 05/26/2024 09:34:03 05/29/2024 06:31:47 Obesity 077600137 E66.9 - Patient has been on semaglutid e, initially with a weight loss of approximat clyde 5 pounds.- Weight currently at 158 lbs.- Patient experience d a lapse in medication due to a delay in refill but has been back on it consistent ly since March with no further weight loss.- Reports occasional mild nausea and constipati on, managed by increasing magnesium intake.- Semaglutid e appears to be effective in reducing hunger and cravings for sweets.- Educated patient on the option to increase the dose to 0.5 mg from 0.25 mg, with the understand ing that if significan t side effects occur, the dose can be reduced.- Prescripti on for the increased dose of semaglutid e will be sent.- Follow-up appointmen t scheduled in 4 weeks to monitor progress and side effects. Abnormal weight gain 161 469090 R63.5 - Patient's weight has remained stable at 158 lbs despite consistent use of semaglutid e since March.- No significan t side effects reported other than occasional mild nausea and constipati on.- Patient has been advised to increase the dose of semaglutid e to 0.5 mg to potentiall y enhance weight loss.- Follow-up in 4 weeks to reassess weight and side effects. Reduced libido 8482309 R 68.82 - Patient reports reduced libido and lack of physical response despite having desire.- Current treatment includes vaginal estrogen cream and vitamin E suppositor ies for dryness.- Discussed the potential benefit of checking testostero ne levels to evaluate for low testostero ne as a contributi ng factor.- Ordered blood work to check testostero ne levels.- Educated patient that DHEA cream is unlikely to help with libido and physical response.- Plan to review testostero ne levels at the next visit and discuss further treatment options if necessary. [id number] Inessa Fuentes MD Main Office [address] [place] [address] 07/27/2024 10:37:17 07/28/2024 09:12:59 Reduced libido 8090112 R68.82 - Patient reports ongoing low libido despite current HRT.- Total testostero ne level: 10 ng/dL (reference range: 20-80 ng/dL).- Free testostero ne level: 1.1 pg/mL (reference range: 1.2-6.4 pg/mL).- Initiated topical testostero ne therapy to address low libido.- Educated patient on the applicatio n and potential side effects of testostero ne.- Follow-up labs ordered to assess testostero ne levels and symptom improvemen t in 6 weeks. [facility] edu cation given 876058077 Z71.9 - Educated patient on the applicatio n and potential side effects of topical testostero ne.- Discussed the importance of follow-up labs to monitor hormone levels and assess symptom improvemen t.- Educated patient on the use of vaginal estrogen cream and the importance of adherence to alleviate genitourin bjorn symptoms.- Discussed post-coita l prophylact ic antibiotic s for recurrent UTIs and the importance of urinating before and after intercours e.- Follow-up appointmen t scheduled for October 19 at 4:00 PM to reassess symptoms and review lab results. Menopausal symptom 50259 002 N95.1 - Patient reports ongoing symptoms of menopause including low energy.- Currently on estradiol patch 0.075 mg and progestero ne 200 mg nightly.- Advised to continue current hormone replacemen t therapy (HRT).- Discussed the addition of topical testostero ne to address low libido and fatigue.- Educated patient on the applicatio n of topical testostero ne to the inner thigh or inner arm daily, avoiding contact with small pets or children for 40-45 minutes post-appli cation.- Discussed potential side effects of testostero ne including deepening of the voice, excessive facial hair growth, and clitoromeg whit.- Ordered follow-up labs to be done in 6 weeks to monitor testostero ne levels and assess for symptom improvemen t.- Follow-up appointmen t scheduled for October 19 at 4:00 PM. Fatigue 90551677 R53.83 - Patient reports significan t fatigue, described as feeling like walking through Jell-O. - Discussed potential benefits of testostero ne therapy for fatigue, although evidence in women is limited.- Initiated topical testostero ne therapy as described above.- Follow-up labs ordered to assess testostero ne levels and symptom improvemen t in 6 weeks. Recurrent urinary tract infection 439604289 N39.0 - Patient reports four UTIs in the last six months, with two occurring within the last month.- Currently on Macrobid for active UTI.- UTIs appear to be post-coita l.- Advised to continue current antibiotic course.- Initiated post-coita l prophylact ic antibiotic s: Macrobid 50mg within 2 hours of intercours e.- Patient currently taking Cranberry supplement s and D-Mannose. - Educated patient on the importance of urinating before and after intercours e and maintainin g adequate fluid intake.- Prescripti [facility] to [facility]. Genitourin bjorn syndrome of menopause [id number] 2836640 N95.8 - Patient reports vaginal dryness and recurrent UTIs.- Currently using vaginal estrogen cream 1 gram twice a week.- Advised to increase vaginal estrogen cream to 1 gram three times a week.- Educated patient on the importance of continuing vaginal estrogen to alleviate symptoms.- Prescripti on for vaginal estrogen cream adjusted to reflect increased usage. Health Concerns Section Related Observation LastModified by Organization Detai ls LastModified Time None Recorded Concern Status LastModified by Organization Details LastModified Time None Recorded Advance Directives Directive None Recorded Payers Encounter Date Sequence Insurance Name Policy Number Policy Ruvalcaba Covered Member ID Ruvalcaba Member ID Guarantor Name 11/21/2023 1 [facility] [id number] Anabell D Louie [id number] Anabell Louie 12/23/2023 1 [facility] [id number] Anabell D Louie [id number] Anabell Louie 01/27/2024 1 [facility] [id number] Anabell D Louie [id number] Anabell Louie 05/26/2024 1 [facility] [id number] Anabell D Louie [id number] Anabell Louie 07/27/2024 1 [facility] [id number] Anabell D Louie [id number] Anabell Louie Notes Date Note Type Note Provider Name and Address Organization Details Recorded Time 4 text/html Patient is a 48 year old female presenting with concerns about rapid weight gain, sleep disturbances, and menopausal symptoms despite using estrogen cream. She also reports anxiety and migraines. Menopausal Symptoms:- Patient has been using an estrogen cream from [facility] for over a year, which has provided some relief but not fully addressed her symptoms.- She reports having to continually increase the dosage of the cream to maintain symptom relief.- She experiences hot flashes, which have improved during the day but still disrupt her sleep at night.- She had a hysterectomy and still has her ovaries. She was told she didn't need progesterone because she doesn't have a uterus, but she wonders if adding progesterone might help her symptoms. Weight Gain:- Patient reports rapid weight gain over the past year, gaining 40 pounds despite not changing her lifestyle.- She has always been thin and is distressed by the weight gain, which is primarily in her abdomen.- She is interested in exploring options to address this issue. Sleep Disturbances:- Patient has been struggling with sleep for years, with the issue worsening over the past two to three years.- She wakes up at night due to hot flashes and has difficulty falling back asleep.- She also reports waking up due to back pain and feeling extremely stiff in the morning. Anxiety:- Patient experiences generalized anxiety and occasional panic attacks.- She takes propranolol 10mg and hydroxyzine 25mg as needed for anxiety.- She often takes propranolol at night when feeling overwhelmed.- She is unsure how much of her anxiety is hormone-related. Migraines:- Patient takes Imitrex for migraines. Joint Pain:- Patient reports experiencing joint pain, particularly in her lower back, hips, knees, and ankles. Sexual Health:- Patient reports low libido and painful intercourse due to vaginal dryness.- She uses lubricants during intercourse and is interested in options to address this issue. Medication History:- Patient is currently using an estrogen cream from [facility], which she applies three pumps of daily.- She takes Imitrex for migraines, propranolol 10mg and hydroxyzine 25mg as needed for anxiety.- She also takes a fiber supplement, a metabolism boost supplement, and magnesium glyconate, though she often forgets to take the magnesium at night.- She occasionally takes multivitamins. Relevant Past Medical History:- Patient had a hysterectomy due to irregular periods and everything being prolapsed, which was causing bowel and urine issues. 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 Family History:- Patient's maternal grandmother had colon cancer, and her paternal grandmother had breast cancer and melanoma.- Her father has heart disease, and her mother has high blood pressure. Her maternal grandfather also had heart issues, and her paternal grandfather had prostate cancer. Lifestyle:- Patient does not smoke and drinks socially.- She tries to walk several miles when she can and is on her feet all day at work. Lab Work:- Patient has not had recent blood work done, but is open to having labs done to check her thyroid, insulin level, lipid level, hemoglobin A1C, TSH, free T3, and vitamin D level. PMHx:- Anxiety- Migraines PSHx:- Hysterectomy (2021)- Bladder repair (2021)- Exploratory laparoscopy (Date not mentioned) FMHx:- Colon cancer (Maternal grandmother)- Breast cancer (Paternal grandmother)- Melanoma (Paternal grandmother)- Heart disease (Father)- High blood pressure (Mother)- Prostate cancer (Paternal grandfather) Current Meds:- Imitrex- Estrogen cream (3 pumps daily)- Propranolol 10mg (as needed)- Hydroxyzine 25mg (as needed) Allergies:- NKDA Social Hx:- Tobacco Use: Denies tobacco use- Alcohol Use: Drinks socially Virtual Visit AttestationModality: VideoProvider Location: HomePatient State: {{AL AK AZ AR CA CO CT DE DC FL GA HI ID IL* IN [place] S [place] FRANCIE HERRING MD ME GA MN MS MO MT NE NV NH NJ NM NY NC ND OH OK OR PA RI SC SD T N TX UT VT VA [place]} }[{{ * }}]I have obtained consent from the patient for use of autoscribe.MIDLIFE SYMPTOM ASSESSMENTS1. Hot Flash + Night SweatsSeverity (qualitative): Moderate2. Trouble SleepingPROMIS Score = 73.3Severity (qualitative): Severe3. MoodGAD-7 Score = 9 (Mild Anxiety)PHQ-8 Score = 12 (Moderate Depression)Severity (qualitative): ModerateExperiencing more anger than usualLevel of difficulty due to these problems to do work, take care of things at home, or get along with other people: Somewhat difficult4. Weight + Body ChangesGained 31-50 pounds. Most of the weight gain in the last 1-2 years5. Painful Sex, Vaginal Dryness + Libido ChangeSeverity (Qualitative): ModerateFSFI Score = 20Degree of Sexual Desire or Interest: LowDifficulty Maintaining Lubrication until Completion of Sexual Activity: Slightly difficultFrequency of Pain or Discomfort during Vaginal Penetration: A few times (less than half the time)6. Brain FogSeverity (qualitative): ModerateSeverity of impact to work (quantitative): 04/04Description of impact: Have trouble concentrating, feel scattered and disorganized 7. Hair + Skin ChangesSeverity of hair+skin changes: Moderate8. Joint pain + Bone Loss + Fracture RiskSeverity (qualitative): ModerateSeverity of impact to work (quantitative): 05/05--PAST MEDICAL HISTORYAnxiety, Endometriosis, MigrainesNo breast cancerAny other cancers: None; Dates: Unknown--GYNECOLOGY HISTORYGYN HxLMP:Menstrual stage reported: I m not sureOBHxReports not likely to be G7+A4Gacjayrnl for 48 months in total for all childrenSEXUAL HxPatient is sexually active with MenCurrent Contraception: I used contraception in the past Details: Unknown, since: UnknownPast Contraception: Oral contraceptive, Condoms, VasectomyGYN SURGICAL HxBladder suspension/sling, Uterus removed, Cervix removed- Reason: Prolapse and incontinenceHRT HxPatient is or has used HRT: Systemic (pills, patch, spray, gel, vaginal ring ([employer])- Details: [facility] bioidentical estrogen cream--FAMILY HISTORYFamily s medical history: Heart disease, Stroke, Osteoporosis, Colon or rectal cancer, Breast cancerWhich family member: Maternal grandmother colon cancer, paternal grandmother breast cancer, father heart disease--SOCIAL HISTORYCurrently working: [employer] Race/ethnicit y: White (Eg: Emirati, German, Lebanese, Tuvaluan, Pakistani, Puerto Rican, etc)Sex assigned at : FemaleCurrent Gender: Female; She/HerRelationship and orientation: Partnered, /permanently from spouse/partner, Straight or heterosexualDIETNo special dietEXERCISEExercise regimen: Walk and/or lift 2-3xs per weekSMOKINGStatus: Never smokerPacks per day (current):UnknownPacks per day (past): UnknownStart year:UnknownQuit year: UnknownETOHReported drinks: Glasses of wine: 0, Cans of beer or cider: 4, Shots of liquor: 2,CBDDoes not use CBDRECREATIONAL DRUGSDenies THC useDenies other recreational drugs--SCREENING AND HEALTH CARE MAINTENANCEPap Smear:Last Pap: 09/21/2021bnormal paps: True, Details: Abnormal pap in 1995, had colposcopy and normal sinceMammogram:Last mammogram: 10/22/2021bnormal mammograms: False. Additional Details: Unknown, UnknownBreast Biopsy: Performed on approx. Unknown, results were Unknown Bone HealthBMD: UnknownNo past fracturesNo steroid useMENTAL HEALTHHistory of abuse: None; No abuse counselingGAD-7 Score = 9PHQ-9 Score = 12--GENERAL HEALTHBMI = 25Height in inches: 68Weight in pounds: 162 She has been struggling with weight management for {{ 2 years#}} and is seeking options for medications for weight reduction and improvement of overall health. Highest BMI: {{ 25#}} Current weight: {{ 162#}} BMI:25 Goal weight: {{ 140#}} BMI: Last time at goal weight: 1 year Her comorbidities include {{ none#}}. Her highest HbA1c was {{ none#}}. 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 Her family history does not include: thyroid cancer Her most recent blood work was on {{ 1 year ago just basic labs#}} [place]: [place] [id number] [place], [address], [facility] 02/27/2024 14:55:52 4 text/html Patient is a 48 year old female presenting with concerns about menopausal symptoms, decreased libido, and weight gain. Menopausal Symptoms:- Patient reports some symptoms are starting to reappear, such as hot flashes.- She has been on an estrogen patch and progesterone, but feels the dosage may need to be adjusted as symptoms are creeping back up.- She has not experienced any side effects from the progesterone but also has not noticed any significant benefits in terms of sleep improvement. Decreased Libido:- Patient reports a decrease in libido over the past month.- She is unsure if this is due to situational factors or hormonal imbalance.- She is considering increasing her estrogen dosage to see if it improves her libido. Weight Gain:- Patient reports no significant weight changes, but expresses distress over not fitting into her clothes.- She has gained approximately 40 pounds over the last three years without any significant lifestyle changes.- She is considering trying a GLP-1 medication for weight loss, but is also open to trying Berberine or Metformin.- She is determined to lose weight and regain her previous body shape. Lab Results:- Patient's recent lab results show a hemoglobin A1c of 5.4, which is normal.- Her ALT and AST are 33 and 26 respectively, which are normal but she prefers them to be in the teens.- Total cholesterol is slightly elevated at 210, with LDL at 124, HDL at 61, and triglycerides at 79.- Amylase is slightly elevated, indicating potential issues with carbohydrate digestion.- Vitamin D and B12 levels are good, at 69 and 902 respectively.- TSH is 2.29, which is normal, but free T4 is on the lower end of normal at 0.97, indicating potential subclinical hypothyroidism.- Insulin is at a good level of 6. Skin Changes:- Patient reports noticing changes in her skin, specifically a loss of firmness.- She is considering trying a cream to help with this issue. Stressors:- Patient is currently going through a divorce and has recently been promoted at work, both of which are adding to her stress levels.- She is struggling with self-image due to her weight gain and is determined to make changes to improve her health and confidence. PMHx:- Menopause Current Meds:- Estrogen patch- Progesterone Social Hx:- Occupation: Recently promoted at work- Physical activity: Walking a few miles a couple times a week, weight training a few times a week- Diet habits: High protein diet, less than 100 grams of carbs, 12 hour intermittent fast Virtual Visit Attestation Modality: Video Provider Location: Home Patient State: {{AL AK AZ AR CA CO CT DE DC FL GA HI ID IL* IN [place] K S [place] FRANCIE HERRING MD ME GA MN MS MO MT NE NV NH NJ NM NY NC ND OH OK OR PA RI SC SD T N TX UT VT VA WA [place] WI [place]} } [{{ * }}]I have obtained consent from the patient for use of autoscribe. Patient is a 48 year old female presenting with concerns about rapid weight gain, sleep disturbances, and menopausal symptoms despite using estrogen cream. She also reports anxiety and migraines. Menopausal Symptoms:- Patient has been using an estrogen cream from [employer] for over a year, which has provided some relief but not fully addressed her symptoms.- She reports having to continually increase the dosage of the cream to maintain symptom relief.- She experiences hot flashes, which have improved during the day but still disrupt her sleep at night.- She had a hysterectomy and still has her ovaries. She was told she didn't need progesterone because she doesn't have a uterus, but she wonders if adding progesterone might help her symptoms. Weight Gain:- Patient reports rapid weight gain over the past year, gaining 40 pounds despite not changing her lifestyle.- She has always been thin and is distressed by the weight gain, which is primarily in her abdomen.- She is interested in exploring options to address this issue. Sleep Disturbances:- Patient has been struggling with sleep for years, with the issue worsening over the past two to three years.- She wakes up at night due to hot flashes and has difficulty falling back asleep.- She also reports waking up due to back pain and feeling extremely stiff in the morning. Anxiety:- Patient experiences generalized anxiety and occasional panic attacks.- She takes propranolol 10mg and hydroxyzine 25mg as needed for anxiety.- She often takes propranolol at night when feeling overwhelmed.- She is unsure how much of her anxiety is hormone-related. Migraines:- Patient takes Imitrex for migraines. Joint Pain:- Patient reports experiencing joint pain, particularly in her lower back, hips, knees, and ankles. Sexual Health:- Patient reports low libido and painful intercourse due to vaginal dryness.- She uses lubricants during intercourse and is interested in options to address this issue. Medication History:- Patient is currently using an estrogen cream from [employer], which she applies three pumps of daily.- She takes Imitrex for migraines, propranolol 10mg and hydroxyzine 25mg as needed for anxiety.- She also takes a fiber supplement, a metabolism boost supplement, and magnesium glyconate, though she often forgets to take the magnesium at night.- She occasionally takes multivitamins. Relevant Past Medical History:- Patient had a hysterectomy due to irregular periods and everything being prolapsed, which was causing bowel and urine issues. 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 Family History:- Patient's maternal grandmother had colon cancer, and her paternal grandmother had breast cancer and melanoma.- Her father has heart disease, and her mother has high blood pressure. Her maternal grandfather also had heart issues, and her paternal grandfather had prostate cancer. Lifestyle:- Patient does not smoke and drinks socially.- She tries to walk several miles when she can and is on her feet all day at work. Lab Work:- Patient has not had recent blood work done, but is open to having labs done to check her thyroid, insulin level, lipid level, hemoglobin A1C, TSH, free T3, and vitamin D level. PMHx:- Anxiety- Migraines PSHx:- Hysterectomy (2021)- Bladder repair (2021)- Exploratory laparoscopy (Date not mentioned) FMHx:- Colon cancer (Maternal grandmother)- Breast cancer (Paternal grandmother)- Melanoma (Paternal grandmother)- Heart disease (Father)- High blood pressure (Mother)- Prostate cancer (Paternal grandfather) Current Meds:- Imitrex- Estrogen cream (3 pumps daily)- Propranolol 10mg (as needed)- Hydroxyzine 25mg (as needed) Allergies:- NKDA Social Hx:- Tobacco Use: Denies tobacco use- Alcohol Use: Drinks socially Virtual Visit AttestationModality: VideoProvider Location: HomePatient State: {{AL AK AZ AR CA CO CT DE DC FL GA HI ID IL* IN IA K S [place] FRANCIE HERRING MD ME GA MN MS MO MT NE NV NH NJ NM NY NC ND OH OK OR PA RI SC SD T N TX UT VT VA WA W[place] WI [place]} }[{{ * }}]I have obtained consent from the patient for use of autoscribe.MIDLIFE SYMPTOM ASSESSMENTS1. Hot Flash + Night SweatsSeverity (qualitative): Moderate2. Trouble SleepingPROMIS Score = 73.3Severity (qualitative): Severe3. MoodGAD-7 Score = 9 (Mild Anxiety)PHQ-8 Score = 12 (Moderate Depression)Severity (qualitative): ModerateExperiencing more anger than usualLevel of difficulty due to these problems to do work, take care of things at home, or get along with other people: Somewhat difficult4. Weight + Body ChangesGained 31-50 pounds. Most of the weight gain in the last 1-2 years5. Painful Sex, Vaginal Dryness + Libido ChangeSeverity (Qualitative): ModerateFSFI Score = 20Degree of Sexual Desire or Interest: LowDifficulty Maintaining Lubrication until Completion of Sexual Activity: Slightly difficultFrequency of Pain or Discomfort during Vaginal Penetration: A few times (less than half the time)6. Brain FogSeverity (qualitative): ModerateSeverity of impact to work (quantitative): 04/04Description of impact: Have trouble concentrating, feel scattered and disorganized 7. Hair + Skin ChangesSeverity of hair+skin changes: Moderate8. Joint pain + Bone Loss + Fracture RiskSeverity (qualitative): ModerateSeverity of impact to work (quantitative): 05/05--PAST MEDICAL HISTORYAnxiety, Endometriosis, MigrainesNo breast cancerAny other cancers: None; Dates: Unknown--GYNECOLOGY HISTORYGYN HxLMP:Menstrual stage reported: I m not sureOBHxReports not likely to be G7+W3Lhksjpzys for 48 months in total for all childrenSEXUAL HxPatient is sexually active with MenCurrent Contraception: I used contraception in the past Details: Unknown, since: UnknownPast Contraception: Oral contraceptive, Condoms, VasectomyGYN SURGICAL HxBladder suspension/sling, Uterus removed, Cervix removed- Reason: Prolapse and incontinenceHRT HxPatient is or has used HRT: Systemic (pills, patch, spray, gel, vaginal ring ([employer])- Details: [employer] bioidentical estrogen cream--FAMILY HISTORYFamily s medical history: Heart disease, Stroke, Osteoporosis, Colon or rectal cancer, Breast cancerWhich family member: Maternal grandmother colon cancer, paternal grandmother breast cancer, father heart disease--SOCIAL HISTORYCurrently working: [employer] Race/ethnicit y: White (Eg: Emirati, German, Lebanese, Tuvaluan, Pakistani, Puerto Rican, etc)Sex assigned at : FemaleCurrent Gender: Female; She/HerRelationship and orientation: Partnered, /permanently from spouse/partner, Straight or heterosexualDIETNo special dietEXERCISEExercise regimen: Walk and/or lift 2-3xs per weekSMOKINGStatus: Never smokerPacks per day (current):UnknownPacks per day (past): UnknownStart year:UnknownQuit year: UnknownETOHReported drinks: Glasses of wine: 0, Cans of beer or cider: 4, Shots of liquor: 2,CBDDoes not use CBDRECREATIONAL DRUGSDenies THC useDenies other recreational drugs--SCREENING AND HEALTH CARE MAINTENANCEPap Smear:Last Pap: 09/21/2021bnormal paps: True, Details: Abnormal pap in 1995, had colposcopy and normal sinceMammogram:Last mammogram: 10/22/2021bnormal mammograms: False. Additional Details: Unknown, UnknownBreast Biopsy: Performed on approx. Unknown, results were Unknown Bone HealthBMD: UnknownNo past fracturesNo steroid useMENTAL HEALTHHistory of abuse: None; No abuse counselingGAD-7 Score = 9PHQ-9 Score = 12--GENERAL HEALTHBMI = 25Height in inches: 68Weight in pounds: 162She has been struggling with weight management for {{ 2 years#}} and is seeking options for medications for weight reduction and improvement of overall health. Highest BMI: {{ 25#}}Current weight: {{ 162#}} BMI:25Goal weight: {{ 140#}} BMI:Last time at goal weight: 1 year Her comorbidities include {{ none#}}. Her highest HbA1c was {{ none#}}. 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 Her family history does not include:thyroid cancer Her most recent blood work was on {{ 1 year ago just basic labs#}} [place]: [place] [address] [facility], [place], [address], [facility] 12/24/2023 00:21:30 4 text/html Patient is a 48 year old female presenting for a follow-up visit to discuss her hormone replacement therapy, weight management, and sleep disturbances. Hormone Replacement Therapy:- Patient reports an improvement in hot flashes since the increase in her estrogen dosage to 0.75.- She mentions still experiencing some sleep disturbances, but attributes this to her current hectic schedule due to moving.- Patient also notes a lag in libido, but is hesitant to use the cream due to its messiness.- She is open to continuing the current hormone therapy regimen for another month before reassessing. Weight Management:- Patient has been using a weight loss injection, which she accidentally spilled, but there was enough for the first four weeks of treatment.- She reports a weight loss of approximately 5-6 pounds and a decrease in her appetite, especially for sweets and late-night snacking.- She mentions feeling a difference in her body and has been focusing on consuming more protein.- She experienced slight nausea after the first use of the injection but has not noticed any other side effects.- She is curious about the effects of skipping a week of the injection during her upcoming vacation. Sleep Disturbances:- Patient is currently struggling with sleep, but attributes this to her hectic schedule due to moving and a recent promotion at work.- She is open to reassessing her sleep situation after her life calms down in about four weeks. Lab Work:- Patient mentions that her insurance denied her recent lab work due to the diagnosis not being approved.- She plans to contact the lab's billing department to inquire about resubmitting the labs with different codes. PMHx:- Otherwise healthy Current Meds:- Estrogen 0.75- Semaglutide 0.25 Social Hx:- Occupation: Received a promotion at work- Living conditions: Recently moved Virtual Visit Attestation Modality: Video Provider Location: Home Patient State: {{AL AK AZ AR CA CO CT DE DC FL GA HI ID IL* IN [place] K S [place] FRANCIE HERRING MD ME GA MN MS MO MT NE NV NH NJ NM NY NC ND OH OK OR PA RI SC SD T N TX UT VT [facility] [place]} } [{{ * }}]I have obtained consent from the patient for use of autoscribe. Patient is a 48 year old female presenting with concerns about menopausal symptoms, decreased libido, and weight gain. Menopausal Symptoms:- Patient reports some symptoms are starting to reappear, such as hot flashes.- She has been on an estrogen patch and progesterone, but feels the dosage may need to be adjusted as symptoms are creeping back up.- She has not experienced any side effects from the progesterone but also has not noticed any significant benefits in terms of sleep improvement. Decreased Libido:- Patient reports a decrease in libido over the past month.- She is unsure if this is due to situational factors or hormonal imbalance.- She is considering increasing her estrogen dosage to see if it improves her libido. Weight Gain:- Patient reports no significant weight changes, but expresses distress over not fitting into her clothes.- She has gained approximately 40 pounds over the last three years without any significant lifestyle changes.- She is considering trying a GLP-1 medication for weight loss, but is also open to trying Berberine or Metformin.- She is determined to lose weight and regain her previous body shape. Lab Results:- Patient's recent lab results show a hemoglobin A1c of 5.4, which is normal.- Her ALT and AST are 33 and 26 respectively, which are normal but she prefers them to be in the teens.- Total cholesterol is slightly elevated at 210, with LDL at 124, HDL at 61, and triglycerides at 79.- Amylase is slightly elevated, indicating potential issues with carbohydrate digestion.- Vitamin D and B12 levels are good, at 69 and 902 respectively.- TSH is 2.29, which is normal, but free T4 is on the lower end of normal at 0.97, indicating potential subclinical hypothyroidism.- Insulin is at a good level of 6. Skin Changes:- Patient reports noticing changes in her skin, specifically a loss of firmness.- She is considering trying a cream to help with this issue. Stressors:- Patient is currently going through a divorce and has recently been promoted at work, both of which are adding to her stress levels.- She is struggling with self-image due to her weight gain and is determined to make changes to improve her health and confidence. PMHx:- Menopause Current Meds:- Estrogen patch- Progesterone Social Hx:- Occupation: Recently promoted at work- Physical activity: Walking a few miles a couple times a week, weight training a few times a week- Diet habits: High protein diet, less than 100 grams of carbs, 12 hour intermittent fast Virtual Visit AttestationModality: VideoProvider Location: HomePatient State: {{AL AK AZ AR CA CO CT DE DC FL GA HI ID IL* IN IA K S ESTHELA MARMOLEJO MA, MD ME GA MN MS MO MT NE NV NH NJ NM NY NC ND OH OK OR FAVIO TREVIÑO SC SD T N TX UT VT WA WA W[place] WI W[place]} }[{{ * }}]I have obtained consent from the patient for use of autoscribe. Patient is a 48 year old female presenting with concerns about rapid weight gain, sleep disturbances, and menopausal symptoms despite using estrogen cream. She also reports anxiety and migraines. Menopausal Symptoms:- Patient has been using an estrogen cream from [employer] for over a year, which has provided some relief but not fully addressed her symptoms.- She reports having to continually increase the dosage of the cream to maintain symptom relief.- She experiences hot flashes, which have improved during the day but still disrupt her sleep at night.- She had a hysterectomy and still has her ovaries. She was told she didn't need progesterone because she doesn't have a uterus, but she wonders if adding progesterone might help her symptoms. Weight Gain:- Patient reports rapid weight gain over the past year, gaining 40 pounds despite not changing her lifestyle.- She has always been thin and is distressed by the weight gain, which is primarily in her abdomen.- She is interested in exploring options to address this issue. Sleep Disturbances:- Patient has been struggling with sleep for years, with the issue worsening over the past two to three years.- She wakes up at night due to hot flashes and has difficulty falling back asleep.- She also reports waking up due to back pain and feeling extremely stiff in the morning. Anxiety:- Patient experiences generalized anxiety and occasional panic attacks.- She takes propranolol 10mg and hydroxyzine 25mg as needed for anxiety.- She often takes propranolol at night when feeling overwhelmed.- She is unsure how much of her anxiety is hormone-related. Migraines:- Patient takes Imitrex for migraines. Joint Pain:- Patient reports experiencing joint pain, particularly in her lower back, hips, knees, and ankles. Sexual Health:- Patient reports low libido and painful intercourse due to vaginal dryness.- She uses lubricants during intercourse and is interested in options to address this issue. Medication History:- Patient is currently using an estrogen cream from [employer], which she applies three pumps of daily.- She takes Imitrex for migraines, propranolol 10mg and hydroxyzine 25mg as needed for anxiety.- She also takes a fiber supplement, a metabolism boost supplement, and magnesium glyconate, though she often forgets to take the magnesium at night.- She occasionally takes multivitamins. Relevant Past Medical History:- Patient had a hysterectomy due to irregular periods and everything being prolapsed, which was causing bowel and urine issues. 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 Family History:- Patient's maternal grandmother had colon cancer, and her paternal grandmother had breast cancer and melanoma.- Her father has heart disease, and her mother has high blood pressure. Her maternal grandfather also had heart issues, and her paternal grandfather had prostate cancer. Lifestyle:- Patient does not smoke and drinks socially.- She tries to walk several miles when she can and is on her feet all day at work. Lab Work:- Patient has not had recent blood work done, but is open to having labs done to check her thyroid, insulin level, lipid level, hemoglobin A1C, TSH, free T3, and vitamin D level. PMHx:- Anxiety- Migraines PSHx:- Hysterectomy (2021)- Bladder repair (2021)- Exploratory laparoscopy (Date not mentioned) FMHx:- Colon cancer (Maternal grandmother)- Breast cancer (Paternal grandmother)- Melanoma (Paternal grandmother)- Heart disease (Father)- High blood pressure (Mother)- Prostate cancer (Paternal grandfather) Current Meds:- Imitrex- Estrogen cream (3 pumps daily)- Propranolol 10mg (as needed)- Hydroxyzine 25mg (as needed) Allergies:- NKDA Social Hx:- Tobacco Use: Denies tobacco use- Alcohol Use: Drinks socially Virtual Visit AttestationModality: VideoProvider Location: HomePatient State: {{AL AK AZ AR CA CO CT DE DC FL GA HI ID IL* IN IA K S ESTHELA MARMOLEJO MA, MD ME GA MN MS MO MT NE NV NH NJ NM NY NC ND OH OK OR PA RI SC SD T N TX UT VT VA WA WV WI WY} }[{{ * }}]I have obtained consent from the patient for use of autoscribe.MIDLIFE SYMPTOM ASSESSMENTS1. Hot Flash + Night SweatsSeverity (qualitative): Moderate2. Trouble SleepingPROMIS Score = 73.3Severity (qualitative): Severe3. MoodGAD-7 Score = 9 (Mild Anxiety)PHQ-8 Score = 12 (Moderate Depression)Severity (qualitative): ModerateExperiencing more anger than usualLevel of difficulty due to these problems to do work, take care of things at home, or get along with other people: Somewhat difficult4. Weight + Body ChangesGained 31-50 pounds. Most of the weight gain in the last 1-2 years5. Painful Sex, Vaginal Dryness + Libido ChangeSeverity (Qualitative): ModerateFSFI Score = 20Degree of Sexual Desire or Interest: LowDifficulty Maintaining Lubrication until Completion of Sexual Activity: Slightly difficultFrequency of Pain or Discomfort during Vaginal Penetration: A few times (less than half the time)6. Brain FogSeverity (qualitative): ModerateSeverity of impact to work (quantitative): 04/04Description of impact: Have trouble concentrating, feel scattered and disorganized 7. Hair + Skin ChangesSeverity of hair+skin changes: Moderate8. Joint pain + Bone Loss + Fracture RiskSeverity (qualitative): ModerateSeverity of impact to work (quantitative): 05/05--PAST MEDICAL HISTORYAnxiety, Endometriosis, MigrainesNo breast cancerAny other cancers: None; Dates: Unknown--GYNECOLOGY HISTORYGYN HxLMP:Menstrual stage reported: I m not sureOBHxReports not likely to be G7+D1Bxfvpyora for 48 months in total for all childrenSEXUAL HxPatient is sexually active with MenCurrent Contraception: I used contraception in the past Details: Unknown, since: UnknownPast Contraception: Oral contraceptive, Condoms, VasectomyGYN SURGICAL HxBladder suspension/sling, Uterus removed, Cervix removed- Reason: Prolapse and incontinenceHRT HxPatient is or has used HRT: Systemic (pills, patch, spray, gel, vaginal ring ([employer]emring)- Details: [place] bioidentical estrogen cream--FAMILY HISTORYFamily s medical history: Heart disease, Stroke, Osteoporosis, Colon or rectal cancer, Breast cancerWhich family member: Maternal grandmother colon cancer, paternal grandmother breast cancer, father heart disease--SOCIAL HISTORYCurrently working: [employer] - [employer] Race/ethnicit y: White (Eg: Emirati, German, Lebanese, Tuvaluan, Pakistani, Puerto Rican, etc)Sex assigned at : FemaleCurrent Gender: Female; She/HerRelationship and orientation: Partnered, /permanently from spouse/partner, Straight or heterosexualDIETNo special dietEXERCISEExercise regimen: Walk and/or lift 2-3xs per weekSMOKINGStatus: Never smokerPacks per day (current):UnknownPacks per day (past): UnknownStart year:UnknownQuit year: UnknownETOHReported drinks: Glasses of wine: 0, Cans of beer or cider: 4, Shots of liquor: 2,CBDDoes not use CBDRECREATIONAL DRUGSDenies THC useDenies other recreational drugs--SCREENING AND HEALTH CARE MAINTENANCEPap Smear:Last Pap: 09/21/2021bnormal paps: True, Details: Abnormal pap in 1995, had colposcopy and normal sinceMammogram:Last mammogram: 10/22/2021bnormal mammograms: False. Additional Details: Unknown, UnknownBreast Biopsy: Performed on approx. Unknown, results were Unknown Bone HealthBMD: UnknownNo past fracturesNo steroid useMENTAL HEALTHHistory of abuse: None; No abuse counselingGAD-7 Score = 9PHQ-9 Score = 12--GENERAL HEALTHBMI = 25Height in inches: 68Weight in pounds: 162She has been struggling with weight management for {{ 2 years#}} and is seeking options for medications for weight reduction and improvement of overall health. Highest BMI: {{ 25#}}Current weight: {{ 162#}} BMI:25Goal weight: {{ 140#}} BMI:Last time at goal weight: 1 year Her comorbidities include {{ none#}}. Her highest HbA1c was {{ none#}}. 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 Her family history does not include:thyroid cancer Her most recent blood work was on {{ 1 year ago just basic labs#}} and revealed: [place] [address], [place], [address], [facility] - [facility] 01/27/2024 20:01:21 4 text/html Patient is a 48 year old female presenting for a follow-up visit to discuss her ongoing issues with weight management, anxiety, and sexual dysfunction. Weight Management:- Patient reports her current weight is 158 lbs.- She has been on semaglutide since her last visit in January.- She experienced a delay in refilling her semaglutide prescription due to a vacation and a promotion at work, which resulted in a period of non-use.- Since resuming the medication in March, she has not noticed any change in her weight.- She reports occasional bouts of nausea and constipation, which she manages by increasing her magnesium intake.- She notes that the medication seems to help with her hunger and has reduced her cravings for sweets. Anxiety:- Patient is taking hydroxazine as needed for anxiety.- She also takes progesterone 200 mg as needed, which she describes as more of an anxiety medication rather than a regular blood pressure medication. Sexual Dysfunction:- Patient reports a disconnect between her desire for sexual activity and her body's physical response.- She uses a vitamin E suppository and a gel insert for vaginal dryness.- She is interested in exploring options to improve her sexual response and is open to checking her testosterone levels. Medications:- Patient is using a vaginal cream and an Estriol face cream a couple of days a week.- She is taking fiber, hydroxazine, Imitrex, and magnesium glycinate.- She is on a 0.75 patch and has been started on semaglutide for weight management.- She is considering increasing her dose of semaglutide to see if it improves her weight loss results. Other:- Patient recently received a promotion at work, which has resulted in increased stress and irregular days off.- She has moved and needs to update her preferred pharmacy information in her portal. 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 [address] [place], [address], [facility] 05/29/2024 13:46:26 4 text/html Virtual Visit AttestationModality: VideoProvider Location: Home Patient Location: Home Patient State: {{AL AK AZ AR CA CO CT DE DC FL GA HI ID IL* IN RACHAEL K S ESTHELA MARMOLEJO MA, MD AL GA MN MS MO MT NE NV NH NJ NM NY NC ND OH OK OR PA RI SC SD T N TX UT VT VA WA WV WI WY} } Patient is a 48 year old female presenting to discuss her low libido, fatigue, and recurring UTIs. She is also considering testosterone treatment. Low Libido:- Patient reports struggling with low libido for a couple of years.- Describes a disconnect between mental interest and physical response.- Mentions having regular intercourse but feels a mental disconnect during the act.- Reports that hormone replacement therapy (HRT) has helped but she is still struggling.- Patient has been using vaginal estrogen but is unsure if it has significantly helped with dryness. Recurring UTIs:- Patient reports recurring UTIs, with four instances in the last 4-6 months.- Believes the UTIs are related to intercourse and has been using vaginal estrogen twice a week.- Currently on Macrobid for the UTIs.- Reports an increase in UTIs despite using the vaginal estrogen cream. Fatigue:- Patient reports struggling with low energy.- Describes feeling like she is walking through [employer] on her days off.- Hopes that testosterone treatment might help boost her energy levels. Testosterone Treatment:- Patient's total testosterone level is 10 and free testosterone is 1.1, both of which are on the lower side for someone in perimenopause/menopause.- Considering testosterone treatment to potentially help with libido and fatigue.- Has never had testosterone replacement before. Hormone Replacement Therapy (HRT):- Patient has been on HRT, which has helped with some symptoms but she is still struggling with low libido and recurring UTIs.- Currently taking estradiol patch 0.075 and progesterone 200 milligrams at night.- Also using vaginal estrogen cream twice a week. Weight Management:- Patient was previously on semaglutide for weight loss but stopped due to more side effects than benefits.- Reports losing about 15 pounds initially but then weight loss plateaued.- Currently managing weight through intermittent fasting and watching carb intake. Lab Results:- Patient's total testosterone level is 10 and free testosterone is 1.1, both of which are on the lower side for someone in perimenopause/menopause.- Sex hormone binding globulin level is 47.- Lab tests were done on June 13. PMHx:- Hysterectomy- Menopause- Recurrent Urinary Tract Infections Current Meds:- Estradiol Patch 0.075- Progesterone 200 mg nightly- Vaginal Estrogen Cream 1 gram twice a week Social Hx:- Occupation: [place] [address] [facility], [place], [address], [facility] 07/28/2024 14:54:31 OBGyn Episode No OBEpisode recorded.
--- OUTSIDE RECORDS SUMMARY | 2024-10-06 10:58 | XMS_ITS | Referral Summary ---
Author Organization [facility] Address [address] [place] [address] Care Team Providers Care Cuff Turner Name Role Phone Janae Valentin MD Unavailable Arturo Arguello MD Unavailable [phone] Rossana Mcdonald MD Unavailable Unavailab Luiza Mehta DO Primary Care Provider [phone] Source Comments [facility],non-owned Affiliates and Associated Physician Practices is amultiple site organization consisting of ambulatory clinics and hospital sitesin [place], [place], [place] and [place]. This disclosure is being madepursuant to the Care Everywhere program and may not contain all information available regarding this patient. Last updated 18.[facility] Allergies Active Allergy Reactions Criticality Noted Date [...] 0.5 ML (IIV4) 05/13/2023,07/23/2016 TDAP (7yrs+) 05/13/2023,05/21/2013 Social History Tobacco Use Types Packs/Day Years [...] Sex Assigned at Female 07/17/2021 2:10 PM GRADING CLERK Gender Identity Female 07/17/2021 2:10 PM GRADING CLERK Sexual Orientation Straight 07/17/2021 2: 10 PM GRADING CLERK Last Filed Vital Signs Vital Sign Reading [...] Mass Index 22.78 05/13/2023 9:55 AM CDT Functional Status Functional Status Response Date of Assess ment Is person deaf or have serious hearing difficult y? No 09/04/2021 Is person blind or have serious difficulty seein g? No 09/04/2021 Does person have serious dif ficulty walking/climbing stairs? No 09/04/2021 Does person have difficulty dressing/bathing? No 09/04/2021 Does person have difficulty doing errands alone? No 09/04/2021 Cognitive Status Response Date of Assessm ent Does person have difficulty concentrating/remembering/making decisions? No 09/04/2021 Plan of Treatment Not on file Medical Devices Implanted Type Area Log Handling Equipment Operator Device Identifier Shelf Expiration Date Model / Serial / Lot Sys Ureth Supp Obtryx Midurethral Trnstr Implanted:Qty: 1 on 11/01/2021 by Arturo Arguello MD at [facility] [place] [employer] 09/16/2024 [id number] / / [id number] Procedures Procedure Name Priority Date/Time Associated Diagnosis Comments LIPID PROFILE Routine 05/13/2023 10:42 AM CDT Screening, ischemic heart disease MAMMO BILAT SCREENING W ADIEL Routine 10/03/2021 11:57 AM GRADING CLERK Screening breast examination HEPATITIS C ANTIBODY Routine 07/18/2021 12:08 PM GRADING CLERK Need for hepatitis C screening test HIV-1 HIV-2 ANTIBODY + HIV P24 AG PANEL Routine 07/18/2021 12:08 PM GRADING CLERK Screening for HIV without presence of risk [...] Resulting Agency Comment Lab Testing performed at: [facility] [address] [place] [address] [id number] Luiza Mcgarry DO LAB - CHEMISTRY OR DERABLES [facility] INSURANCE BILL [address] [place] [address] * MAMMO BILAT SCREENING W ADIEL (10/03/2021 11:57 AM GRADING CLERK) Anatomical Region Laterality Modality Breast Bilateral Mammography 10/04/2021 12:4 9 PM GRADING CLERK Impressions 10/04/2021 12:51 PM GRADING CLERK No mammographic evidence of malignancy. Recommendation: Resume routine yearly mammography schedule for women over age 40 or return sooner if clinically indicated. BI-RADS CATEGORY 1: NEGATIVE. *Reading Radiologist: Stephie Carranza on 10/04/2021 at 12:51 PM Narrative 10/04/2021 12:51 PM GRADING CLERK Bilateral mammography. Most recent comparison: There are no prior studies for comparison. History: Screening mammogram. Technique: Bilateral Breasts. Mammography views included: CC and MLO. Images interpreted with CAD. Following current [facility] protocol, 3D mammographic tomosynthesis images were obtained and reviewed on a dedicated viewing station. FINDINGS: Breast composition: Heterogeneously dense which may obscure small masses. No suspicious calcifications, masses or areas of architectural distortion. Luiza Mcgarry DO MAMMO ORDERABLES * HIV-1 HIV-2 ANTIBODY + HIV P24 AG PANEL (07/18/2021 12:08 PM GRADING CLERK) Pathologist [facility] HIV Screen 4th Generation w Reflex Non Reactive Non Reactive [facility] INSURANCE BILL Comment:FASTING Blood BLOOD SPECIMEN / Unknown 07/18/2021 12:08 PM GRADING CLERK 07/18/2021 Narrative Resulting Agency Comment Lab Testing performed at: [facility] [id number] Leisa Lemons APRNAFAR LAB - CHEMISTRY ORD ERABLES Performing Organization Address City/[facility] de Phone Number [facility] INSURANCE BILL [address] [place] [address] * HEPATITIS C ANTIBODY (07/18/2021 12:08 PM GRADING CLERK) [facility] Hepatitis C Antibody 0.1 0.0 - 0.9 s/co ratio [facility] INSURANCE BILL Comment: Negative: < 0.8 Indeterminate: 0.8 - 0.9 Positive: > 0.9 . The CDC recommends that a positive HCV antibody result be followed up with a HCV Nucleic Acid Amplification test (735184). FASTING Blood BLOOD SPECIMEN / Unknown 07/18/2021 12:08 PM GRADING CLERK 07/18/2021 Narrative Resulting Agency Comment Lab Testing performed at: [facility] [address] [facility] [id number] Leisa Lemons APRN-OPERATION AGENT LAB - CHEMISTRY ORD ERABLES Performing Organization Address City/State/[facility] Co de Phone Number [facility] INSURANCE BILL [address] [place] [address] from Last 3 Months or Most Recently Relevant to Health Maintenance Administered Medications Care Teams Cuff Turner Relationship Specialty Start Date End Date Luiza Mcgarry DO [address] [facility] [place] [address] PCP - General Internal Medicine 09/05/21 Janae Valentin MD [address] [place] [address] Interactive Multimedia Designer Obstetrics and Gynecology 08/31/21 Arturo Arguello MD [address] [place] [address] Consulting Physician Obstetrics and Gynecology 08/31/21 Rossana Mcdonald MD [address] [place] [address] Director Of Campus Recreation Gastroenterology 08/31/21
--- OUTSIDE RECORDS SUMMARY | 2024-10-06 10:59 | XMS_ITS | Clinical Summary ---
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 Gender Identity Not on file Sexual Orientation Not on file Plan of Treatment Health Maintenance Due Date Last Done Comments Hepatitis C Virus (HCV) Screening 1974 TdaP Immunization 1974 Hepatitis B Immunization (1 of 3 - 19+ 3-dose series) 1993 Pap Smear 1995 Cervical Cancer Screening (CCS) 2004 HPV/Cotest 2004 Discussion re Starting/Frequency of Mammograms 2014 Colonoscopy 2019 Colorectal Cancer Screening 2019 Influenza Immunization (#1) 2024 SARS-COV-2 Immunization ( season) 2024 08/03/2021, 10/12/2020, 09/13/2020 Cologuard 2024 Immunochemical Fecal Occult Blood 2024 Respiratory Syncytial Virus (RSV) Immunization (Adult) (1 - 1-dose 75+ series) 2049 Meningococcal Immunization (ACWY) Aged Out No longer eligible b ased on patient's age to complete this topic Pneumococcal Immunization Combined Aged Out No longer eligible b ased on patient's age to complete this topic Rotavirus Immunization Aged Out No lo nger eligible based on patient's age to complete this topic
--- OUTSIDE RECORDS SUMMARY | 2024-10-06 10:59 | XMS_ITS | Referral Summary ---
Author Organization [facility] Address [address] [place] [address] Care Team Providers Care Warp Spooler Name Role Phone Luiza Mcgarry Primary Care Prov ider Allergies Active Allergy Reactions Criticality Noted Date Comments Topiramate Other (See comments) Medium 09/05/2021 Tingling Medications SUMAtriptan (IMITREX) 100 mg tablet Take 100 mg by mouth every 2 hours as needed Active methylPREDNISol one (Medrol, Leighton,) 4 mg DosepackIndicat ions:Arm injury, right, initial encounter follow package directions 1 packet 2 Active Active Problems Problem Noted Date Diagnosed Date Lower GI bleed 05/17/2019 Assessment & Plan (05/17/2019 12:10 AM CDT): Patient presenting with 4 week history of intermittent abdominal pain, 6 episodes of bloody stools, and CT from outside hospital demonstrating colonic mural thickening extending from transverse colon to proximal sigmoid colon. Concerning for ulcerative colitis. Patient with family history of IBD. Hemoglobin stable. -will repeat CBC, BMP -pending stool studies; -per JAYSON if infectious studies return negative plan to start 60 mg IV Solu- Medrol -MR enterography ordered; NPO after midnight -private GI consult ordered and appreciate recommendations; per JAYSON patient to undergo colonoscopy Saturday Chronic migraine without aur a without status migrainosus, not intractable 05/26/2015 Assessment & Plan (05/17/2019 12:07 AM CDT): Patient presenting with her typical migraines. She denies history of aura. She endorses left-sided pain with light sensitivity. She received 2 L of IV fluids and Tylenol at outside hospital. Takes sumatriptan as at home and took last dose on 05/15 around 3:00 p.m.. - Tylenol p.r.n. -6 mg of sumatriptan subcutaneous and ibuprofen for 1 dose -continue to monitor Chronic neck pain 05/26/2015 Overview (02/07/2021): Right side , with nerve involvement Right side , with nerve involvement Seasonal allergies 05/26/2015 Overview (02/07/2021): Dust mites Dust mites Social History Tobacco Use Types Packs/Day Years Used Date Smoking Tobacco: Never Smokeless Tobacco: Never Comments No Sex and Gender Information Value Date Recorded Sex Assigned at Not on file Legal Sex Female 7:00 AM CDT Gender Identity Not on file Sexual Orientation Not on file Last Filed Vital Signs Vital Sign Reading Time Taken Comments Blood Pressure 138/92 07/23/2022 11:04 AM TANK BUILDER Pulse 89 07/23/2022 11:04 AM TANK BUILDER Temperature 36.9 C (98.4 F) 07/23/2022 11:04 AM TANK BUILDER Respiratory Rate 16 07/23/2022 11:04 AM TANK BUILDER Oxygen Saturation 100% 07/23/2022 11:04 AM TANK BUILDER Inhaled Oxygen Concentration - - Weight 65.5 kg (144 lb 8 oz) 07/23/2022 11:04 AM TANK BUILDER Height 172.7 cm (5' 8 ) 07/23/2022 11:04 AM TANK BUILDER Body Mass Index 21.97 07/23/2022 11:04 AM TANK BUILDER Plan of Treatment Not on file Procedures Procedure Name Priority Date/Time Associated Diagnosis Comments COLONOSCOPY 05/19/2019 12:52 PM CDT from Last 3 Months or Most Recently Relevant to Health Maintenance Results * COLONOSCOPY (05/19/2019 12:52 PM CDT) Anatomical Region Laterality Modality Other Narrative Procedure Note Early, Allison Becker MD - 05/19/2019 12:52 PM CDT [facility] Patient Name: Anabell Louie Procedure Date: 05/19/2019 12:52 PM Date of : 1975 Admit Type: Inpatient Age: 43 Gender: Female Attending MD: Allison Salazar M.D. Room: [facility] ROOM 9 Note Status: Finalized Procedure: Colonoscopy Indications: Abdominal pain, Hematochezia Referring MD: Providers: Allison Salazar M.D., Rubén Nielsen M.D. Medicines: Monitored Anesthesia Care Complications: No immediate complications. Estimated Blood Loss: Estimated blood loss: none. Procedure: Pre-Anesthesia Assessment: - Immediately prior to administration ofmedications, the patient was re-assessed for adequacy to receive sedatives. - The risks and benefits of the procedure and the sedation options and risks were discussed with the patient. All questions were answered and informed consent was obtained. The benefits, risks and alternatives of theprocedure and sedation were discussed and informed consent was obtained. All questions were answered. Please referto the signed informed consent document in the medical record. The scope was passed under direct vision.The Colonoscope was introduced through the anus and advanced to the terminal ileum. The colonoscopy was performed without difficulty. The patient toleratedthe procedure well. The quality of the bowel preparation was evaluated using the BBPS ([place] BowelPreparation Scale) with scores of: Right Colon = 3 (entiremucosa seen well with no residual staining, small fragmentsof stool or opaque liquid), Transverse Colon = 3(entire mucosa seen well with no residual staining, small fragments of stool or opaque liquid) and Left Colon= 3 (entire mucosa seen well with no residual staining, small fragments of stool or opaque liquid). Thetotal BBPS score equals 9. The bowel preparation used was polyethylene glycol (PEG). Bowel prep wasadministered using a split dose. The quality of the bowel preparation was good. Findings: The perianal and digital rectal examinations were normal. The terminal ileum appeared normal. A single (solitary) linear ulcer with surrouding erythema was foundin the sigmoid colon. No bleeding was present. No stigmata of recent bleeding were seen. The exam was otherwise without abnormality on direct and retroflexion views. Biopsies for histology were taken with a cold forceps for evaluationof microscopic colitis from the right colon, left colon, andrecto-sigmoid colon. Impression: - The examined portion of the ileum was normal. - A single (solitary) linear ulcer in the sigmoidcolon. - The examination was otherwise normal on direct and retroflexion views. - Biopsies were taken with a cold forceps for evaluation of microscopic colitis. Recommendation: - [facility] - Await pathology results. - NSAID cessation. - Further recommendations per inpatient consultteam. Attending Participation: I was present and participated during the entire procedure, including non-leija portions. Electronically signed by Allison Salazar MD Allison Salazar M.D. 05/19/2019 1:51:46 PM . Number of Addenda: 0 Note Initiated On: 05/19/2019 12:52 PM Recognized by the [place] [employer] for promoting quality in endoscopy us Allison Salazar MD ENDOSCOPY PROCEDURES Final Res ult from Last 3 Months or Most Recently Relevant to Health Maintenance Insurance [facility] Advance Directives For more information, please contact: [phone] * Full Code (Latest Code Status on File) Date Activated Date Inactivated Comments 05/16/2019 11:01 PM 05/19/2019 10:36 PM Care Teams Warp Spooler Relationship Specialty Start Date End Date Luiza Mcgarry DO [address] [place] [address] PCP - General Internal Medicine 02/06/22
--- OUTSIDE RECORDS SUMMARY | 2024-10-06 10:59 | XMS_ITS | Encounter Summary ---
Author Organization [facility] Address [address] [place] [address] Care Team Providers Care Associate Scientist Name Role Phone Janae Valentin MD Unavailable Arturo Arguello MD Unavailable [phone] Rossana Mcdonald MD Unavailable Unavailab Luiza Mcgarry DO Primary Care Provider + [phone] Luiza Mcgarry DO Unavailable [phone] Encounter Details Date Type Department Care Team (Late st Contact Info) Description 09/05/2021 Patient Outreach [facility] [address] [place] [address] Melanie Rivera, RN Social History Tobacco Use Types Packs/Day Years Used Date Smoking Tobacco: Never Smokeless Tobacco: Never Alcohol Use Standard Drinks/Week Comments Yes 0 (1 standard drink = 0.6 oz pur e alcohol) social PHQ-2 Answer Date Recorded PHQ2 TOTAL SCORE 1 09/05/2021 Sex and Gender Information Value Date Recorded Sex Assigned at Female 07/17/2021 2:10 PM DANCE CHOREOGRAPHER Gender Identity Female 07/17/2021 2:10 PM DANCE CHOREOGRAPHER Sexual Orientation Straight 07/17/2021 2: 10 PM DANCE CHOREOGRAPHER documented as of this encounter Functional Status Functional Status Response Date of [...] person have difficulty concentrating/remembering/making decisions? No 09/04/2021 documented as of this encounter Plan of Treatment Not on file documented as of this encounter Visit Diagnoses Not on filedocumented in this encounter Care Teams Associate Scientist Relationship Specialty Start Date End Date Luiza Mcgarry DO [address] [place] [phone] PCP - General Internal Medicine 09/05/21 Luiza Mcgarry DO [address] [place] [phone] PCP - Attributed-[employer] 11/24/21 06/05/22 Janae Valentin MD [facility] [place] [address] [place] [phone] Civil Defense Director Obstetrics and Gynecology 08/31/21 Arturo Arguello MD [address] [place] [address] Consulting Physician Obstetrics and Gynecology 08/31/21 Rossana Mcdonald MD [facility] [address] [place] [address] Principal Technical Architect Gastroenterology 08/31/21 documented as of this encounter
--- OUTSIDE RECORDS SUMMARY | 2024-10-06 10:59 | XMS_ITS | Clinical Summary ---
Author Organization [facility] Address [address] [place] [address] Care Team Providers Care Helicopter Mechanic Name Role Phone Luiza Mcgarry Primary Care [...] 05/26/2015 Overview (02/07/2021): Dust mites Dust mites Surgical History Surgery Date Site/Laterality Comments COLONOSCOPY EXPLORATORY LAPAROTOMY DILATION AND CURETTAGE OF UTERUS ABDOMINAL SURGERY Medical History Medical History Date Comments Liver lesion Migraines Family History Medical History Relation Name Comments Colon cancer Maternal Grandmother Arthritis Other Heart disease Other Hypertension Other Mental illness Other Relation Name Status Comments Maternal Grandmother Other Social History Tobacco Use Types Packs/Day Years Used Date Smoking Tobacco: Never Smokeless Tobacco: Never Comments No Sex and Gender Information Value Date Recorded Sex Assigned at Not on file Legal Sex Female 7:00 AM CDT Gender Identity Not on file Sexual Orientation Not on file Obstetrics History Last Filed Vital Signs Vital Sign Reading Time Taken Comments Blood Pressure 138/92 07/23/2022 11:04 AM HRIS MANAGER Pulse 89 07/23/2022 11:04 AM HRIS MANAGER Temperature 36.9 C (98.4 F) 07/23/2022 11:04 AM HRIS MANAGER Respiratory Rate 16 07/23/2022 11:04 AM HRIS MANAGER Oxygen Saturation 100% 07/23/2022 11:04 AM HRIS MANAGER Inhaled Oxygen Concentration - - Weight 65.5 kg (144 lb 8 oz) 07/23/2022 11:04 AM HRIS MANAGER Height 172.7 cm (5' 8 ) 07/23/2022 11:04 AM HRIS MANAGER Body Mass Index 21.97 07/23/2022 11:04 AM HRIS MANAGER Plan of Treatment Health Maintenance Due Date Last Done Comments Breast Cancer Screening-Mammogram 1975 Cervical Cancer Screening 1975 Depression Screening 1975 Hepatitis C Screening 1975 Hepatitis B Screening 1992 Regular Well Visit/Exam 18-64 1992 DTaP/Tdap/Td Vaccine (2 - Td or Tdap) 05/21/2023 05/21/2013 Covid-19 Vaccine (5 - 2023- season) 2024 08/03/2021, 05/04/2021, 10/12/2020, Additional history exists Influenza Vaccine (#1) 2024 , 07/23/2016, 08/26/2014, Additional history exists Zoster Vaccine (1 of 2) 2024 Colon Cancer Screening-Colonoscopy 05/19/2029 05/19/2019 Pneumococcal vaccine <65 Aged Out No longer eligible based on patient's age to complete this topic Procedures Procedure Name Priority Date/Time Associated Diagnosis Comments COLONOSCOPY 05/19/2019 12:52 PM CDT from Last 3 Months or Most Recently Relevant to Health Maintenance Results * COLONOSCOPY (05/19/2019 12:52 PM CDT) Anatomical Region Laterality Modality Other Narrative Procedure Note Allison Salazar MD - 05/19/2019 12:52 PM CDT [facility] Patient Name: Anabell Louie Procedure Date: 05/19/2019 12:52 PM Date of : 1975 Admit Type: Inpatient Age: 43 Gender: Female Attending MD: Allison Salazar M.D. Room: [facility] ROOM 9 Note Status: Finalized Procedure: [...] bowel preparation was evaluated using the BBPS ([place] BowelPreparation Scale) with scores of: Right Colon [...] On: 05/19/2019 12:52 PM Recognized by the [place] [employer] for promoting quality in endoscopy us Allison Salazar MD ENDOSCOPY PROCEDURES Final Res ult from Last 3 Months or Most Recently Relevant to Health Maintenance Insurance [facility] Advance Directives For more information, please contact: [phone] * Full Code (Latest Code Status on File) Date Activated Date Inactivated Comments 05/16/2019 11:01 PM 05/19/2019 10:36 PM Care Teams Helicopter Mechanic Relationship Specialty Start Date End Date Luiza Mcgarry DO [address] [place] [address] PCP - General Internal Medicine 02/06/22
[2024-10-11 18:44] LABS: Testosterone Free 5.9 pg/mL (0.1-6.4); Testosterone Total 44 ng/dL (2-45)
== END 2024-10-06 09:52 | disposition home or self-care (01) ==
DX: R68.82 Decreased libido (principal)
CPT/HCPCS: 36415; 84402; 84403

== ENCOUNTER 2025-03-18 00:29 | Day surgery (SDC) | payer OTHER, SELFPAY ==
[2025-03-05 09:21] VITALS: BMI 25.1
--- OUTSIDE RECORDS SUMMARY | 2025-03-18 00:33 | XMS_ITS | Clinical Summary ---
Author Organization [facility] [employer] Address [address] [address] Care Team Providers Care Landscape Specialist Name Role Phone Janae Valentin MD Unavailable Arturo Arguello MD Unavailable [phone] Rossana Mcdonald MD Unavailable Unavailab Regina Langford MD Primary Care Provider Source Comments [facility] [facility],non-owned Affiliates and Associated Physician Practices is amultiple site organization consisting of ambulatory clinics and hospital sitesin [place], [place], [place] and [place]. This disclosure is being madepursuant to the Care Everywhere program and may not contain all information available regarding this patient. Last updated 18.[facility] [facility] Allergies Active Allergy Reactions Criticality Noted Date Comments Topiramate Other Medium 09/05/2021 Tingling Medications * Be aware that medications may not be up to date on this document. Alwaysverify current medications with the patient. Multiple Vitamin (MULTIVITAMIN PO) Take 1 tablet by mouth once daily Active Magnesium 400 MGIndications:He lps with constipation Take by mouth 2 times daily as needed Reasons: Helps with constipation Active tretinoin (RETIN-A) 0.025 % creamIndications :Acne vulgaris Pea sized amount to entire face at night. 30 days supply. 20 g 11 2 Active Additional Information Patient taking differently: Topical PRN, Pea sized amount to entire face at night. 30 days supply., Reported on 05/13/2023 Loteprednol Etabonate 0.25 % SUSP 1 drop by Ophthalmic route 4 times daily Active propranolol (Inderal) 10 MG tablet TAKE 1 TABLET BY MOUTH EVERY 8 HOURS NEEDED FOR ANXIETY AND FOR INSOMNIA AND FOR PALPITATIONS 90 tablet 5 Active hydrOXYzine HCl (Atarax) 25 MG tablet Take 1 (one) tablet by mouth 4 times daily as needed (anxiety) 30 tablet 5 Active estradiol (Estrace) 0.1 MG/GM vaginal cream APPLY TO VULVA AND VAGINA 1 GM THREE TIMES PER WEEK 5 Active estradiol (Vivelle-Dot) 0.1 MG/24HR patch 1 (one) patch Two times a week Active Progesterone 200 MG capsule TAKE 1 CAPSULE BY MOUTH EVERY DAY AT BEDTIME FOR 30 DAYS 5 Active nitrofurantoin macrocrystal (Macrodantin) 50 MG capsule PRN 5 Active testosterone 0.1% CREA compd cream Apply to affected area once daily 0.4% Active SUMAtriptan (Imitrex) 100 MG tablet Take medication at the onset of migraine, may repeat in 2 hours 9 tablet 5 5 Active ondansetron, disintegrating, (Zofran ODT) 4 MG tablet Take 1 (one) tablet by mouth every 6 hours as needed for Nausea/Vomiting Allow tablet to dissolve on the tongue 30 tablet 5 Active Active Problems Problem Noted Date Diagnosed [...] abdominal CT in 2019 and MRI 09/2021 Insomnia 09/05/2021 Esophagitis 09/05/2021 Overview (12/13/2021): -EGD [...] collapse 11/03/2021 022 Post-operative pain 11/03/2021 12/13/19 Healthcare maintenance 09/05/202112/03 Overview (09/05/2021): -annual preventative visit done: 09/05/21 -colonoscopy 2019: no polyps. Repeat every 5 years for family hx. Pain of breast 03/19/2016 12/12/2021 Symptoms involving urinary system 03/19/2016 12/13/2021 YESENIA (stress urinary incontinence, female) 12/13/2021 POP-Q stage 2 cystocele 04/27 Overview (12/13/2021): S/p surgery 10/2021 POP-Q stage 2 rectocele 04/27 Uterovaginal prolapse 2021 Overview (12/13/2021): S/p surgery 10/2021 Immunizations Immunization Administration Dates Next Due INFLUENZA VACCINE, TRIV. [...] Never Smokeless Tobacco: Never Tobacco Cessation:Counseling Given: No Alcohol Use Standard Drinks/Week Comments Yes 1 (1 standard drink = 0.6 oz pur [...] Answer Date Recorded Patient Health Questionnaire-2 Score 0 12/03/2024 Hunger Vital Sign Answer Date Recorded Within the past 12 months, y ou worried that your food would run out before you got the money to buy more. Never true 11/02/19 Within the past 12 months, t he food you bought just didn't last and you didn't have money to get more. 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 Not on file Not on file Not on file Last Filed Vital Signs Vital Sign Reading Time Taken Comments Blood Pressure 124/84 12/03/2024 3:27 PM CDT Pulse 89 12/03/2024 3:27 PM CDT Temperature 36.4 C (97.6 F) 12/03/2024 3:27 PM CDT Respiratory Rate 16 01/30/2022 9:51 AM CDT Oxygen Saturation 99% 12/03/2024 3:27 PM CDT Inhaled Oxygen Concentration - - Weight 75.5 kg (166 lb 6.4 oz) 12/03/2024 3:27 P M CDT Height 172.7 cm (5' 8) 12/03/2024 3:27 PM CDT Body Mass Index 25.3 12/03/2024 3:27 PM CDT Plan of Treatment Health Maintenance Due Date Last Done Comments COLOGUARD (AGES 45-75) - COLON CA SCREENING 1974 CT COLONOGRAPHY - COLON CA SCREENING 1974 FIT - COLON CA SCREENING 1974 FLEX SIG - COLON CA SCREENING 1974 MAMMOGRAM 10/03/2022 10/03/2021 COVID-19 VACCINE ( - season) 2024 05/04/2021, 10/12/2020, 09/13/2020 PNEUMOCOCCAL VACCINE 50+ (1 of 1 - PCV) 2024 ZOSTER VACCINE (1 of 2) 2024 INFLUENZA VACCINE (#1) 2025 , 07/18/2021, 07/23/2016, Additional history exists SCREENING FOR DIABETES 05/13/2026 , 12/12/2021, 11/03/2021, Additional history exists PAP with HPV 08/15/2026 08/15/2021 LIPID TESTING 05/13/2028 05/13/2023, 08/26, 07/18/2021 COLON MONITORING 05/19/2029 05/19/2019 COLONOSCOPY - COLON CA SCREENING 05/19/2029 05/19/2019, 05/19/2019 (Done Outside Per Report) Colorectal Cancer Screening 05/19/2029 DTAP/TDAP/TD VACCINES (3 - Td or Tdap) 05/13/2033 05/13/2023, 05/21/2013 HEPATITIS C SCREENING Completed 07/18/2021 HIV SCREENING Completed 07/18/2021 DEPRESSION SCREENING Completed 12/03/2024, 05/13/2023, 12/26/2021 HEPATITIS B VACCINE Discontinued HIB VACCINE Aged Out No longer eligi ble based on patient's age to complete this topic HPV VACCINE Aged Out No longer eligi ble based on patient's age to complete this topic MENINGOCOCCAL (Group B) VACCINE SHARED DECISION-MAKING Aged Out No longer eligible based on patient's age to complete this topic MENINGOCOCCAL GROUPS A/C/Y/W VACCINE Aged Out No longer eligible based on patient's age to complete this topic Medical Devices Implanted Type Area Assistant Professor Of Drama Device Identifier Shelf Expiration Date Model / Serial / Lot Sys Ureth Supp Obtryx Midurethral Trnstr Implanted:Qty: 1 on 11/01/2021 by Arturo Arguello MD at [facility] 09/16/2024 [id number] / / [id number] Procedures Procedure Name Priority Date/Time Associated Diagnosis Comments COMPREHENSIVE METABOLIC PANEL Routine 05/13/2023 10:42 AM CDT Diabetes mellitus screening LIPID PROFILE Routine 05/13/2023 10:42 AM CDT Screening, ischemic heart disease MAMMO BILAT SCREENING W ADIEL Routine 10/03/2021 11:57 AM HANDS ASSEMBLER Screening breast examination PAP IG LB +HPV APTIMA REFLEX 16,18/45 FOR HR POS Routine 08/15/2021 10:47 AM HANDS ASSEMBLER Well woman exam with routine gynecological exam HEPATITIS C ANTIBODY Routine 07/18/2021 12:08 PM HANDS ASSEMBLER Need for hepatitis C screening test HIV-1 HIV-2 ANTIBODY + HIV P24 AG PANEL Routine 07/18/2021 12:08 PM HANDS ASSEMBLER Screening for HIV without presence of risk factors from Last 3 Months or Most Recently Relevant to Health Maintenance Results * (ABNORMAL) COMPREHENSIVE METABOLIC PANEL (05/13/2023 10:42 AM CDT) Glucose 85 70 - 105 mg/dL [facility] [...] Resulting Agency Comment Lab Testing performed at: [address] [phone] us Luiza Mcgarry DO LAB - CHEMISTRY ORDERABLES Final Result Performing Organization Address City/[facility]/ZIP Co de Phone Number [facility] INSURANCE BILL [address] [place] [address] * (ABNORMAL) LIPID PROFILE (LIPID PANEL) (05/13/2023 [...] Resulting Agency Comment Lab Testing performed at: [address] [phone] us Luiza Mcgarry DO LAB - CHEMISTRY ORDERABLES Final Result Performing Organization Address City/[facility]/ZIP Co de Phone Number [facility] INSURANCE BILL [address] [place] [address] * MAMMO BILAT SCREENING W ADIEL (10/03/2021 11:57 AM HANDS ASSEMBLER) Anatomical Region Laterality Modality Breast Bilateral Mammography 10/04/2021 12:4 9 PM HANDS ASSEMBLER Impressions 10/04/2021 12:51 PM HANDS ASSEMBLER No mammographic evidence of malignancy. Recommendation: Resume routine yearly mammography schedule for women over age 40 or return sooner if clinically indicated. BI-RADS CATEGORY 1: NEGATIVE. *Reading Radiologist: Stephie Carranza on 10/04/2021 at 12:51 PM Narrative 10/04/2021 12:51 PM HANDS ASSEMBLER Bilateral mammography. Most recent comparison: There are no prior studies for comparison. History: Screening mammogram. Technique: Bilateral Breasts. Mammography views included: CC and MLO. Images interpreted with CAD. Following current [facility] protocol, 3D mammographic tomosynthesis images were obtained and reviewed on a dedicated viewing station. FINDINGS: Breast composition: Heterogeneously dense which may obscure small masses. No suspicious calcifications, masses or areas of architectural distortion. us Luiza Mcgarry DO MAMMO ORDERABLES Final Res ult * PAP IG LB +HPV APTIMA REFLEX 16,18/45 FOR HR POS (08/15/2021 10:47 AM HANDS ASSEMBLER) Diagnosis [facility] INSURANCE BILL Comment: NEGATIVE FOR INTRAEPITHELIAL LESION OR MALIGNANCY. THIS SPECIMEN WAS RESCREENED PART OF OUR TRANSPORTATION MAINTENANCE OPERATOR PROGRAM. Specimen Adequacy [facility] INSURANCE BILL Comment: Satisfactory for evaluation. Endocervical and/or squamous metaplastic cells (endocervical component) are present. Clinician Provided ICD10 [facility] INSURANCE BILL Comment:Z01.419 Performed by [facility] INSURANCE BILL Comment:Raymond Orr , Technology Integration Specialist (ASCP) QC Reviewed by [facility] INSURANCE BILL Comment:Lolis Matias dylan Technology Integration Specialist (ASCP) Comment . [facility] INSURANCE BILL Note [...] ENTIRE ENDOCERVIX / Unknown 08/15/2021 10:47 AM HANDS ASSEMBLER 08/16/[address] [facility] - 08/22/2021 9:09 AM HANDS ASSEMBLER No. of containers..01 ThinPrep Vial Resulting Agency Comment Lab Testing performed at: [address] [place] [id number] Janae Valentin MD LAB - PATHOLOGY/CYTOLOGY ORDERAB LES Final Result [facility] INSURANCE BILL [address] [place] [address] * HIV-1 HIV-2 ANTIBODY + HIV P24 AG PANEL (07/18/2021 12:08 PM HANDS ASSEMBLER) Pathologist [facility] HIV Screen 4th Generation w Reflex Non Reactive Non Reactive [facility] Comment:FASTING Blood BLOOD SPECIMEN / Unknown 07/18/2021 12:08 PM HANDS ASSEMBLER 07/18/2021 Narrative Resulting Agency Comment [facility] performed at: [facility] [address] [facility] [id number] Leisa Lemons FASHION DESIGNER-INSTRUCTIONAL SUPPORT ASSISTANT LAB - CHEMISTRY ORDERABLES Final Result Performing Organization Address [facility] Co de Phone Number [facility] INSURANCE BILL [address] [place] [address] * HEPATITIS C ANTIBODY (07/18/2021 12:08 PM HANDS ASSEMBLER) Pathologist [facility] Hepatitis C Antibody 0.1 0.0 - 0.9 s/co ratio [facility] B[facility] Comment: Negative: < 0.8 Indeterminate: 0.8 - 0.9 Positive: > 0.9 . The CDC recommends that a positive HCV antibody result be followed up with a HCV Nucleic Acid Amplification test ([id number]). FASTING Blood BLOOD SPECIMEN / Unknown 07/18/2021 12:08 PM HANDS ASSEMBLER 07/18/2021 Narrative Resulting Agency Comment Lab Testing performed at: [address] [id number] Leisa Cristo FASHION DESIGNER-INSTRUCTIONAL SUPPORT ASSISTANT LAB - CHEMISTRY ORDERABLES Final Result [facility] INSURANCE BILL [address] [place] [address] from Last 3 Months or Most Recently Relevant to Health Maintenance Insurance [employer] [facility] [facility] Care Teams Landscape Specialist Relationship Specialty Start Date End Date Regina Tierney MD [address] [place] [address] PCP - General Internal Medicine 12/03/24 Janae Valentin MD [address] [place] [address] [place] [phone] Silk Winding Machine Operator Obstetrics and Gynecology 08/31/21 Arturo Arguello MD [address] [place] [address] Consulting Physician Obstetrics and Gynecology 08/31/21 Rossana Mcdonald MD [facility] [address] [place] [address] Skilled Nursing Facilities Professional Gastroenterology 08/31/21
--- OUTSIDE RECORDS SUMMARY | 2025-03-18 00:33 | XMS_ITS | Referral Summary ---
Author Organization [facility] Address [address] [place] [address] Care Team Providers Care Editor Index Name Role Phone Luiza Mcgarry Primary Care [...] Comments Blood Pressure 138/92 07/23/2022 11:04 AM PIANO CASE MAKER Pulse 89 07/23/2022 11:04 AM PIANO CASE MAKER Temperature 36.9 C (98.4 F) 07/23/2022 11:04 AM PIANO CASE MAKER Respiratory Rate 16 07/23/2022 11:04 AM PIANO CASE MAKER Oxygen Saturation 100% 07/23/2022 11:04 AM PIANO CASE MAKER Inhaled Oxygen Concentration - - Weight 65.5 kg (144 lb 8 oz) 07/23/2022 11:04 AM PIANO CASE MAKER Height 172.7 cm (5' 8) 07/23/2022 11:04 AM PIANO CASE MAKER Body Mass Index 21.97 07/23/2022 11:04 AM PIANO CASE MAKER Plan of Treatment Not on file Procedures [...] Female Attending MD: Allison Salazar M.D. Room: [facility] ENDOSCOPY ROOM 9 Note Status: Finalized Procedure: [...] bowel preparation was evaluated using the BBPS ([place] BowelPreparation Scale) with scores of: Right Colon [...] On: 05/19/2019 12:52 PM Recognized by the [place] [employer] for promoting quality in endoscopy us Allison Salazar MD ENDOSCOPY PROCEDURES Final Res ult from Last 3 Months or Most Recently Relevant to Health Maintenance Insurance [facility] Advance Directives For more information, please contact: [phone] * Full Code (Latest Code Status on File) Date Activated Date Inactivated Comments 05/16/2019 11:01 PM 05/19/2019 10:36 PM Care Teams Editor Index Relationship Specialty Start Date End Date Luiza Mcgarry DO [address] [place] [address] PCP - General Internal Medicine 02/06/22
--- OUTSIDE RECORDS SUMMARY | 2025-03-18 00:33 | XMS_ITS | Encounter Summary ---
Author Organization [facility] Address [address] [place], [place] [address] [address] Care Team Providers Care Cleat Thrower Name Role Phone Janae Valentin MD Unavailable Arturo Arguello MD Unavailable [phone] Rossana Mcdonald MD Unavailable Unavailab Luiza Mcgarry DO Primary Care Provider [phone] Luiza Mcgarry DO Unavailable [phone] Regina Tierney MD Primary Care Provider Encounter Details Date Type Department Care Team (Late st Contact Info) Description 09/05/2021 Patient Outreach [facility] ENDOSCOPY [address] [place] [address] Melanie Rivera, RN Social History Tobacco Use Types Packs/Day Years Used Date Smoking Tobacco: Never Smokeless Tobacco: Never Alcohol Use Standard Drinks/Week Comments Yes 0 (1 standard drink = 0.6 oz pur e alcohol) social PHQ-2 Answer Date Recorded PHQ2 TOTAL SCORE 1 09/05/2021 Comments No Sex and Gender Information Value Date Recorded Sex Assigned at Female 07/17/2021 2:10 PM WAREHOUSE SELECTOR Legal Sex Female 4:08 AM CDT Gender Identity Female 07/17/2021 2:10 PM WAREHOUSE SELECTOR Sexual Orientation Straight 07/17/2021 2: 10 PM WAREHOUSE SELECTOR 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 Answer Date of Assessment Author No 09/04/2021 2:09 PM Sona Bertrand RN * Is person blind or have serious difficulty seeing? Answer Date of Assessment Author No 09/04/2021 2:09 PM Sona Bertrand RN * Does person have serious difficulty walking/climbing stairs? Answer Date of Assessment Author No 09/04/2021 2:09 PM Sona Bertrand RN * Does person have difficulty dressing/bathing? Answer Date of Assessment Author No 09/04/2021 2:09 PM Sona Bertrand RN * Does person have difficulty doing errands alone? Answer Date of Assessment Author No 09/04/2021 2:09 PM Sona Bertrand RN documented as of this encounter Mental Status * Does person have difficulty concentrating/remembering/making decisions? Answer Entry Date Author No 09/04/2021 2:09 PM Sona Bertrand RN documented in this encounter Plan of Treatment Not on file documented as of this encounter Visit Diagnoses Not on filedocumented in this encounter Care Teams Cleat Thrower Relationship Specialty Start Date End Date Luiza Mcgarry DO [address] [place] [address] PCP - General Internal Medicine 09/05/21 12/02/24 Luiza Mcgarry DO [address] [place] [phone] PCP - Attributed-[employer] 11/24/21 06/05/22 Regina Tierney MD [address] [place] [address] PCP - General Internal Medicine 12/03/24 Janae Valentin MD [address] [place] [address] [place] [phone] Sintering Plant Supervisor Obstetrics and Gynecology 08/31/21 Arturo Arguello MD [address] [facility] [address] [place] [address] Consulting Physician Obstetrics and Gynecology 08/31/21 Rossana Mcdonald MD [address] [place] [address] [address] [place] [address] Invoice Coder Gastroenterology 08/31/21 documented as of this encounter
--- OUTSIDE RECORDS SUMMARY | 2025-03-18 00:33 | XMS_ITS | Clinical Summary ---
Author Organization [facility] Care Team Providers Care Transformation Coach Name Role Phone Unavailable Primary Care Provider Unavailabl e Social History Tobacco Use Types Packs/Day Years Used Date Smoking Tobacco: Never Assessed Comments Unknown Sex and Gender Information Value Date Recorded Sex Assigned at Not on file Legal Sex Female 12:41 PM CLAY MIXER Gender Identity Not on file Sexual Orientation [...]
--- OUTSIDE RECORDS SUMMARY | 2025-03-18 00:33 | XMS_ITS | Clinical Summary ---
Author Organization [facility] Address [address] [place] [address] Care Team Providers Care Multimedia Assistant Name Role Phone Luiza Mcgarry Primary Care [...] Comments Blood Pressure 138/92 07/23/2022 11:04 AM COLLECTION SYSTEMS FOREMAN Pulse 89 07/23/2022 11:04 AM COLLECTION SYSTEMS FOREMAN Temperature 36.9 C (98.4 F) 07/23/2022 11:04 AM COLLECTION SYSTEMS FOREMAN Respiratory Rate 16 07/23/2022 11:04 AM COLLECTION SYSTEMS FOREMAN Oxygen Saturation 100% 07/23/2022 11:04 AM COLLECTION SYSTEMS FOREMAN Inhaled Oxygen Concentration - - Weight 65.5 kg (144 lb 8 oz) 07/23/2022 11:04 AM COLLECTION SYSTEMS FOREMAN Height 172.7 cm (5' 8) 07/23/2022 11:04 AM COLLECTION SYSTEMS FOREMAN Body Mass Index 21.97 07/23/2022 11:04 AM COLLECTION SYSTEMS FOREMAN Plan of Treatment Health Maintenance Due Date Last Done Comments Breast Cancer Screening-Mammogram 1974 Cervical Cancer Screening 1974 Depression Screening 1974 Hepatitis C Screening 1974 Hepatitis B Screening 1992 Regular Well Visit/Exam 18-64 1992 DTaP/Tdap/Td Vaccine (2 - Td or Tdap) 05/21/2023 05/21/2013 Covid-19 Vaccine (5 - season) 2024 08/03/2021, 05/04/2021, 10/12/2020, Additional history exists Zoster Vaccine (1 of 2) 2024 Influenza Vaccine (Season Ended) 2025 07/18/2021, 07/23/2016, 08/26/2014, Additional history exists Colon Cancer Screening-Colonoscopy 05/19/2029 05/19/2019 Pneumococcal vaccine [...] Female Attending MD: Allison Salazar M.D. Room: [facility] ENDOSCOPY ROOM 9 Note Status: [...] bowel preparation was evaluated using the BBPS ([place] BowelPreparation Scale) with scores of: Right Colon [...] On: 05/19/2019 12:52 PM Recognized by the [place] [employer] for promoting quality in endoscopy us Allison Salazar MD ENDOSCOPY PROCEDURES Final Res ult from Last 3 Months or Most Recently Relevant to Health Maintenance Insurance [facility] Advance Directives For more information, please contact: [phone] * Full Code (Latest Code Status on File) Date Activated Date Inactivated Comments 05/16/2019 11:01 PM 05/19/2019 10:36 PM Care Teams Multimedia Assistant Relationship Specialty Start Date End Date Luiza Mcgarry DO [address] [place] [address] PCP - General Internal Medicine 02/06/22
--- OUTSIDE RECORDS SUMMARY | 2025-03-18 00:33 | XMS_ITS | Data Portability ---
Author Organization [facility] in Office Address [address] [place] [address] Assessment Encounter Date Assessment Date Assessment LastModified by Organization Details LastModified Time 01/27/2024 01/27/2024 I spent 35 minutes of vzxd-qu-bhif counselling and care coordination time with the patient. This includes reviewing medical records (medical, surgical, family and social history); updating medication and allergy information in the electronic health record; and ordering labs, medications, and education materials to continue patient care. [email or web address] Not available 01/26/2024 07:07:28 05/26/2024 05/26/2024 I spent 15 minutes of lgkw-ec-xtxl counselling and care coordination time with the patient. This includes reviewing medical records (medical, surgical, family and social history); updating medication and allergy information in the electronic health record; and ordering labs, medications, and education materials to continue patient care. [email or web address] Not available 05/26/2024 08:05:10 07/27/2024 07/27/2024 I spent 43 minutes of babq-bs-yfiv counselling and care coordination time with the patient. This includes reviewing medical records (medical, surgical, family and social history); updating medication and allergy information in the electronic health record; and ordering labs, medications, and education materials to continue patient care. [email or web address] Not available 07/27/2024 11:54:05 11/02/2024 11/02/2024 I spent 48 minutes of dlwy-ho-zeov counselling and care coordination time with the patient. This includes reviewing medical records (medical, surgical, family and social history); updating medication and allergy information in the electronic health record; and ordering labs, medications, and education materials to continue patient care. [email or web address] Not available 11/02/2024 17:59:55 Plan of Treatment Reminders Order Date Submit Date Provider Last Modified By Organization Details Last Modified Time Details Appointments [id number] 2024 02:00P M TIFFANY KEEN, CLOTH DES[employer]ING RANGE OPERATOR CHIEF Not available Not available Not available [id number] 2024 02:30P M TIFFANY KEEN [employer]OTH [employer]ING [employer]ANGE OPERATOR CHIEF Not available Not available Not available Lab testoster one, free + total, serum [address] [place] [address] (Lab), [address] [place] [address], [address], 12/11/2024 00:04:33 shbg (sex hormone-b inding globulin) , serum [address] [place] [address] (Lab), [address] [place] [address], [address], 08/10/2024 12:11:41 testoster one, free, serum [address] [place] [address] (Lab), [address] [place] [address], [address], 08/10/2024 12:11:41 testoster one, total, serum [address] [place] [address] (Lab), [address] [place] [address], [place], [address], 08/10/2024 12:11:41 amylase + lipase, serum [address] [place] [address] (Lab), [address] [place] [address], [address], 05/07/2024 14:22:41 insulin, serum [address] [place] [address] (Lab), [address] [place] [address], [address], 05/07/2024 14:22:49 vitamin B12 + folate, serum or blood [address] (Lab), [address] [place] [address] [place], [place], [address], 05/07/2024 14:22:29 CMP, serum or plasma [address] (Lab), [address] [place] [address], [place], [address], 05/07/2024 14:21:23 lipid panel, serum [address] (Lab), [address] [place] [address] [place], [place], [address], 05/07/2024 14:21:31 HbA1c (hemoglob in A1c), blood [address] [place] [address] (Lab), [address] [place] [address], [address], 05/07/2024 14:21:45 T3, free, serum or plasma [address] (Lab), [address] [place] [address], [place], [address], 05/07/2024 14:22:02 vitamin D, 25-hydrox y, total, serum [address] (Lab), [address] [place] [address], [address], 05/07/2024 14:22:10 TSH + free T4, serum [address] (Lab), [address] [place] [address] [place], [place], [address], 05/07/2024 14:22:20 Referral None recorded. Procedures None recorded. Surgeries None recorded. Imaging None recorded. Medication Orders Estrace 0.01% (0.1 mg/gram) vaginal cream 2024 025 [facility], [address] [address], [place], [address], 11/02/2024 18:08:15 Prometriu m 200 mg capsule 2024 025 [email or web address] [facility] [address], [address], 11/02/2024 18:08:20 estradiol 0.1 mg/24 hr semiweekl y transderm al patch 2024 025 [facility] [address], [address], 11/02/2024 18:08:14 Testoster one Compound Pump (4mg/gm) [facility] [address], [address], 11/02/2024 18:08:27 Estrace 0.01% (0.1 mg/gram) vaginal cream 2023 024 [facility] [address], [address], 07/27/2024 12:20:39 estradiol 0.075 mg/24 hr semiweekl y transderm al patch 2023 025 [facility] [address], [address], 03/17/2025 17:07:02 Prometriu m 200 mg capsule 2023 024 [email or web address] [facility] [address], [address], 07/27/2024 12:20:45 Testoster one Compound Pump (4mg/gm) [facility] [address] [place], [address], 07/27/2024 12:20:53 nitrofura ntoin macrocrys romaine 50 mg capsule 2023 024 BRAIN [facility] [address] In [facility], [address] [address], [place], [address], 07/27/2024 12:20:38 Bundle B: 0.5 mL/week - [facility] [address] (Clinic Pay Unmonitored Fax), [address], [place], [address], 07/27/2024 11:47:43 Semagluti de [facility] 2023 [address] [place] [address] [facility], [address] [place] [address], [address], 03/17/2025 17:06:28 Patient TargetsNo targets recorded. Patient Instructions Encounter Date Encounter Id Patient Instructions Last Modified By Organization Details Last Modified Time 01/27/2024 [id number] Any requested follow-up visits are listed below in the Plan of Care section. Go directly to the [facility] logger at [email or web address] to book a time. [email or web address] Not available 01/26/2024 07:06:40 It was a pleasur e to meet with you today! We discussed your health concerns related to your hormone therapy and weight loss. --------- Your Care Plan --------- Together, we decided that you would: - [...] You can then message me in the [employer] portal and I can resend everything. - [...] you for trusting us with your care! [email or web address] Not available 01/27/2024 17:07:09 05/26/2024 [id number] Any requested follow-up visits are listed below in the Plan of Care section. Go directly to the [facility] logger at [email or web address] to book a time. [email or web address] Not available 05/26/2024 08:04:37 It was a pleasur e to meet with you today! We discussed your health concerns related to weight management, anxiety, and sexual dysfunction. --------- Your Care Plan --------- Together, we decided that you would: - [...] care! [email or web address] Not available 05/26/2024 10:44:15 07/27/2024 [id number] Any requested follow-up visits are listed below in the Plan of Care section. Go directly to the [facility] logger at [email or web address] to book a time. [email or web address] Not available 07/27/2024 11:06:18 It was a pleasur e to meet with you today! We discussed your health concerns related to low libido, fatigue, and recurring urinary tract infections (UTIs). --------- Your Care Plan --------- Together, we decided that you would: - [...] desire and satisfaction. - There is little adjunct faculty for medical terminology data on the safety of testosterone in [...] blood levels frequently. - Please contact your [facility] clinician with any concerns. If you start [...] individually or in a product like [employer]) [email or web address] Not available 07/27/2024 12:18:07 11/02/2024 [id number] Any requested follow-up visits are listed below in the Plan of Care section. Go directly to the [facility] logger at [email or web address] to book a time. [email or web address] Not available 11/02/2024 15:47:32 It was a pleasur e to meet with you today! We discussed your health concerns related to menopausal symptoms, weight gain, sleep disturbances, migraines, dry eyes, and sexual health. --------- Your Care Plan --------- Together, we decided that you would: - Continue using the testosterone cream at 2 pumps per day. This medication is intended to help improve your energy levels and libido. Your recent lab results showed that your testosterone levels have increased, which indicates that your body is absorbing the medication well. - Increase your estrogen patch dosage. This adjustment is intended to help manage your menopausal symptoms such as hot flashes, night sweats, and fatigue. We will reassess this in about 6-8 weeks to see if there's an improvement in these symptoms. - Continue using the vaginal estrogen cream twice a week. This medication is intended to help manage vaginal dryness. You may consider reducing the use of additional moisturizers to see if the estrogen cream alone is sufficient. - Continue using the prophylactic antibiotic as prescribed. This medication is intended to prevent recurrent urinary tract infections (UTIs). - Consider resuming counseling. This could potentially help manage the psychological aspects of your sexual health concerns and the stress from your life transitions. - Monitor for potential side effects of the increased estrogen patch dosage, such as breast tenderness and spotting. These side effects typically resolve on their own. - Follow up appointment scheduled for December 21 at 4:30 pm Central Time. During this appointment, we will reassess your symptoms and the effectiveness of the increased estrogen patch dosage. Please carefully review the care plan we have decided upon, specific information regarding your medication, and important details about your treatment detailed below. Thank you for trusting us with your care! [email or web address] Not available 11/02/2024 18:04:24 Reason for Referral None Reported. Results Created Date Observation Date Name Description Value Unit Range Abnormal Flag Note LastModifiedBy Organization Detail LastModifiedTime Result Notes None recorded. Problems Name Problem SNOMED Code Status Onset Date Resolution Date Notes Provider Name and Address Organization Details Recorded Time Menopausal symptom 05099047 Active 2023 [place] [address] [place], [address], [employer] [facility] 4 07:43:29 Insomnia 131093723 Active 2023 [place] [address] [place], [address], [facility] [employer] [facility] 4 09:29:20 Obesity 465075206 Active 2023 [place] [address] [place], [address], [facility] [employer] 4 09:29:36 Anxiety 90577567 Active 2023 [place] [address] [place], [address], [facility] [employer] 4 09:33:28 Migraine 91333263 Active 2023 [place] [address] [place], [address], [facility] 4 09:34:03 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 2023 [place] [address] [place], [address], [facility] 4 09:45:32 Genitourina ry syndrome of menopause 1840742326025 9104 Active 2023 [place] [address] [place], [address], [facility] 4 09:45:32 Cognitive function finding 380228586 Active 2023 [place] [address] [address] [address], [facility] 4 09:46:08 Reduced libido 3693055 Active 2023 [place] [address] [place], [address], [facility] 4 09:51:19 Weight gain 1963690 Active 2023 [place] [address] [place], [address], [facility] 4 16:13:48 Changes in skin texture 840939927 Active 2023 [place] [address] [place], [address], [facility] 4 16:19:17 Fatigue 59167710 Active 2023 [place] [address] [place], [address], [facility] 4 16:58:18 Adult health examination Active 2023 [place] [address] [place], [address], [facility] 4 16:59:10 Abdominal bloating 650065813 Active 2023 [place] [address] [place], [address], [facility] 4 16:59:30 Abnormal weight gain 498858099 Active 2023 TIFFANY KEEN [place] [address], [place], [address], [facility] 5 17:01:47 Recurrent urinary tract infection 075242289 Active 2023 [place], [place], [facility] 4 11:42:02 Problem Notes None recorded. Procedures Surgical History Date Name Laterality Status Provider Name and Address Organization Details Recorded Time 10/22/19 22 Date of Last [place]ogram [place] [address] [place], , [facility] 11/21/2023 09:35:46 09/30/19 22 Date of Last Pap Smear completed ISMAEL RODRIGUE[place] [address] [place], , [facility] 11/21/2023 09:35:29 05/15/20 19 Date of Last Colonoscopy completed TIFFANY [place] [address], , [facility] 11/02/2024 16:53:02 Hysterectomy/carolina dder repair completed ISAIAS MONTERO [place], , [facility] 11/21/2023 09:36:29 Total Hysterectomy [place], , [facility] 03/17/2025 16:45:54 Partial Hysterectomy completed TIFFANY KEEN, CLOTH DESIZING RANGE OPERATOR CHIEF [address] [place], [address], [facility] 03/17/2025 16:45:54 Bladder Suspension/Sling completed TIFFANY KEEN, CLOTH DESIZING RANGE OPERATOR CHIEF [address] [place], [address], [facility] 03/17/2025 16:45:54 Imaging Results None recorded. Procedure Notes None recorded. Medical Equipment None Reported. Allergies Allergen ID Allergen Name Allergen Category Reaction Reaction Severity Criticality Documentation Date Start Date Code Code System Note Provider Name and Address Organization Details Recorded Time 967965 topiramat e medicatio n other Not available high 07/27/20242021 89410 RxNorm Tingl ing TIFFANY KEEN, CLOTH DESIZING RANGE OPERATOR CHIEF [address] [place], [address], [facility] 15:48:56 Medications Name Sig Start Date Stop Date Status Note LastModified by Organization Details LastModified Time Semaglutid e [facility]I Inject 0.25mg SQ weekly 03/17 completed Not Available Not Available Not Available Bundle B: 0.5 mL/week - [facility] Inject 50 units (0.5mg) SQ once weekly. 07/27 completed Not Available Not Available Not Available Tirzepatid e 2.5mg injection Everwell 1 mg Glycine/2 .5 mg Tirzepati de (0.2 mL) subcutane ously every week 2024 active [employer], [place], [place], [place] Only Not Available Not Available Not Available Testostero ne Compound Pump (4mg/gm) [facility] Apply 0.25gm (1 click) per day to inner thigh. Can increase to 2 clicks if needed. Wash hands after use. 2023 active Not Available Not Available Not Avai lable Testostero ne Cream 4mg/ml (2 clicks) - [facility] Apply 2 clicks to inner thigh daily 2024 active Not Available Not Available Not Avai lable Estriol+ Face Cream ([facility] Custom [facility]) use as directed 2023 active Not Available Not Available Not Avai lable Testostero ne Compound Pump (4mg/gm) [facility] Apply 0.5gm (2 clicks) per day to inner thigh. Wash hands after use. 2024 active Not Available Not Available Not Avai lable Semaglutid e [facility] Inject 0.25mg SQ weekly 2023 active Not Available Not Available Not Avai lable Prometrium 200 mg capsule Take 1 capsule every day by oral route at bedtime for 30 days. 2024 active Not Available Not Available Not Avai lable nitrofuran toin macrocryst al 50 mg capsule TAKE 1 CAPSULE BY MOUTH EVERY DAY NEEDED FOR POSTCOITA L PROPHYLAX IS active Not Available Not Available No t Available estradiol 0.075 mg/24 hr semiweekly transderma l patch APPLY 1 PATCH TRANSDERM ALLY TWICE A WEEK 03/17 completed Not Available Not Available Not Available sumatripta n 100 mg tablet TAKE ONE TABLET BY MOUTH AT THE ONSET OF MIGRAINE, MAY REPEAT IN 2 HOURS active Not Available Not Available No t Available Prometrium 100 mg capsule Take 1 capsule every day by oral route at bedtime for 30 days. 05/26 completed Not Available Not Available Not Available estradiol 0.1 mg/24 hr semiweekly transderma l patch Apply 1 patch twice a week by transderm al route. 2024 active Not Available Not Available Not Avai lable hydralazin e 25 mg tablet Take 1 tablet twice a day by oral route. 05/26 completed Not Available Not Available Not Available sulfametho xazole 800 mg-trimeth oprim 160 mg tablet TAKE 1 TABLET BY MOUTH TWICE A DAY FOR 3 DAYS 07/27 completed Not Available Not Available Not Available propranolo l 10 mg tablet TAKE 1 TABLET BY MOUTH EVERY 8 HOURS NEEDED FOR ANXIETY, FOR INSOMNIA, AND FOR PALPITATI ONS active Not Available Not Available No t Available cephalexin 500 mg capsule TAKE 1 CAPSULE BY MOUTH TWICE A DAY FOR 7 DAYS 07/27 completed Not Available Not Available Not Available Vivelle-Do t 0.05 mg/24 hr transderma l patch Apply 1 patch twice a week by transderm al route. 05/26 completed Not Available Not Available Not Available hydroxyzin e HCl 25 mg tablet TAKE 1 TABLET BY MOUTH 4 TIMES DAILY NEEDED FOR ANXIETY active Not Available Not Available No t Available estradiol 0.01% (0.1 mg/gram) vaginal cream APPLY TO VULVA AND VAGINA 1 GM TWO TO THREE TIMES PER WEEK active Not Available Not Available No t Available ondansetro n 4 mg disintegra ting tablet DISSOLVE 1 TABLET ON THE TONGUE EVERY 6 HOURS NEEDED FOR NAUSEA AND VOMITING active Not Available Not Available No t Available nitrofuran toin monohydrat e/macrocry stals 100 mg capsule TAKE 1 CAPSULE BY MOUTH TWICE DAILY FOR 5 DAYS 03/17 completed Not Available Not Available Not Available fiber active Not Available Not Availa ble Not Available magnesium glycinate active Not Available Not Available No t Available Vitals Date Recorded Body height Body mass index (BMI) Body weight Provider Name and Address Organization Details Last Updated DateTime 01/27/2024 172.72 cm 24.3 kg/m2 91270.[place] [address] [address] [id number], [facility] 01/27/2024 16:52:53 Date Recorded Body height Body mass index (BMI) Body weight Provider Name and Address Organization Details Last Updated DateTime 03/17/2025 162.56 cm 29.5 kg/m2 21[address].89 [place] [address] [facility] [address], [facility] 03/17/2025 17:00:48 Date Recorded Body height Body mass index (BMI) Body weight Provider Name and Address Organization Details Last Updated DateTime 05/26/2024 162.56 cm 27.1 kg/m2 61999.59 [place] [address] [facility] [address], [facility] 05/26/2024 10:31:14 Social History None recorded. Functional Status Question Answer Note LastModified by Organizat ion Details LastModified Time How many times per week do you consume alcohol? Less than 1 time per week Information not available 11/21/2023 Do you use any illicit or recreational drugs? No Information not available 11/21/2023 What is your level of alcohol consumption? Occasional Information not available 11/21/2023 Mental Status None recorded. Family History Relationship Description Onset Age of this Age Resolved Age Notes LastModified by Organization Details LastModified Time Maternal Grandmother Malignant tumor of colon [email or web address] Not available 10/25 09:37:16 Paternal Grandmother Malignant tumor of breast [email or web address] Not available 10/25 09:37:25 Father Heart disease [email or web address] Not available 10/25 09:37:34 Mother Hypertensive disorder [email or web address] Not available 2024 16:45:47 Mother Osteoporosis [email or web address] Not avail able 03/17/2025 16:45:48 Maternal Grandfather Heart disease [email or web address] Not available 2024 16:45:48 Paternal Grandfather Heart disease [email or web address] Not available 2024 16:45:48 Medical History Condition Response Anxiety Disorder Y Migraines Y Gynecological History Statement/Question Response Date of Last Colonoscopy 05/15/2019 Date of Last Mammogram 10/22/2021 Date of [...] SNOMED-CT Code Diagnosis ICD10 Code Diagnosis Note [id number] ISMAEL RODRIGUEZ NP Main Office [address] [place] [address] 11/21/2023 08:32:40 11/22/2023 07:23:55 Menopausal symptom 13806331 N95.1 - Patient has been using estrogen cream from [employer] with some improvemen t in hot flashes and night sweats, but still experienci ng symptoms.- Plan to switch patient to an estrogen patch (0.5) and add oral progestero ne (100 mg) to address menopausal symptoms more effectivel y.- Follow up in four weeks to assess the effectiven ess of the new hormone therapy regimen. Insomnia 192231537 G47.0 0 - Patient struggling with sleep, possibly related to menopausal symptoms and anxiety.- Adding progestero ne to hormone therapy may help improve sleep.- Will monitor sleep improvemen t with new hormone therapy regimen and follow up in four weeks. Obesity 964543375 E66.9 - Patient has gained significan t [...] management progress. Genitourin bjorn syndrome of menopause 5427230746 8100841 N95.8 N39.8 N94.10 - Patient experienci ng vaginal dryness and discomfort during intercours e.- Plan to prescribe vaginal estrogen to address dryness and improve tissue health.- Patient will use vaginal estrogen twice a week on the days she changes her estrogen patch.- Follow up in four weeks to assess the effectiven ess of the treatment. Blogic edu cation given 405760304 Z71.9 - Emailed patient education materials on supplement s for sleep, nutrition, and exercise recommenda tions.- Encouraged patient to follow up in four weeks to discuss progress and any concerns. Cognitive function finding 488407113 R41.9 - Patient reports brain fog, disorganiz ed thoughts, and difficulty focusing.- Will monitor cognitive function improvemen t with new hormone therapy regimen and follow up in four weeks. Reduced libido 2421546 R 68.82 - Patient experienci ng reduced libido and difficulty with arousal.- Plan to address libido issues by balancing hormones with the new therapy regimen.- Will reevaluate the need for additional treatments , such as arousal cream, after assessing the effectiven ess of the new hormone therapy.- Follow up in four weeks to discuss progress and any concerns. [id number] ISMAEL RODRIGUEZ NP Main Office [address] [place] [address] 12/23/2023 15:03:37 12/24/2023 04:32:07 Menopausal symptom 38795196 N95.1 - Patient experienci ng some symptoms returning, such as hot flashes- Increased estrogen patch to 0.75 and progestero ne to 200 mg to address symptoms- Will monitor symptoms and follow up in four weeks Obesity 794706790 E66.9 - Discussed various weight loss options, including Berberine, Metformin, and compounded GLP-1 (Semagluti de)- Patient opted to try compounded Semaglutid e for one month to see if it helps with weight loss- Advised to maintain a high protein diet, aim for less than 100 grams of carbs, and continue exercise- Will re-evaluat e weight loss progress in four weeks Insomnia 899787269 G47.0 0 - Increased progestero ne to 200 mg to potentiall y improve sleep quality- Will monitor sleep and follow up in four weeks Reduced libido 2473496 R 68.82 - Suspect that low estrogen may be contributi ng to reduced libido- Increased estrogen patch to 0.75 to see if it improves libido- Will monitor and follow up in four weeks. Weight gain 3862921 R63. 5 - Addressed through obesity treatment plan (see diagnosis 2) Changes in skin texture 036582999 R23.4 - Discussed trying extra dial cream for skin firmness- Patient agreed to try the cream and will monitor results- Follow up in four weeks to assess effectiven ess [id number] ISMAEL RODRIGUEZ NP Main Office [address] [place] [address] 01/27/2024 16:04:15 01/28/2024 02:13:46 Menopausal symptom 23883987 N95.1 - Patient experienci ng some symptoms returning, such as hot flashes- Increased estrogen patch to 0.75 and progestero ne to 200 mg to address symptoms- Will monitor symptoms and follow up in four weeks Changes in skin texture 316493442 R23.4 - Discussed trying extra dial cream for skin firmness- Patient agreed to try the cream and will monitor results- Follow up in four weeks to assess effectiven ess Genitourin bjorn syndrome of menopause [id number] N95.8 N39.8 N94.10 - Patient experienci ng vaginal dryness and discomfort during intercours e.- Plan to prescribe vaginal estrogen to address dryness and improve tissue health.- Patient will use vaginal estrogen twice a week on the days she changes her estrogen patch.- Follow up in four weeks to assess the effectiven ess of the treatment. Insomnia [id number] G47.0 0 - Increased progestero ne to 200 mg to potentiall y improve sleep quality- Will monitor sleep and follow up in four weeks Obesity [id number] E66.9 - Discussed various weight loss options, including Berberine, Metformin, and compounded GLP-1 (Semagluti de)- Patient opted to try compounded Semaglutid e for one month to see if it helps with weight loss- Advised to maintain a high protein diet, aim for less than 100 grams of carbs, and continue exercise- Will re-evaluat e weight loss progress in four weeks Reduced libido 6627238 R 68.82 - Suspect that low estrogen may be contributi ng to reduced libido- Increased estrogen patch to 0.75 to see if it improves libido- Will monitor and follow up in four weeks. Weight gain 1592189 R63. 5 - Addressed through obesity treatment plan (see diagnosis 2) Fatigue [id number] R53.83 Adult heal th examination [id number] E61.1 M25.9 Abdominal bloating 43526 [id number] R14.0 [id number] ISMAEL RODRIGUEZ NP Main Office [id number] [place] [address] 05/26/2024 09:34:03 05/29/2024 06:31:47 Obesity [id number] E66.9 - Patient has been on semaglutid [...] and side effects. Abnormal weight gain 161 070111 R63.5 - Patient's weight has remained stable [...] reassess weight and side effects. Reduced libido 8718570 R 68.82 - Patient reports reduced libido [...] and discuss further treatment options if necessary. [id number] TIFFANY KEEN NP Main Office [address] [place] [address] 07/27/2024 10:37:17 07/28/2024 09:12:59 Reduced libido 6506006 R68.82 - Patient reports ongoing low libido [...] and symptom improvemen t in 6 weeks. [facility] edu cation given [id number] Z71.9 - Educated patient on the applicatio [...] symptoms and review lab results. Menopausal symptom 86357 002 N95.1 - Patient reports ongoing symptoms [...] for October 19 at 4:00 PM. Fatigue 94308639 R53.83 - Patient reports significan t fatigue, described as feeling like walking through [employer].- Discussed potential benefits of testostero ne therapy for fatigue, although evidence in women is limited.- Initiated topical testostero ne therapy as described above.- Follow-up labs ordered to assess testostero ne levels and symptom improvemen t in 6 weeks. Recurrent urinary tract infection [id number] N39.0 - Patient reports four UTIs in [...] intake.- Prescripti on for Macrobid sent to [facility]. Genitourin bjorn syndrome of menopause [id number] 8004788 N95.8 - Patient reports vaginal dryness and recurrent UTIs.- Currently using vaginal estrogen cream 1 gram twice a week.- Advised to increase vaginal estrogen cream to 1 gram three times a week.- Educated patient on the importance of continuing vaginal estrogen to alleviate symptoms.- Prescripti on for vaginal estrogen cream adjusted to reflect increased usage. [id number] TIFFANY KEEN NP Main Office [address] [place] [address] 11/02/2024 16:09:25 11/03/2024 04:14:53 Menopausal symptom 71558512 N95.1 - Patient reports recurrence of breakthrou gh hot flashes, night sweats, and sleep disturbanc es over the past month.- Increased estrogen patch dosage for 8 weeks to address these symptoms.- Monitoring for improvemen t in sleep, reduction in hot flashes and night sweats, and overall symptom relief.- Educated patient on potential side effects of increased estrogen, including breast tenderness and spotting, which typically resolve on their own.- Follow-up scheduled for December 21 at 4:30 PM to reassess symptoms and treatment efficacy. Fatigue 57625010 R53.83 - Patient reports some improvemen t in fatigue since starting testostero ne cream.- Continue current testostero ne cream dosage at 2 clicks per day.- Monitoring for further improvemen t in energy levels. Reduced libido 6901564 R 68.82 - Libido has improved with testostero ne cream, but patient still experience s difficulty with arousal and orgasm.- Discussed potential psychologi pratima and physical factors contributi ng to this issue.- Encouraged patient to consider counseling to address potential psychologi pratima factors.- Continue current testostero ne cream dosage at 2 clicks per day. Genitourin bjorn syndrome of menopause [id number] N95.8 - Patient reports vaginal dryness, and irritation .- Continue vaginal estrogen cream twice a week.- Advised patient to try reducing use of additional moisturize rs like Replens to see if vaginal estrogen alone is sufficient .- Monitoring for improvemen t in dryness and irritation . Recurrent urinary tract infection [id number] N39.0 - Patient has been using prophylact ic antibiotic s regularly and reports no further UTIs.- Continue current prophylact ic antibiotic regimen. Health edu cation given [id number] Z71.9 - Educated patient on the importance of monitoring symptoms and potential side effects of increased estrogen dosage.- Discussed the benefits and risks of current treatment plan.- Patient understand s and agrees with the treatment plan. Abnormal weight gain 161 037568 R63.5 - Patient reports weight gain of 12-15 pounds over the past few months despite healthy lifestyle changes.- Monitoring for potential correlatio n with sleep disturbanc es and hormonal changes.- Increased estrogen patch dosage to address potential hormonal imbalance contributi ng to weight gain. Health Concerns Section Related Observation LastModified by Organization Detai ls LastModified Time None Recorded Concern Status LastModified by Organization Details LastModified Time None Recorded Advance Directives Directive None Recorded Payers Insurance Date Sequence Insurance Name Policy Number Policy Ruvalcaba Covered Member ID [id number] Member ID Guarantor Name 03/14/2025 1 [facility] [id number] Anabell Louie [id number] Anabell Louie Notes Date Note Type Note [...] Modality: Video Provider Location: Home Patient State: [place] [ ]I have obtained consent from the patient for [...] Virtual Visit AttestationModality: VideoProvider Location: HomePatient State: [place][ ]I have obtained consent from the patient for use of autoscribe. Patient is a 48 year old female presenting with concerns about rapid weight gain, sleep disturbances, and menopausal symptoms despite using estrogen cream. She also reports anxiety and migraines. Menopausal Symptoms:- Patient has been using an estrogen cream from [employer] for over a year, which has provided [...] is currently using an estrogen cream from [employer], which she applies three pumps of daily.- [...] Virtual Visit AttestationModality: VideoProvider Location: HomePatient State: [place][ ]I have obtained consent from the patient for [...] impact: Have trouble concentrating, feel scattered and disorganized7. Hair + Skin ChangesSeverity of hair+skin changes: Moderate8. Joint pain + Bone Loss + Fracture RiskSeverity (qualitative): ModerateSeverity of impact to work (quantitative): 05/05--PAST MEDICAL HISTORYAnxiety, Endometriosis, MigrainesNo breast cancerAny other cancers: None; Dates: Unknown--GYNECOLOGY HISTORYGYN HxLMP:Menstrual stage reported: I m not sureOBHxReports not likely to be G7+F5Etzecujnh for 48 months in total for all childrenSEXUAL HxPatient is sexually active with MenCurrent Contraception: I used contraception in the pastDetails: Unknown, since: UnknownPast Contraception: Oral contraceptive, Condoms, VasectomyGYN SURGICAL HxBladder suspension/sling, Uterus removed, Cervix removed- Reason: Prolapse and incontinenceHRT HxPatient is or has used HRT: Systemic (pills, patch, spray, gel, vaginal ring ([employer])- Details: [employer] bioidentical estrogen cream--FAMILY HISTORYFamily s medical history: Heart disease, Stroke, Osteoporosis, Colon or rectal cancer, Breast cancerWhich family member: Maternal grandmother colon cancer, paternal grandmother breast cancer, father heart disease--SOCIAL HISTORYCurrently working: [employer] - Medical TechnologistRace/ethnicit y: White (Eg: Cook Islander, Lisa, Cymro, Pashto, Estonian, Tajik, etc)Sex assigned at : FemaleCurrent Gender: Female; [...] Biopsy: Performed on approx. Unknown, results were UnknownBone HealthBMD: UnknownNo past fracturesNo steroid useMENTAL HEALTHHistory of abuse: None; No abuse counselingGAD-7 Score = 9PHQ-9 Score = 12--GENERAL HEALTHBMI = 25Height in inches: 68Weight in pounds: 162She has been struggling with weight management for 2 years and is seeking options for medications for weight reduction and improvement of overall health. Highest BMI: 25Current weight: 162 BMI:25Goal weight: 140 BMI:Last time at goal weight: 1 year Her comorbidities include none. Her highest HbA1c was none. She has previously tried: ([employer]IE[employer]: include medication, duration, outcome for Prior Auths) Her personal history does not include:thyroid cancergallbladder diseasepancreatitisAn eating disorder including anorexia, bulimia, orthorexia, binge or others. Her family history does not include:thyroid cancer Her most recent blood work was on 1 year ago just basic labs [place] revealed: [place] [id number] [facility], [place], [address], [facility] 01/27/2024 20:01:21 4 text/html Patient is a [...] patch 0.75 mg- Semaglutide Social Hx:- Occupation: [employer] Former Virtual Visit Attestation Modality: Video Provider Location: Home Patient Location: Home Patient State: [place] [ ]I have obtained consent from the patient [place] use [place]. [place] [address] [facility] [place], [address], [facility] [employer] 05/29/2024 13:46:26 text/html Virtual Visit AttestationModality: VideoProvider Location: Home Patient Location: Home Patient State: [place] Patient is a 48 year old female [...] Describes feeling like she is walking through [place] on her days off.- Hopes that testosterone [...] week Social Hx:- Occupation: [place] [employer] [address], [place], [address], [facility] - [employer] 07/28/2024 14:54:31 5 text/html Virtual Visit AttestationModality: VideoProvider Location: Home Patient Location: Home Patient State[place] Patient is a 49 year old female presenting with concerns about weight gain, sleep disturbances, night sweats, hot flashes, migraines, and low libido. She is also experiencing dry eyes and vaginal dryness. She is currently on hormone replacement therapy and has recently started using testosterone cream. Hormone Replacement Therapy:- Patient has been on hormone replacement therapy for an a little over a year.- She recently started using testosterone cream, applying 2 pumps daily.- She had her labs done after starting the testosterone cream, which showed increased levels.- She reports that she hasn't noticed much of a difference since starting the testosterone cream, but feels her energy levels might be better.- She mentions that using the cream at night makes it hard for her to sleep, so she has been applying it in the morning. Weight Gain:- Patient reports gaining 12 to 15 pounds in the last couple of months, after previously losing weight and getting down to 150 pounds.- She is frustrated with the weight gain, especially as she has been trying to make healthy changes and has been doing intermittent fasting. Sleep Disturbances and Night Sweats:- Patient has been having trouble sleeping and has been experiencing night sweats.- She wakes up drenched in sweat and is unsure if these symptoms are stress-related or if her dosages need to be adjusted. Hot Flashes:- Patient has been experiencing occasional breakthrough hot flashes.- She reports that these hot flashes have been occurring more frequently in the last month or so.- She doesn't believe the hot flashes started when she began using the testosterone cream. Migraines:- Patient reports an increase in migraines, which she hasn't had for a while.- She currently has a severe migraine. Dry Eyes and Vaginal Dryness:- Patient has severe dry eyes, which her eye doctor suggested might be improved by adjusting her hormone levels.- She also reports vaginal dryness and has been using vaginal estrogen cream twice a week, along with a boric acid aloe vaginal moisturizer on the days she doesn't use the estrogen cream. Libido:- Patient reports a low libido and an inability to climax.- She is in a new relationship and has a vibrant sex life, but feels a mental disconnect during intercourse.- She feels interested but can't fully be present. 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 Lab Results:- Patient's recent lab results showed a total testosterone level of 44 and a free testosterone level of 5.9, which was a significant increase from her previous levels. 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
[2025-03-18 13:19] VITALS: BP 124/69; PULSE 73; RESP 17; TEMP 36.3; O2SAT 100; BMI 25.8
[2025-03-18] MEDS: SIMETHICONE ORAL SUSPENSION 20 MG/0.3 ML 30 ML BOTTLE 1.8 ML PO (13:28)
[2025-03-18] MEDS: LACTATED RINGERS 1,000 ML 150 ML IV CONT (13:30)
--- NOTE | 2025-03-18 13:47 | P.PNAN_ITS ---
Anes - Initial Pre Proc Eval Procedure: Operation Date: 03/18/25 14:30 Proposed Procedures p Esophagogastroduodenoscopy - Joe Leslie MD Date/Time: 03/18/25 13:47 Surgeon: Joe Leslie MD Pre Op Diagnosis: Gastro-esophageal reflux disease without esophagit Patient Data Age: 49 Gender: F Height: 1.73 m Weight: 77 kg Last Vital Signs Temp 97.3 F L 03/18/25 13:19 Pulse 73 03/18/25 13:19 Resp 17 03/18/25 13:19 BP 124/69 03/18/25 13:19 Pulse Ox 100 03/18/25 13:19 O2 Del Method Room Air 03/18/25 13:19 Allergies Allergy/AdvReac Type Severity Reaction Status Date / Time No Known Allergies Allergy Verified 03/18/25 13:16 Home Medications ?Medication ?Instructions ?Recorded ?Confirmed ?Type sumatriptan succinate 100 mg See Rx Instructions PO .COMPLEX 10/19/19 03/05/25 Rx tablet (Imitrex) PRN migraine headache #9 tabs estradiol 0.1 mg/24 hr semiweekly 1 patch transdermal .biweekly 03/05/25 03/05/25 History transdermal patch magnesium 200 mg tablet 200 mg PO DAILY 03/05/25 03/05/25 History progesterone micronized 200 mg 200 mg PO QPM 03/05/25 03/05/25 History capsule propranolol 10 mg tablet 10 mg PO Q8H 03/05/25 03/18/25 History Patient hx anesthesia problems: none Family hx anesthesia problems: none Results Review: All pre-operative results and documents have been reviewed as part of the pre- operative evaluation. [facility] Past Medical History Medical History GI bleed Surgical History Surgical History H/O laparoscopy Family History Family History Mother Family history of osteoporosis Family history of mental disorder Depression Family history of migraine headaches Family history of arthritis Sibling Family history of mental disorder Father Hypertension Patient's father is in good health Family history of arthritis Social History Social History Smoking status: Never smoker Alcohol intake: current Drinks per week: 2 Alcohol use details: Socially Substance use: never Substance use type: does not use Living arrangements: with family Spiritual care concerns: No Anes - Eval Final PreProcedure Day of Procedure 03/18/25 13:47 Patient weight: normal Lungs: normal air movement Airway: Mallampati scale class II Neurological: alert and oriented Last oral intake: >/= 8 hours ASA classification: I Emergent: no Anesthetic plan: proceed Anesthesia type and monitoring: general GIVS and standard monitoring Results Review: All pre-operative results and documents have been reviewed as part of the pre- operative evaluation. GERD, active overall without cp or sob w 1-2 fos. Informed Consent: The patient's anesthetic plan and its attendant risks and benefits were discussed with the patient/family/POA. Questions were solicited and answers provided to the satisfaction of the patient/family/POA.
--- NOTE | 2025-03-18 14:30 | PM.IMHP ---
H&P: HPI History of Present Illness Date/Time: 03/18/25 14:30 Chief Complaint: GERD Narrative: the patient was diagnosed with severe erosive esophagitis a few years ago, and at that time she was prescribed high-dose omeprazole which she discontinued when she felt well. Currently she is having daily heartburn symptoms and sometimes regurgitation, no dysphagia. She is referred for an EGD. Review of Systems Review of Systems: All systems reviewed & are unremarkable except as noted in HPI and below PMFSH Past Medical History Medical History (Updated 03/18/25 @ 14:31 by Joe Leslie MD) GI bleed Surgical History Surgical History H/O laparoscopy Family History Family History Mother Family history of osteoporosis Family history of mental disorder Depression Family history of migraine headaches Family history of arthritis Sibling Family history of mental disorder Father Hypertension Patient's father is in good health Family history of arthritis Social History Social History Smoking status: Never smoker Alcohol intake: current Drinks per week: 2 Alcohol use details: Socially Substance use: never Substance use type: does not use Living arrangements: with family Spiritual care concerns: No Meds Home Medications and Allergies Home Medications ?Medication ?Instructions ?Recorded ?Confirmed ?Type sumatriptan succinate 100 mg See Rx Instructions PO .COMPLEX 10/19/19 03/05/25 Rx tablet (Imitrex) PRN migraine headache #9 tabs estradiol 0.1 mg/24 hr semiweekly 1 patch transdermal .biweekly 03/05/25 03/05/25 History transdermal patch magnesium 200 mg tablet 200 mg PO DAILY 03/05/25 03/05/25 History progesterone micronized 200 mg 200 mg PO QPM 03/05/25 03/05/25 History capsule propranolol 10 mg tablet 10 mg PO Q8H 03/05/25 03/18/25 History Allergies Allergy/AdvReac Type Severity Reaction Status Date / Time No Known Allergies Allergy Verified 03/18/25 13:16 Vital Signs Vital Signs - 24 hr 03/18/25 13:19 Temperature 97.3 F L Pulse Rate 73 Respiratory Rate 17 Blood Pressure 124/69 Pulse Oximetry 100 Oxygen Delivery Room Air Exam Const: General: cooperative and healthy appearing Resp: Effort & Inspection: normal respiratory effort and able to speak in complete sentences Auscultation: clear to auscultation bilaterally Cardio: Rate: regular rate Rhythm: regular rhythm GI: Inspection: normal to inspection GI Palp: No No hepatosplenomegaly present Auscultation: normal bowel sounds Rectal Exam: deferred Skin: General skin exam: normal color Psych: Appearance: grossly normal Mental Status: mental status grossly normal Assessment and Plan Assessment and plan (1) GERD (gastroesophageal reflux disease): Code(s): K21.9 - Gastro-esophageal reflux disease without esophagitis Status: Acute Assessment and Plan: The patient is deemed a good candidate for the procedure. Consent signed. Will proceed.
--- NOTE | 2025-03-18 14:43 | S_PTH ---
PATIENT: Anabell Mendoza LOC: [facility] #:[id number] AGE/SX: 49/F ROOM: RE03/18/[address]: Joe Leslie MD : 1975 BED: DIS: 03/18/2025 SPEC #: [id number] RECD: 03/19/25 09:08 STATUS: OC REQ #: [id number] COOPER: 03/18/25 14:[address]: Joe Leslie DEPT: [facility] Surgical RECD BY: Zoie Martin Tissues: A - Esophageal Biopsy Procedures: Hematoxylin and Eosin Stain Gross and Microscopic Level 4
[2025-03-18 14:50] VITALS: BP 128/74; PULSE 84; RESP 15; O2SAT 100
[2025-03-18 15:00] VITALS: BP 132/81; PULSE 68; RESP 19; O2SAT 100
[2025-03-18 15:10] VITALS: BP 141/75; PULSE 69; RESP 20; O2SAT 100
== END 2025-03-18 15:25 | disposition home or self-care (01) ==
PROVIDERS: Visit Provider Internal Medicine Gastroenterology
PROC: 0DJ08ZZ Inspection of Upper Intestinal Tract, Via Natural or Artificial Opening Endoscopic (ICD-10-PCS; CPT 43239; principal; 2025-03-18 14:30)
DX: K22.89 Other specified disease of esophagus (principal); K22.70 Barrett's esophagus without dysplasia; K21.9 Gastro-esophageal reflux disease without esophagitis; Z98.890 Other specified postprocedural states
CPT/HCPCS: 43239; 88305; J2003; J2704; J7120

== ENCOUNTER 2025-08-06 02:52 | Day surgery (SDC) | payer OTHER, SELFPAY ==
[2025-08-02 10:08] VITALS: BMI 24.3
[2025-08-06 12:28] VITALS: BP 111/79; PULSE 83; RESP 16; TEMP 36.4; O2SAT 100
--- NOTE | 2025-08-06 12:28 | P.PNAN_ITS ---
Anes - Initial Pre Proc Eval Procedure: Operation Date: 08/06/25 13:30 Proposed Procedures p Diagnostic Colonoscopy - Joe Leslie MD Date/Time: 08/06/25 12:28 Surgeon: Joe Leslie MD Pre Op Diagnosis: Melena, Diarrhea, unspecified Patient Data Age: 49 Gender: F Height: 1.73 m Weight: 72.57 kg Allergies Allergy/AdvReac Type Severity Reaction Status Date / Time No Known Allergies Allergy Verified 08/06/25 12:27 Home Medications ?Medication ?Instructions ?Recorded ?Confirmed ?Type sumatriptan succinate 100 mg See Rx Instructions PO .C OMPLEX 10/19/19 08/02/25 Rx tablet (Imitrex) PRN migraine headache #9 tab s estradiol 0.1 mg/24 hr semiweekly 1 patch transdermal .biweekly 03/05/25 08/02/25 History transdermal patch magnesium 200 mg tablet 200 mg PO DAILY 03/05/2508/19 History progesterone micronized 200 mg 200 mg PO QPM 03/05/25 08/06/25 History capsule propranolol 10 mg tablet 10 mg PO Q8H 03/05/25 History omeprazole 40 mg capsule,delayed See Rx Instructions . Route 06/21/25 08/06/25 Rx release .COMPLEX #90 caps Patient hx anesthesia problems: none Family hx anesthesia problems: none Results Review: All pre-operative results and documents have been reviewed as part of the pre- operative evaluation. [facility], [facility] Past Medical History Medical History GI bleed Surgical History Surgical History H/O laparoscopy Family History Family History Mother Family history of osteoporosis Family history of mental disorder Depression Family history of migraine headaches Family history of arthritis Sibling Family history of mental disorder Father Hypertension Patient's father is in good health Family history of arthritis Social History Social History Smoking status: Never smoker Alcohol intake: current Drinks per week: 2 Alcohol use details: Socially Substance use: never Substance use type: does not use Living arrangements: with family Spiritual care concerns: No Anes - Eval Final PreProcedure Day of Procedure 08/06/25 12:28 Patient weight: normal Heart: regular rate and rhythm Lungs: clear to auscultation Airway: Mallampati scale class II Neurological: alert and oriented Last oral intake: >/= 8 hours ASA classification: II Emergent: no Anesthetic plan: proceed Anesthesia type and monitoring: general GIVS and standard monitoring Results Review: All pre-operative results and documents have been reviewed as part of the pre- operative evaluation. Informed Consent: The patient's anesthetic plan and its attendant risks and benefits were discussed with the patient/family/POA. Questions were solicited and answers provided to the satisfaction of the patient/family/POA.
[2025-08-06] MEDS: LACTATED RINGERS 1,000 ML 150 ML IV CONT (12:36)
--- NOTE | 2025-08-06 12:48 | PM.IMHP2 ---
H&P: HPI History of Present Illness Date/Time: 08/06/25 12:48 Chief Complaint: Rectal bleeding Narrative: Patient has been complaining of intermittent rectal bleeding, bright red type for the past few months. A few years ago, she was admitted to [facility] for rectal bleeding and she was told that she had ?colitis?. She is currently not receiving any treatment for inflammatory bowel disease. She is now referred for colonoscopy. Review of Systems Review of Systems: All systems reviewed & are unremarkable except as noted in HPI and below PMFSH Past Medical History Medical History (Updated 08/06/25 @ 12:49 by Joe Leslie MD) GI bleed Surgical History Surgical History H/O laparoscopy Family History Family History Mother Family history of osteoporosis Family history of mental disorder Depression Family history of migraine headaches Family history of arthritis Sibling Family history of mental disorder Father Hypertension Patient's father is in good health Family history of arthritis Social History Social History Smoking status: Never smoker Alcohol intake: current Drinks per week: 2 Alcohol use details: Socially Substance use: never Substance use type: does not use Living arrangements: with family Spiritual care concerns: No Meds Home Medications and Allergies Home Medications ?Medication ?Instructions ?Recorded ?Confirmed ?Type sumatriptan succinate 100 mg See Rx Instructions PO .COMPLEX 10/19/19 08/02/25 Rx tablet (Imitrex) PRN migraine headache #9 tabs estradiol 0.1 mg/24 hr semiweekly 1 patch transdermal .biweekly 03/05/25 08/02/25 History transdermal patch magnesium 200 mg tablet 200 mg PO DAILY 03/05/25 08/06/25 History progesterone micronized 200 mg 200 mg PO QPM 03/05/25 08/06/25 History capsule propranolol 10 mg tablet 10 mg PO Q8H 03/05/25 08/06/25 History omeprazole 40 mg capsule,delayed See Rx Instructions .Route 06/21/25 08/06/25 Rx release .COMPLEX #90 caps Allergies Allergy/AdvReac Type Severity Reaction Status Date / Time No Known Allergies Allergy Verified 08/06/25 12:27 Vital Signs Vital Signs - 24 hr 08/06/25 12:28 Temperature 97.5 F L Pulse Rate 83 Respiratory Rate 16 Blood Pressure 111/79 Pulse Oximetry 100 Oxygen Delivery Room Air Exam Const: General: cooperative and healthy appearing Resp: Effort & Inspection: normal respiratory effort and able to speak in complete sentences Auscultation: clear to auscultation bilaterally Cardio: Rate: regular rate Rhythm: regular rhythm GI: Inspection: normal to inspection GI Palp: No No hepatosplenomegaly present Auscultation: normal bowel sounds Rectal Exam: deferred Skin: General skin exam: normal color Psych: Appearance: grossly normal Mental Status: mental status grossly normal Assessment and Plan Assessment and plan (1) Bright red rectal bleeding: Code(s): K62.5 - Hemorrhage of anus and rectum Status: Acute Assessment and Plan: The patient is deemed a good candidate for the procedure. Consent signed. Will proceed. Prior Studies I have reviewed the following patient records and this information was taken into consideration when formulating the assessment and plan.: previous labs, previous ER visits, previous hospitalizations and previous clinic visits
--- NOTE | 2025-08-06 13:15 | S_PTH ---
PATIENT: Anabell Mendoza LOC: [facility] U#:[id number] AGE/SX: 49/F ROOM: RE08/06/[address]: Joe Leslie MD : 1975 BED: DIS: 08/06/2025 SPEC #: [id number] RECD: 08/06/25 13:59 STATUS: OC REQ #: [id number] COOPER: 08/06/25 13:[address]: Joe Leslie DEPT: [facility] Surgical RECD BY: Zoie Martin ENTERED: 08/06/25 14:00 SP TYPE: Surgical OTHR DR: DAVONTE JULIAN,LUCIANA Luz Tissues: A - Colon Polypectomy Procedures: Hematoxylin and Eosin Stain Gross and Microscopic Level 4
[2025-08-06 13:19] VITALS: BP 133/69; PULSE 87; RESP 21; O2SAT 100
[2025-08-06 13:29] VITALS: BP 119/67; PULSE 88; RESP 24; O2SAT 100
[2025-08-06 13:39] VITALS: BP 123/81; PULSE 77; RESP 20; O2SAT 100
--- NOTE | 2025-08-06 13:49 | SUR.PHASEII ---
Notified from Luna Hernandez that patient has occasional PVC's back in procedure room. Patient stated has seen a doctor in the past for having heart palpitations. Patient is asymptomatic and does not report to have chain pain. Patient educated by Luna Hernandez and I. Also educated to follow up with primary doctor. Discharge papers given and told to contact with any questions or concerns.
== END 2025-08-06 13:54 | disposition home or self-care (01) ==
PROVIDERS: PCP Internal Medicine; Referring Provider Nurse Practitioner Family; Visit Provider Internal Medicine Gastroenterology
PROC: 0DJD8ZZ Inspection of Lower Intestinal Tract, Via Natural or Artificial Opening Endoscopic (ICD-10-PCS; CPT 45378; principal; 2025-08-06 13:30)
DX: D12.2 Benign neoplasm of ascending colon (principal); K64.8 Other hemorrhoids; Z98.890 Other specified postprocedural states
CPT/HCPCS: 45385; 88305; J2003; J2704; J7120